=== PATIENT | female | born 1955 | race Caucasian/White ===

== ENCOUNTER → 2016-11-20 | Outpatient (CLI) | payer BC ==
[~2016-11-20] MED LIST: AC500T PO; CLOP75TA PO; KLOR CON; MELO-195 PO; METO200T6; NFNEB10T PO; OSLT75C PO; Pravastatin Sodium PO; TELM80TA3 PO; TRAM50TA2 PO; XANAX; [UNRECOGNIZED DRUG - CODE]; [UNRECOGNIZED DRUG - OTHER]
--- NOTE | 2016-11-20 13:42 | Diagnostic Imaging Report ---
Thoracic spine. INDICATION: Back pain. AP, lateral, and swimmer views were obtained. On the AP view there is dextroscoliosis of the midthoracic spine and levoscoliosis of the thoracolumbar junction and upper lumbar spine. These findings are perhaps slightly worse than noted on the chest exam of 10/25/2011. There is degenerative disc and bony disease involving the mid and lower thoracic spine as well. There is no fracture or acute bony abnormality appreciated. There is no sign of a paraspinal mass. IMPRESSION: 1. There is no evidence for an acute bony abnormality. 2. There is degenerative disease involving the mid and lower thoracic spine including dextroscoliosis of the mid thoracic spine and levoscoliosis of the thoracolumbar junction and upper lumbar spine. 3. If there is clinical concern regarding spinal stenosis or nerve root encroachment, then MRI would be recommended for additional study. Dictated by: Dictated on workstation # [id number]
--- NOTE | 2016-11-20 14:26 | Diagnostic Imaging Report ---
EXAMINATION: Lumbar spine. INDICATION: Back pain. AP, lateral, and spot lateral views were obtained. COMPARISON: There are no previous lumbar spine examinations available for comparison. FINDINGS: As noted on the thoracic spine exam performed in conjunction with this study, there is levoscoliosis of the thoracolumbar junction and upper lumbar spine. The intervertebral spaces are fairly well maintained. The lateral view also shows a 10-20% compression fracture of the inferior endplate of L1. I suspect this injury is long-standing in nature. There is no acute bony abnormality noted. There is no sign of a paraspinal mass. There are vascular wire mesh stent grafts in the region of the common iliac artery origins. There is mild symmetrical sclerosis of the sacroiliac joints. IMPRESSION: 1. The compression deformity of the inferior endplate of L1 is most likely long-standing in nature. There is no acute bony abnormality noted. 2. There is levoscoliosis of the thoracolumbar junction and upper lumbar spine. 3. If there is clinical concern regarding spinal stenosis or nerve root encroachment, then MRI would be recommended for additional study. Dictated by: Dictated on workstation # [id number]
== END ==
LOC: RAD 10:08
PROVIDERS: ATTEND Chiropractor
DX: M54.5 Low back pain (principal); M54.6 Pain in thoracic spine
CPT/HCPCS: 72072; 72100

== ENCOUNTER → 2017-05-12 | Outpatient (CLI) | payer BC ==
--- NOTE | 2017-05-12 15:33 | Diagnostic Imaging Report ---
Bilateral screening mammogram 2D views with tomosynthesis. The current study was also evaluated with a Computer Aided Detection (CAD) system. INDICATION: Screening. No current complaints stated on the questionnaire. COMPARISON: 11/21/15 FINDINGS: The breasts are composed of heterogeneously dense parenchyma which may decrease mammographic sensitivity. Benign-appearing calcifications are seen. Allowing for technique and positional differences, no suspicious change is seen. IMPRESSION: No significant change. ACR BI-RADS Category 2: Benign findings. Result letter will be mailed to the patient. Note: At least 10% of breast cancer is not imaged by mammography. Dictated by: Dictated on workstation # [id number]
== END ==
LOC: RAD 10:01
PROVIDERS: ATTEND Nurse Practitioner Family
DX: Z12.31 Encounter for screening mammogram for malignant neoplasm of breast (principal)
CPT/HCPCS: 77067

== ENCOUNTER → 2018-01-05 | Outpatient (CLI) | payer BC ==
--- NOTE | 2018-01-05 12:42 | Diagnostic Imaging Report ---
INDICATION: History of tobacco use with a approximately 30 pack year history. TECHNIQUE: Noncontrast, low-dose CT imaging performed according to lung cancer screening protocol. COMPARISON: CT abdomen and pelvis 03/03/2012 FINDINGS: HEART/MEDIASTINUM: Heart size is borderline. There is dense mitral and to a lesser degree aortic valvular calcification. At least moderate severity coronary artery calcification present. Thoracic aortic contour unremarkable. No suggestion for pathologically enlarged mediastinal lymph nodes on limited, noncontrast imaging. LUNGS: Moderately advanced emphysematous changes about the lung parenchyma. No infiltrate. Calcified granuloma is present. MEASURED PULMONARY NODULES: Image 203, series 4, solid nodule subpleural region posterior lateral left lower lobe maximum size 4 mm. Image 95, series 4, mixed cavitary and solid nodule 12 x 11 x 12 mm. Image 53, series 4, predominantly cavitary slightly thickened peripheral thurman anterior medial aspect of the left upper lobe 10 x 7 mm. Image 59, series 4, predominantly cavitary slightly thickened peripheral thurman medial aspect of the left upper lobe at 7 mm. OTHER: Rather prominent rightward curvature of the thoracic spine and advanced degenerative changes. This does result in some distortion of the mediastinal chest anatomy. Moderate compression deformity T12 vertebral body, to a lesser degree L1 anterior wedging, likely nonacute. Rather prominent diffuse bony demineralization. A 3.8 x 2.6 cm right and 2.4 x 1.7 cm left adrenal gland masses are present. Perhaps slightly increased size from prior study but favor probable adenomas. IMPRESSION: 1. Multiple mixed solid as well as cavitary semisolid nodules. Findings are superimposed on advanced emphysematous changes about the lung parenchyma. 2. At least moderate severity coronary artery calcification. 3. Bilateral adrenal gland masses perhaps slightly increased in size from prior imaging but favor probable adenomas. LUNG-RADS CATEGORY: 3B-S LUNG SCREENING MANAGEMENT/RECOMMENDATIONS: Six-month followup low dose CT examination. Notes: It is noted that this is a low dose CT examination. As a technical result, the examination is limited in overall assessment compared to a conventional CT examination of the chest. Dictated by: Dictated on workstation # [id number]
== END ==
LOC: RAD 09:00
PROVIDERS: ATTEND Nurse Practitioner Family
DX: R91.8 Other nonspecific abnormal finding of lung field (principal); I25.10 Atherosclerotic heart disease of native coronary artery without angina pectoris; E27.9 Disorder of adrenal gland, unspecified; Z87.891 Personal history of nicotine dependence

== ENCOUNTER 2021-03-28 15:29 | Emergency (ER) | payer BC, OTHER ==
[2021-03-28 16:02] LABS: BASOPHILS # (AUTO) 0.1 10^3/uL (0.0-0.1); BASOPHILS % (AUTO) 1 % (0-10); EOSINOPHILS # (AUTO) 0.3 10^3/uL (0.0-0.3); EOSINOPHILS % (AUTO) 4 % (0-10); HEMATOCRIT 48 % (35-52); LYMPHOCYTES # (AUTO) 3.7 10^3/uL (1.0-4.0); LYMPHOCYTES % (AUTO) 47 % (12-44); MEAN CORPUSCULAR HEMOGLOBIN 29 pg (25-34); MEAN CORPUSCULAR HGB CONC 31 g/dL (32-36); MEAN CORPUSCULAR VOLUME 93 fL (80-99); MEAN PLATELET VOLUME 8.8 fL (9.0-12.2); MONOCYTES # (AUTO) 0.4 10^3/uL (0.0-1.0); MONOCYTES % (AUTO) 6 % (0-12); NEUTROPHILS # (AUTO) 3.4 10^3/uL (1.8-7.8); NEUTROPHILS % (AUTO) 42 % (42-75); PLATELET COUNT 291 10^3/uL (130-400)
[2021-03-28 16:19] LABS: CHLORIDE 99 MMOL/L (98-107); POTASSIUM 3.8 MMOL/L (3.6-5.0); SODIUM 139 MMOL/L (135-145)
[2021-03-28 16:20] LABS: CALCIUM 9.4 MG/DL (8.5-10.1); EOSINOPHILS % (MANUAL) 4 %; LYMPHOCYTES % (MANUAL) 38 %; MONOCYTES % (MANUAL) 13 %; NEUTROPHILS % (MANUAL) 45 %; RBC MORPH NORMAL
--- NOTE | 2021-03-28 16:20 | Diagnostic Imaging Report ---
INDICATION: Altered mental status. Portable chest at 4:06 p.m. Comparison is made to a study from 10/25/2011. There is a 1.8 x 3.5 cm oval opacity in the left upper lobe that was not present on the prior exam. There are no infiltrates, effusions or pneumothoraces. IMPRESSION: Oval opacity in the left upper lung. Neoplasm cannot be excluded. Further evaluation with CT chest recommended. Dictated by: Dictated on workstation # [id number]
[2021-03-28 16:21] LABS: GLUCOSE 89 MG/DL (70-105); TOTAL PROTEIN 7.6 GM/DL (6.4-8.2)
[2021-03-28 16:22] LABS: CARBON DIOXIDE 27 MMOL/L (21-32); FIBRIN DEGRADATION PRODUCTS 1.8 UG/ML (0.00-0.49); PROTHROMBIN TIME PATIENT 13.8 SEC (12.2-14.7)
[2021-03-28 16:23] LABS: BILIRUBIN,TOTAL 0.4 MG/DL (0.1-1.0)
[2021-03-28 16:24] LABS: ALKALINE PHOSPHATASE 131 U/L (40-136)
[2021-03-28 16:25] LABS: GFR ESTIMATED 63
[2021-03-28 16:26] LABS: BUN/CREATININE RATIO 10
[2021-03-28 16:28] LABS: ALANINE AMINOTRANSFERASE 14 U/L (0-55)
[2021-03-28 16:48] LABS: FREE T4 (FREE THYROXINE) 1.17 NG/DL (0.70-1.48)
--- NOTE | 2021-03-28 16:54 | Diagnostic Imaging Report ---
CLINICAL INDICATION: Patient with neural deficit. Patient with trouble speaking and balance prior to arrival. EXAM: Axial CT scan of the brain performed without IV contrast. High-resolution axial CT brain images with sagittal and coronal reformations were also created. Auto Exposure Controls were utilized during the CT exam to meet ALARA standards for radiation dose reduction. COMPARISON: Head CT without contrast dated 10/25/2011. FINDINGS: There is no evidence of intracranial hemorrhage. There is interval development of a small area of cortical and subcortical low attenuation involving the high posterior left frontal lobe region. There is a focal calcification seen near the region. There is interval development of multiple punctate calcifications involving leptomeningeal regions of both cerebral hemispheres with the left side more than the right. There is interval development of linear low density involving the inferior aspect of the right cerebellum and left cerebellum. There is progression of low-density involving both cerebral hemispheres likely representing slight progression of chronic small vessel ischemic disease. There is no brain herniation or midline shift. There is hydrocephalus. Basilar cistern is unremarkable. Extracranial soft tissues, skull, and orbits are unremarkable. There is consolidation of the right maxillary sinus with sclerosis and thickening of the right maxillary sinus. There is medial convexity extending from the right maxillary sinus into the right nasal cavity. This finding has progressed in the interim. A mucocele or polyp may be considered. Mastoid air cells are clear. IMPRESSION: 1: There is no definite evidence of acute cerebral infarct, intracranial hemorrhage, brain herniation or midline shift. There is no hydrocephalus. If there is continued concern for acute cerebral infarct, MRI of the brain would better evaluate. 2: There is interval development of multiple punctate leptomeningeal calcifications involving both cerebral hemispheres with the left side more than right. This is likely related to a prior infectious or inflammatory process. 3: There is interval development of a small transcortical and subcortical area of low attenuation involving the high posterior left frontal lobe region. There is a focal calcification seen near the region. This may represent sequelae from prior infectious or inflammatory process or a small chronic infarct. 4: There is interval development of chronic small vessel ischemic disease. 5: Interval increased size of the consolidation of the right maxillary sinus with medial convex extension into the right nasal cavity region which may represent mucocele or polyp. Results of this report discussed with Fritz Grant APRN via the telephone on 03/28/2021 at 1635 hours. Dictated by: Dictated on workstation # [id number]
[2021-03-28 16:58] LABS: BILIRUBIN,URINE NEGATIVE (NEGATIVE); CLARITY,URINE CLEAR; COLOR,URINE YELLOW; GLUCOSE, URINE (UA) NEGATIVE (NEGATIVE); KETONES,URINE NEGATIVE (NEGATIVE); LEUKOCYTE ESTERASE ,URINE TRACE (NEGATIVE); NITRITE,URINE NEGATIVE (NEGATIVE); PROTEIN,URINE NEGATIVE (NEGATIVE)
[2021-03-28 17:04] LABS: BACTERIA,URINE NEGATIVE /HPF
[2021-03-28] MEDS ORDERED: NS 100 ML (IVPB) BAG IV ONE (17:30)
[2021-03-28] MEDS ORDERED: HOLD METFORMIN - RECEIVED CONTRAST 20 ML VIAL IV SCH (17:30)
[2021-03-28] MEDS ORDERED: IOHEXOL 350 MG/ML 100 ML (OMNIPAQUE 350) VIAL IV ONE (17:30)
[2021-03-28] MEDS ORDERED: AMOXICILLIN 500 MG (POLYMOX) CAP PO STA (18:07)
[2021-03-28] MEDS ORDERED: ACYCLOVIR 400 MG TABLET (ZOVIRAX) PO STA (18:07)
[2021-03-28] MEDS ORDERED: CLOPIDOGREL 75 MG (PLAVIX) TABLET PO ONE (18:15)
[2021-03-28] MEDS ORDERED: ASPIRIN 325 MG (5 GR) TABLET PO ONE (18:15)
[2021-03-28] MEDS ORDERED: predniSONE 20 MG TAB PO ONE (18:15)
[2021-03-28] MEDS ORDERED: predniSONE 20 MG TAB ONE (18:16)
--- NOTE | 2021-03-28 18:41 | Diagnostic Imaging Report ---
PROCEDURE: CT angiography of the head and CT angiography of the neck with and without contrast. TECHNIQUE: Contiguous noncontrast images were obtained from the skull base through the vertex. After intravenous contrast administration, helical CT angiography of the neck was performed. Source data was reformatted into 3D MIP projections. Delayed post contrast acquisition was also obtained. Auto Exposure Controls were utilized during the CT exam to meet ALARA standards for radiation dose reduction. INDICATION: Dysarthria. COMPARISON: CT head of earlier the same day. CT chest from 01/05/2018. FINDINGS: CTA NECK: No dissection of the aortic arch. Moderate atherosclerotic plaquing at the great vessels which remain patent although there is moderate luminal narrowing at the origin of the left common carotid artery from the aortic arch. Otherwise, bilateral common carotid arteries are widely patent. Calcified atherosclerotic plaquing results in approximately 50% luminal narrowing on the left and 25% luminal narrowing on the right. The cervical divisions of the internal carotid arteries remain patent without stenosis elsewhere. The bilateral vertebral arteries are codominant with a large amount of atherosclerotic plaquing present on the left. Due to small size and atherosclerotic plaquing, there are sites of probable high-grade stenosis of the left vertebral artery. Right vertebral artery remains patent. In the left upper lobe of the lung, there is a cavitary mass with thick irregular wall measuring 3.3 x 3.4 cm. This corresponds to a site of previously noted small cavitary lesion on lung cancer screening that is highly concerning for primary lung cancer. Enlarged mediastinal lymph node in the AP window measures 1.2 cm. CTA HEAD: Bilateral distal internal carotid arteries are patent and without terminal aneurysm. The M1 and M2 divisions of middle cerebral arteries are patent. Posterior cerebral arteries are patent. Anterior cerebral arteries are patent. No pathologic enhancement on delayed phase imaging. Dural venous sinuses remain patent. No change in the right maxillary sinus complete opacification. IMPRESSION: 1. No intracranial large vessel occlusion. 2. Atherosclerotic plaquing results in moderate stenosis at the origin of the left common carotid artery from the aortic arch 3. Moderate stenosis at the left ICA origin due to atherosclerotic plaquing. Mild narrowing at the origin of the right ICA. 4. Cavitary lung mass in the left upper lobe is most indicative of a primary lung cancer. Regional metastasis with enlarged mediastinal lymph node. Dictated by: Dictated on workstation # [id number]
--- NOTE | 2021-03-28 18:57 | ED Neurological Problem ---
General Chief Complaint: Neuro-Stroke Like Symptoms Stated Complaint: STROKE SYMPTOMS Nursing Triage Note: ARRIVED VIA AMB TO ROOM 03. STATES FRIDAY NGHT SHE WAS HAVING TROUBLE TALKING, SAT WAS FINE, SUDAY STUMBLED AND WAS LIGHT HEADED, AND TODAY WORDS ARE NOT SOUNDING RIGHT AGAIN AND HER SMILE WAS DIFFERENT ON THE LEFT. Source: patient Exam Limitations: no limitations History of Present Illness Date Seen by Provider: Mar 28, 2021 Time Seen by Provider: 15:35 Initial Comments Patient presents to emergency room with primary complaint of right facial numbness and weakness sparing the forehead that started on March 23 while she was at the [facility]. She also reports having some episodes of lightheadedness and an episode of stumbling. She denies any weakness, numbness, or paresthesias in the extremities except for some mild paresthesia in the left hand that is chronic. She reports speech difficulties with enunciating words. She has no difficulty with word finding or sentence formulation, but she does have difficulty with the mechanics of speaking the words due to facial weakness. She denies any known cardiovascular disease. She does smoke and has hypertension and hyperlipidemia. Allergies and Home Medications Allergies Coded Allergies: codeine (Verified Allergy, Unknown, 11/15/07) Home Medications Acetaminophen 500 Mg Tablet, 1,000 MG PO Q6H PRN, (Reported) Amoxicillin 500 Mg Capsule, 1,000 MG PO BID Prescribed by: TED HEARN on 03/28/211858 Aspirin 81 Mg Tablet.dr, 81 MG PO DAILY Prescribed by: TED HEARN on 03/28/211858 Clopidogrel Bisulfate 75 Mg Tablet, 1 EACH PO DAILY, (Reported) Clopidogrel Bisulfate 75 Mg Tablet, 75 MG PO DAILY Prescribed by: TED HEARN on 03/28/211858 Nebivolol Hcl 10 Mg Tablet, 10 MG PO DAILY, (Reported) Oseltamivir Phosphate 75 Mg Cap, 75 MG PO BID, (Reported) Prednisone 20 Mg Tab, 40 MG PO DAILY Prescribed by: TED HEARN on 03/28/211858 Telmisartan 80 Mg Tablet, 80 MG PO DAILY, (Reported) Valacyclovir HCl 1,000 Mg Tablet, 1,000 MG PO TID Prescribed by: TED HEARN on 8/11/21 1859 [Pravastatin Sodium] , 20 MG PO HS, (Reported) Patient Home Medication List Home Medication List Reviewed: Yes Review of Systems Review of Systems Constitutional: no symptoms reported Eyes: No Symptoms Reported Ears, Nose, Mouth, Throat: no symptoms reported Respiratory: see HPI Cardiovascular: see HPI Gastrointestinal: no symptoms reported Genitourinary: no symptoms reported : No Musculoskeletal: no symptoms reported Skin: no symptoms reported Psychiatric/Neurological: See HPI Endocrine: No Symptoms Reported Hematologic/Lymphatic: No Symptoms Reported Past Eisllcf-Xfupwk-Dyleyk Hx Patient Social History Tobacco Use?: Yes Tobacco type used: Cigarettes Smoking Status: Current Everyday Smoker Alcohol Frequency: Rarely Past Medical History Surgeries: Yes Abdominal (Colonoscopy with polypectomy), Vascular Surgery (Iliac stents) Respiratory: Yes (Tobaccoism) Cardiac: Yes High Cholesterol, Hypertension Neurological: No : No Reproductive Disorders: No Genitourinary: No Gastrointestinal: No Musculoskeletal: No Endocrine: No HEENT: No Cancer: No Psychosocial: No Physical Exam Vital Signs Vital Signs - First Documented 03/28/21 03/28/21 15:30 19:37 Temp 36.1 Pulse 67 Resp 16 B/P (MAP) 191/94 Pulse Ox 98 O2 Delivery Room Air Capillary Refill : Less Than 3 Seconds Height, Weight, BMI Height: '" Weight: lbs. oz. kg; BMI Method: General Appearance: WD/WN, no apparent distress HEENT: PERRL/EOMI, other (Right-sided facial weakness) Neck: normal inspection; No thyromegaly Respiratory: normal breath sounds, no respiratory distress, no accessory muscle use, wheezing (Mild,), plerual rub Cardiovascular: regular rate, rhythm, no edema, no murmur Gastrointestinal: normal bowel sounds, non tender, soft Extremities: normal inspection, no pedal edema Neurologic/Psychiatric: no motor/sensory deficits, alert, normal mood/affect, oriented x 3 Crainal Nerves: normal hearing, normal speech, PERRL Coordination/Gait: normal finger to nose, normal gait Motor/Sensory: no motor deficit, no sensory deficit, no pronator drift Skin: normal color, warm/dry Stroke NIH Stroke Scale Assessment Level of Consciousness: 0=Alert (0), Level of Consciousness-Questions: 0=Answers both month/age (0), LOC Commands: 0=Performs both tasks (0), Visual Myers: 0=No visual loss (0), Facial Movement (Facial Paresis): 1=Minor paralysis (1), Motor Function-Arms Right: 0=No drift (0), Motor Function-Arms Left: 0=No drift (0), Motor Function-Legs Right: 0=No drift (0), Motor Function-Legs Left: 0=No drift (0), Limb Ataxia: 0=Absent (0), Sensory: 0=Normal:no loss (0), Best Language: 0=No aphasia (0), Dysarthria: 1=Mild to moderate loss (1), Extinction & Inattention: 0=No abnormality (0), Total: 2 Progress/Results/Core Measures Results/Orders Lab Results Laboratory Tests Test 03/28/21 15:40 03/28/21 16:31 Range/Units White Blood Count 8.0 4.3-11.0 10^3/uL Red Blood Count 5.18 H 3.80-5.11 10^6/uL Hemoglobin 15.0 11.5-16.0 g/dL Hematocrit 48 35-52 % Mean Corpuscular Volume 93 80-99 fL Mean Corpuscular Hemoglobin 29 25-34 pg Mean Corpuscular Hemoglobin Concent 31 L 32-36 g/dL Red Cell Distribution Width 12.9 10.0-14.5 % Platelet Count 291 130-400 10^3/uL Mean Platelet Volume 8.8 L 9.0-12.2 fL Immature Granulocyte % (Auto) 0 % Neutrophils (%) (Auto) 42 42-75 % Lymphocytes (%) (Auto) 47 H 12-44 % Monocytes (%) (Auto) 6 0-12 % Eosinophils (%) (Auto) 4 0-10 % Basophils (%) (Auto) 1 0-10 % Neutrophils # (Auto) 3.4 1.8-7.8 10^3/uL Lymphocytes # (Auto) 3.7 1.0-4.0 10^3/uL Monocytes # (Auto) 0.4 0.0-1.0 10^3/uL Eosinophils # (Auto) 0.3 0.0-0.3 10^3/uL Basophils # (Auto) 0.1 0.0-0.1 10^3/uL Immature Granulocyte # (Auto) 0.0 0.0-0.1 10^3/uL Neutrophils % (Manual) 45 % Lymphocytes % (Manual) 38 % Monocytes % (Manual) 13 % Eosinophils % (Manual) 4 % Blood Morphology Comment NORMAL Prothrombin Time 13.8 12.2-14.7 SEC INR Comment 1.0 0.8-1.4 Activated Partial Thromboplast Time 39 H 24-35 SEC D-Dimer 1.80 H 0.00-0.49 UG/ML Sodium Level 139 135-145 MMOL/L Potassium Level 3.8 3.6-5.0 MMOL/L Chloride Level 99 98-107 MMOL/L Carbon Dioxide Level 27 21-32 MMOL/L Anion Gap 13 5-14 MMOL/L Blood Urea Nitrogen 9 7-18 MG/DL Creatinine 0.90 0.60-1.30 MG/DL Estimat Glomerular Filtration Rate 63 BUN/Creatinine Ratio 10 Glucose Level 89 70-105 MG/DL Calcium Level 9.4 8.5-10.1 MG/DL Corrected Calcium 9.4 8.5-10.1 MG/DL Total Bilirubin 0.4 0.1-1.0 MG/DL Aspartate Amino Transf (AST/SGOT) 14 5-34 U/L Alanine Aminotransferase (ALT/SGPT) 14 0-55 U/L Alkaline Phosphatase 131 40-136 U/L Troponin I < 0.028 <0.028 NG/ML Total Protein 7.6 6.4-8.2 GM/DL Albumin 4.0 3.2-4.5 GM/DL Thyroid Stimulating Hormone (TSH) 0.88 0.35-4.94 UIU/ML Free Thyroxine 1.17 0.70-1.48 NG/DL Urine Color YELLOW Urine Clarity CLEAR Urine pH 6.0 5-9 Urine Specific [place] <=1.005 1.016-1.022 Urine Protein NEGATIVE NEGATIVE Urine Glucose (UA) NEGATIVE NEGATIVE Urine Ketones NEGATIVE NEGATIVE Urine Nitrite NEGATIVE NEGATIVE Urine Bilirubin NEGATIVE NEGATIVE Urine Urobilinogen 0.2 < = 1.0 MG/DL Urine Leukocyte Esterase TRACE H NEGATIVE Urine RBC (Auto) NEGATIVE NEGATIVE Urine RBC NONE /HPF Urine WBC 2-5 /HPF Urine Squamous Epithelial Cells NONE /HPF Urine Renal Epithelial Cells NONE /HPF Urine Crystals NONE /LPF Urine Bacteria NEGATIVE /HPF Urine Casts NONE /LPF Urine Mucus NEGATIVE /LPF Urine Culture Indicated NO My Orders Orders - TED LOMBARDO MD Cbc With Automated Diff (03/28/21 15:54) Protime With Inr (03/28/21 15:54) Partial Thromboplastin Time (03/28/21:54) Comprehensive Metabolic Panel (03/28/21:54) Fibrin Degradation Products (03/28/21:54) Troponin I (03/28/21:54) Ua Culture If Indicated (03/28/21 15:54) Chest 1 View, Ap/Pa Only (03/28/21:54) Ekg Tracing (03/28/21:54) Accucheck Stat ONCE (03/28/21 15:54) Ed Iv/Invasive Line Start (03/28/21:54) Ed Iv/Invasive Line Start (03/28/21:54) Vital Signs Stroke Patient Q15M (03/28/21 15:54) Ct Head Wo-R/O Stroke (03/28/21:54) O2 (03/28/21:54) Intake & Output 06,14,22 (03/28/21 15:54) Monitor-Rhythm Ecg Trace Only (03/28/21 15:54) Dysphagia Screening Tool (03/28/21 15:54) Thyroid Stimulating Hormone (03/28/21:54) Free T4 (Free Thyroxine) (03/28/21 15:54) Manual Differential (03/28/21 15:40) Ct Angio Head/Neck (03/28/21 17:11) Iohexol Injection (Omnipaque 350 Mg/Ml 1 (03/28/21 17:30) Received Contrast (Hold Metformin- Contr (03/28/21 17:30) Ns (Ivpb) (Sodium Chloride 0.9% Ivpb Bag (03/28/21 17:30) Amoxicillin Capsule (Polymox Capsule) (03/28/21 18:07) Acyclovir Capsule/Tablet (Zovirax Caps (03/28/21 18:07) Clopidogrel Tablet (Plavix Tablet) (03/28/21 18:15) Aspirin Tablet (Aspirin Tablet) (03/28/21 18:15) Prednisone Tablet (Deltasone Tablet) (03/28/21 18:15) Prednisone Tablet (Deltasone Tablet) (03/28/21 18:16) Medications Given in ED Current Medications Medications Dose Ordered Sig/Anila Route Start Time Stop Time Status Last Admin Dose Admin Aspirin 325 mg ONCE ONCE PO 03/28/21 18:15 03/28/21 18:16 DC 03/28/21 18:33 325 MG Clopidogrel Bisulfate 75 mg ONCE ONCE PO 03/28/21 18:15 03/28/21 18:16 DC 03/28/21 18:33 75 MG Iohexol 100 ml ONCE ONCE IV 03/28/21 17:30 03/28/21 17:37 DC 03/28/21 18:07 75 ML Prednisone 40 mg ONCE ONCE PO 03/28/21 18:15 03/28/21 18:16 DC 03/28/21 18:33 40 MG Sodium Chloride 100 ml ONCE ONCE IV 03/28/21 17:30 03/28/21 17:37 DC 03/28/21 18:07 80 ML Vital Signs/I&O 03/28/21 03/28/21 15:30 19:37 Temp 36.1 36.1 Pulse 67 79 Resp 16 16 B/P (MAP) 191/94 Pulse Ox 98 96 O2 Delivery Room Air Room Air Progress Progress Note : Progress Note Patient was not a thrombolytic candidate as her symptoms are several days old. Stroke work-up was pursued. No cute abnormalities were found on CT imaging, but chronic findings were noted.. Advanced CT imaging was CT angiogram head and neck was obtained. It showed no additional acute abnormalities of the brain but there was moderate stenosis of the left neck vessels. On the CT a cavitary lung mass was also identified. I shared this information with the patient and her . We discussed the need for very close follow-up for both the pulmonary lesion and further stroke work-up. I reviewed the case with Dr. Romo as well. The etiologies of her symptoms are unclear. She has right facial weakness that spares the forehead. This could either be an incomplete Ortiz's palsy or a stroke syndrome. She has a sinusitis identified on CT on the right which would support probable Ortiz's palsy. She was therefore treated with acyclovir, amoxicillin and prednisone. However, stroke cannot be ruled out. Therefore she was also treated with Plavix, and aspirin Initial ECG Impression Date: Mar 28, 2021 Initial ECG Impression Time: 15:38 Initial ECG Rate: 63 Initial ECG Rhythm: Normal Sinus Comment Sinus rhythm with no diagnostic ST elevation or depression. Subtle ST changes. No abnormal intervals or axis deviation. Diagnostic Imaging Diagonstic Imaging: Xray Plain Films/CT/US/NM/MRI: chest Comments NAME: ROSA SHERIFF [facility] REC#: [id number] PT STATUS: REG ER : 1955 PHYSICIAN: TED LOMBARDO MD ADMIT DATE: 03/28/21/ER Signed Date of Exam:03/28/21 CHEST 1 VIEW, AP/PA ONLY INDICATION: Altered mental status. Portable chest at 4:06 p.m. Comparison is made to a study from 10/25/2011. There is a 1.8 x 3.5 cm oval opacity in the left upper lobe that was not present on the prior exam. There are no infiltrates, effusions or pneumothoraces. IMPRESSION: Oval opacity in the left upper lung. Neoplasm cannot be excluded. Further evaluation with CT chest recommended. Dictated by: Dictated on workstation # [id number] Dict: 03/28/21 1617 Trans: 03/28/21 1702 [facility] [id number] Interpreted by: JAROD EDWARDS MD Electronically signed by: JAROD EDWARDS MD 03/28/21 1702 Diagonstic Imaging: CT Plain Films/CT/US/NM/MRI: head Comments NAME: ROSA SHERIFF [facility] REC#: [id number] PT STATUS: REG ER : 1955 PHYSICIAN: TED LOMBARDO MD ADMIT DATE: 03/28/21/ER Signed Date of Exam:03/28/21 CT HEAD WO-R/O STROKE CLINICAL INDICATION: Patient with neural deficit. Patient with trouble speaking and balance prior to arrival. EXAM: Axial CT scan of the brain performed without IV contrast. High-resolution axial CT brain images with sagittal and coronal reformations were also created. Auto Exposure Controls were utilized during the CT exam to meet ALARA standards for radiation dose reduction. COMPARISON: Head CT without contrast dated 10/25/2011. FINDINGS: There is no evidence of intracranial hemorrhage. There is interval development of a small area of cortical and subcortical low attenuation involving the high posterior left frontal lobe region. There is a focal calcification seen near the region. There is interval development of multiple punctate calcifications involving leptomeningeal regions of both cerebral hemispheres with the left side more than the right. There is interval development of linear low density involving the inferior aspect of the right cerebellum and left cerebellum. There is progression of low-density involving both cerebral hemispheres likely representing slight progression of chronic small vessel ischemic disease. There is no brain herniation or midline shift. There is hydrocephalus. Basilar cistern is unremarkable. Extracranial soft tissues, skull, and orbits are unremarkable. There is consolidation of the right maxillary sinus with sclerosis and thickening of the right maxillary sinus. There is medial convexity extending from the right maxillary sinus into the right nasal cavity. This finding has progressed in the interim. A mucocele or polyp may be considered. Mastoid air cells are clear. IMPRESSION: 1: There is no definite evidence of acute cerebral infarct, intracranial hemorrhage, brain herniation or midline shift. There is no hydrocephalus. If there is continued concern for acute cerebral infarct, MRI of the brain would better evaluate. 2: There is interval development of multiple punctate leptomeningeal calcifications involving both cerebral hemispheres with the left side more than right. This is likely related to a prior infectious or inflammatory process. 3: There is interval development of a small transcortical and subcortical area of low attenuation involving the high posterior left frontal lobe region. There is a focal calcification seen near the region. This may represent sequelae from prior infectious or inflammatory process or a small chronic infarct. 4: There is interval development of chronic small vessel ischemic disease. 5: Interval increased size of the consolidation of the right maxillary sinus with medial convex extension into the right nasal cavity region which may represent mucocele or polyp. Results of this report discussed with Fritz Grant APRN via the telephone on 03/28/2021 at 1635 hours. Dictated by: Dictated on workstation # [id number] Dict: 03/28/21 1618 Trans: 03/28/21 171 [facility] [id number] Interpreted by: KIMANI MERLOS MD Electronically signed by: KIMANI MERLOS MD 03/28/21 171 Diagonstic Imaging: CT Comments NAME: ZAKI SHERIFF [facility] REC#: [id number] PT STATUS: REG ER : 1955 PHYSICIAN: TED LOMBARDO MD ADMIT DATE: 03/28/21/ER Signed Date of Exam:03/28/21 CT ANGIO HEAD/NECK PROCEDURE: CT angiography of the head and CT angiography of the neck with and without contrast. TECHNIQUE: Contiguous noncontrast images were obtained from the skull base through the vertex. After intravenous contrast administration, helical CT angiography of the neck was performed. Source data was reformatted into 3D MIP projections. Delayed post contrast acquisition was also obtained. Auto Exposure Controls were utilized during the CT exam to meet ALARA standards for radiation dose reduction. INDICATION: Dysarthria. COMPARISON: CT head of earlier the same day. CT chest from 01/05/2018. FINDINGS: CTA NECK: No dissection of the aortic arch. Moderate atherosclerotic plaquing at the great vessels which remain patent although there is moderate luminal narrowing at the origin of the left common carotid artery from the aortic arch. Otherwise, bilateral common carotid arteries are widely patent. Calcified atherosclerotic plaquing results in approximately 50% luminal narrowing on the left and 25% luminal narrowing on the right. The cervical divisions of the internal carotid arteries remain patent without stenosis elsewhere. The bilateral vertebral arteries are codominant with a large amount of atherosclerotic plaquing present on the left. Due to small size and atherosclerotic plaquing, there are sites of probable high-grade stenosis of the left vertebral artery. Right vertebral artery remains patent. In the left upper lobe of the lung, there is a cavitary mass with thick irregular wall measuring 3.3 x 3.4 cm. This corresponds to a site of previously noted small cavitary lesion on lung cancer screening that is highly concerning for primary lung cancer. Enlarged mediastinal lymph node in the AP window measures 1.2 cm. CTA HEAD: Bilateral distal internal carotid arteries are patent and without terminal aneurysm. The M1 and M2 divisions of middle cerebral arteries are patent. Posterior cerebral arteries are patent. Anterior cerebral arteries are patent. No pathologic enhancement on delayed phase imaging. Dural venous sinuses remain patent. No change in the right maxillary sinus complete opacification. IMPRESSION: 1. No intracranial large vessel occlusion. 2. Atherosclerotic plaquing results in moderate stenosis at the origin of the left common carotid artery from the aortic arch 3. Moderate stenosis at the left ICA origin due to atherosclerotic plaquing. Mild narrowing at the origin of the right ICA. 4. Cavitary lung mass in the left upper lobe is most indicative of a primary lung cancer. Regional metastasis with enlarged mediastinal lymph node. Dictated by: Dictated on workstation # [id number] Dict: 03/28/211823 Trans: 03/28/211852 [facility] [id number] Interpreted by: MUNIR LÓPEZ MD Electronically signed by: MUNIR LÓPEZ MD 03/28/211852 Departure Impression Primary Impression: Weakness on right side of face Additional Impressions: Carotid artery stenosis Qualified Codes: I65.22 - Occlusion and stenosis of left carotid artery Lung mass Sinusitis Qualified Codes: J32.0 - Chronic maxillary sinusitis Disposition: HOME, SELF-CARE Condition: Improved Departure-Patient Inst. Decision time for Depature: 18:52 Referrals: AJ ROMO MD (PCP/Family) Primary Care Physician Patient Instructions: Ortiz's Palsy, Stroke Add. Discharge Instructions: Use your medications as prescribed. Follow-up with Dr. Romo as soon as possible. You should have further evaluation for possible stroke if symptoms persist. This may include MRI of the brain, echocardiogram, etc. You also need to discuss appropriate further work-up for the lung mass seen on CT scan. Call with questions or concerns. Return to the ER if you have worsening symptoms. All discharge instructions reviewed with patient and/or family. Voiced understanding. Scripts Prednisone (Prednisone) 20 Mg Tab 40 MG PO DAILY, #6 TAB 0 Refills Prov: TED LOMBARDO MD 03/28/21 Valacyclovir HCl (Valacyclovir) 1,000 Mg Tablet 1000 MG PO TID, #20 TAB Prov: TED LOMBARDO MD 03/28/21 Aspirin (Aspirin EC) 81 Mg Tablet. 81 MG PO DAILY, #30 TAB Prov: TED LOMBARDO MD 03/28/21 Clopidogrel Bisulfate (Plavix) 75 Mg Tablet 75 MG PO DAILY, #20 TAB Prov: TED LOMBARDO MD 03/28/21 Amoxicillin (Amoxicillin) 500 Mg Capsule 1000 MG PO BID, #40 CAP 0 Refills Prov: TED LOMBARDO MD 03/28/21 Copy Copies To 1: AJ ROMO MD, JOSHUA T MD Mar 28, 2021 18:57
[2021-03-28] MEDS ORDERED: AMOX500C2 PO (18:59)
[2021-03-28] MEDS ORDERED: CLOP75TA69 PO (18:59)
[2021-03-28] MEDS ORDERED: PRD20T PO (18:59)
[2021-03-28] MEDS ORDERED: ASPI-1238 PO (18:59)
[2021-03-28] MEDS ORDERED: VALA10007 PO (18:59)
[2021-03-28 19:37] VITALS: BP 191/94
== END 2021-03-28 19:36 | disposition home or self-care (01) ==
LOC: EDUNIT# 15:29 → ER 15:31
DX: R29.810 Facial weakness (principal); I65.22 Occlusion and stenosis of left carotid artery; J32.9 Chronic sinusitis, unspecified; R91.8 Other nonspecific abnormal finding of lung field; I10 Essential (primary) hypertension; E78.5 Hyperlipidemia, unspecified; F17.210 Nicotine dependence, cigarettes, uncomplicated; Z79.82 Long term (current) use of aspirin; Z79.899 Other long term (current) drug therapy
CPT/HCPCS: 36415; 70450; 70496; 70498; 71045; 80053; 81000; 84439; 84443; 84484; 85007; 85027; 85379; 85610; 85730; 93005

== ENCOUNTER → 2021-04-30 | Outpatient (CLI) | payer OTHER ==
[~2021-04-30] MED LIST changes: +AMOX500C2 PO; +ASPI-1238 PO; +CATHETER FLUSH 10 ML SYR IV PRN; +CLOP75TA69 PO; +HOLD METFORMIN - RECEIVED CONTRAST 20 ML VIAL IV SCH; +IOHEXOL 350 MG/ML 100 ML (OMNIPAQUE 350) VIAL IV ONE; +NS 100 ML (IVPB) BAG IV ONE; +PRD20T PO; +VALA10007 PO
--- NOTE | 2021-04-30 16:45 | Diagnostic Imaging Report ---
PROCEDURE: US carotid duplex, bilateral. TECHNIQUE: Multiple real-time grayscale images were obtained over the carotid arteries in various projections, bilaterally. Additional spectral analysis and color Doppler duplex images were also obtained. INDICATION: Stroke. Smoker. Examination shows calcified and noncalcified plaque in the carotid arteries bilaterally. No significant vessel irregularity is seen. Maximal stenosis is less than 30-40%. There is antegrade flow in all vessels. IMPRESSION: No hemodynamically significant abnormality is seen. Parameters based on the consensus panel Diaz-Scale and Doppler ultrasound criteria published June 2003, Radiology, Volume 229. DOPPLER (peak systolic velocity M/S Right Left CCA 0.60 0.87 ICA Proximal 0.84 1.7 ICA Mid 0.94 0.51 ICA Distal 0.79 1.81 RATIO 1.58 1.95 ECA 2.50 1.37 VERT 0.41 0.48 Dictated by: Dictated on workstation # [id number]
--- NOTE | 2021-04-30 18:08 | Diagnostic Imaging Report ---
PROCEDURE: MR imaging of the brain without contrast. TECHNIQUE: Multiplanar, multisequence MR imaging of the brain was performed without contrast. INDICATION: Evaluate for stroke. COMPARISON: Comparison is made with a CT angiogram of the head from March 28, 2021. FINDINGS: On the diffusion portion of the examination, there is some high diffusion signal intensity demonstrated within the posterior limb of the internal capsule on the left. This also demonstrates T2 hyperintensity and FLAIR hyperintensity and demonstrates high signal on the ADC map compatible with normalized ADC values. This therefore suggests a small subacute lacunar infarct. No other diffusion signal abnormality is demonstrated. There are remote lacunar type infarcts demonstrated within both of the cerebellar hemispheres. There are no findings of acute hemorrhage. There are some mild scattered microvascular changes in the subcortical white matter. There are no findings of vasogenic edema. There are no MR findings of intracranial mass effect or shift. There is no hydrocephalus. There is no abnormal extra-axial collection. The basilar cisterns are patent. The pituitary gland and pineal region are unremarkable. There is complete opacification of the right maxillary sinus. There is no aggressive bone destruction, but the process does appear to extend into the right nasal cavity, which suggests the possibility of an underlying polyp. The sinuses are otherwise clear. Orbital contents are unremarkable. The major expected vascular flow voids appear maintained. IMPRESSION: 1. Findings within the posterior limb of the left internal capsule suggest a subacute small lacunar infarct. ADC values are currently normalized. There are no findings of acute ischemia. 2. 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 3. No findings of hemorrhage, mass effect, hydrocephalus, or vasogenic edema. 4. Large right mucus retention cyst versus polyp in the right maxillary sinus. Dictated by: Dictated on workstation # [id number]
--- NOTE | 2021-04-30 18:16 | Diagnostic Imaging Report ---
EXAMINATION: CT chest with and without intravenous contrast. TECHNIQUE: Multiple contiguous axial images were obtained through the chest before and after the uneventful administration of intravenous contrast. All CT scans use one or more of the following dose optimizing techniques: Automated exposure control, MA and/or KvP adjustment based on patient size and exam type or iterative reconstruction. HISTORY: Lung mass. COMPARISON: 01/05/2018. FINDINGS: There is no edema or pneumonia. No pleural effusion. No pneumothorax. There is a 3.6 x 3.2 cm cavitary mass in the left upper lobe with tagging to the pleural surface. There is no axillary or supraclavicular lymphadenopathy. There is a 1.4 cm para-aortic lymph node. There is a 1.4 cm AP window lymph node. There is a 1.4 cm left hilar lymph node. Heart size is normal. There are moderate coronary artery calcifications. No pericardial effusion. Aorta is normal in caliber. Limited views of the upper abdomen show stable bilateral adrenal nodules measuring up to 2.8 x 2.4 cm on the right. There is an indeterminate 2.0 x 1.0 cm left renal lesion. There is 3.1 cm abdominal aortic aneurysm. There are no suspicious osseous lesions. There is an unchanged lower thoracic compression fracture. IMPRESSION: 1. Cavitary left upper lobe mass measuring 3.6 x 3.2 cm with AP window, para-aortic, and left hilar lymphadenopathy most consistent with a lung malignancy. 2. Stable bilateral adrenal nodules favored to be benign. 3. Abdominal aortic aneurysm measuring 3.1 cm. Dictated by: Dictated on workstation # [id number]
== END ==
LOC: RAD 14:45
PROVIDERS: ATTEND Family Medicine
DX: I65.23 Occlusion and stenosis of bilateral carotid arteries (principal); I63.50 Cerebral infarction due to unspecified occlusion or stenosis of unspecified cerebral artery; R91.8 Other nonspecific abnormal finding of lung field; E27.8 Other specified disorders of adrenal gland; I71.4 Abdominal aortic aneurysm, without rupture; F17.210 Nicotine dependence, cigarettes, uncomplicated
CPT/HCPCS: 70551; 71270; 93880

== ENCOUNTER → 2021-05-08 | Outpatient (CLI) | payer OTHER ==
[~2021-05-08] MED LIST changes: -CATHETER FLUSH 10 ML SYR IV PRN; -HOLD METFORMIN - RECEIVED CONTRAST 20 ML VIAL IV SCH; -IOHEXOL 350 MG/ML 100 ML (OMNIPAQUE 350) VIAL IV ONE; -NS 100 ML (IVPB) BAG IV ONE
--- NOTE | 2021-05-10 11:25 | Diagnostic Imaging Report ---
PET/CT INDICATION: Lung mass TECHNIQUE: PET/CT imaging was obtained from the base of the skull through the pelvis after the administration of 15.07 mCi of F-18 fluorodeoxyglucose into the left antecubital fossa. Limited CT imaging was utilized for localization and attenuation correction purposes. The low energy CT utilized for attenuation correction is not considered to be of high enough spatial resolution to allow in and of itself a separate anatomical analysis. Height: 4 feet 11 inches. Weight: 123 pounds. Blood glucose: 90. There are no prior PET/CT examinations available for comparison. The recent CT chest exam of 04/30/2021 noted a 3.6 x 3.2 cm cavitary mass in the left upper lobe near the pleural surface. There are also 1.4 cm lymph nodes in the periaortic region, the AP window and the left hilum. On this exam, the mass along the periphery of the left upper lung is hypermetabolic with a maximum SUV of 17.4. There are also numerous hypermetabolic lymph nodes involving the aorticopulmonary window, the periaortic region and the left hilum. These nodes have SUV values ranging as high as 12. In addition, there is a small isolated area of increased metabolic activity in the left apex. This has a maximum SUV of 8.4. This measures approximately 4 mm in size. There is also an area of increased hypermetabolic activity involving the medial aspect of the right scapula. This has a maximum SUV of 4.5. There is no other hypermetabolic activity identified to suggest the presence of malignancy. Physiologic activity is seen in the brain, the heart, the kidneys, the bowel and the bladder. IMPRESSION: 1. The mass along the periphery of the left upper lung seen previously is hypermetabolic. There is also hypermetabolic adenopathy involving the mediastinum and left hilum as well as a small tiny isolated focus of neoplastic disease in the left apex. In addition, there appears to be skeletal metastatic disease involving the right scapula. 2. There is no other hypermetabolic activity to suggest the presence of malignancy. There is no sign of an acute abnormality either. Dictated by: Dictated on workstation # [id number]
== END ==
LOC: RAD 09:00
PROVIDERS: ATTEND Internal Medicine Hematology & Oncology
DX: R91.8 Other nonspecific abnormal finding of lung field (principal); R93.89 Abnormal findings on diagnostic imaging of other specified body structures
CPT/HCPCS: 78815; A9552

== ENCOUNTER → 2021-05-14 | Outpatient (CLI) | payer OTHER ==
[~2021-05-14] VITALS: Ht 162 cm; Wt 77.0 kg
[2021-05-14] VITALS (11 sets, daily range): BP systolic 115–158; BP diastolic 61–82
[~2021-05-14] MED LIST changes: +HYDROcodone/APAP 5 MG/325 MG (LORTAB) TAB PO PRN; +LIDOCAINE 1% INJ 20 ML 20 ML VIAL INJ ONE; +MIDAZOLAM 2 MG/2 ML (VERSED) VIAL IVP ONE; +NS IV 1000 ML 1,000 ML IV STA; +fentaNYL INJ 100 MCG/2 ML AMP IVP ONE
[2021-05-14 08:18] LABS: HEMATOCRIT 47 % (35-52); HEMOGLOBIN 14.6 g/dL (11.5-16.0); MEAN CORPUSCULAR HEMOGLOBIN 29 pg (25-34); MEAN CORPUSCULAR HGB CONC 31 g/dL (32-36); MEAN CORPUSCULAR VOLUME 93 fL (80-99); MEAN PLATELET VOLUME 8.8 fL (9.0-12.2); PLATELET COUNT 288 10^3/uL (130-400); WHITE BLOOD COUNT 7.7 10^3/uL (4.3-11.0)
--- NOTE | 2021-05-14 10:08 | Diagnostic Imaging Report ---
TECHNIQUE: All CT scans use one or more of the following dose optimizing techniques: automated exposure control, MA and/or KvP adjustment based on patient size and exam type or iterative reconstruction. INDICATION: Left lung mass. Patient presents for CT-guided left lung biopsy. The procedure was performed utilizing conscious sedation with radiology nursing and constant patient monitoring. Patient was given a total of 100 mg of fentanyl intravenously and 1 mg of Versed intravenously. Total procedural time was approximately 14 minutes. Patient was brought to the CT suite placed on table in the supine position. Axial imaging through the chest was performed to evaluate appropriate entry site. The anterolateral upper left chest was prepped and draped usual sterile fashion. Small amount of 1% lidocaine was utilized for local anesthesia. 18-gauge coaxial Temno needle was advanced and placed with its tip along the margin of the lesion in the left upper lobe. 2 core biopsies were obtained. The needle was then repositioned and additional core biopsies were obtained. Biosentry tract sealant device was utilized. Needle was removed. Hemostasis was obtained using manual compression. Follow-up imaging does show some parenchymal hemorrhage but only trace pneumothorax. Patient tolerated procedure well and left the Department in stable condition. IMPRESSION: CT-guided left upper lobe lung mass biopsy utilizing conscious sedation. Pathology results are currently pending. Dictated by: Dictated on workstation # [id number]
--- NOTE | 2021-05-14 12:34 | Diagnostic Imaging Report ---
Indication: Status post left lung biopsy. TIME OF EXAM: 11:48 AM Correlation is made with prior chest radiograph from 06/25/2021. There is no evidence of pneumothorax, status post left upper lobe lung mass biopsy. There is some infiltrate surrounding the lesion left upper lobe consistent with some postprocedural hemorrhage. No effusion is seen. Heart size stable. Right convexity thoracic scoliotic curvature is noted. IMPRESSION: No evidence of pneumothorax, status post left lung mass biopsy. Dictated by: Dictated on workstation # [id number]
--- NOTE | 2021-05-14 14:24 | Pre-Op Note & Conscious Sedat ---
Pre-Operative Progress Note H&P Reviewed The H&P was reviewed, patient examined and no changes noted. Date H&P Reviewed: May 14, 2021 Time H&P Reviewed: 08:00 Pre-Op Diagnosis: Lung mass Conscious Sedation Pre-Proced Time 08:00 ASA Score 2 For ASA 3 and 4: Consider anesthesia and medical clearance. Also, for patients with a history of failed moderate sedation consider anesthesia. Airway Lungs Heart ASA score ASA 1: a normal healthy patient ASA 2: a patient with a mild systemic disease (mid diabetes, controlled hypertension, obesity ASA 3: a patient with a severe systemic disease that limits activity (angina, COPD, prior Myocardial infarction) ASA 4: a patient with an incapacitating disease that is a constant threat to life (CHF, renal failure) ASA 5: a moribund patient not expected to survive 24 hrs. (ruptured aneurysm) ASA 6: a declared brain- patient whose organs are being harvested. For emergent operations, add the letter E after the classification Mallampati Classification Grade 2 Sedation Plan Analgesia, Amnesia, Plan communicated to team members, Discussed options with patient/fam, Discussed risks with patient/fam The patient is an appropriate candidate to undergo the planned procedure, sedation, and anesthesia. The patient immediately re-assessed prior to indication. KIRAN SON MD May 14, 2021 14:24
== END ==
LOC: SDC 07:33
PROVIDERS: ATTEND Internal Medicine Hematology & Oncology
DX: R91.8 Other nonspecific abnormal finding of lung field (principal); R93.89 Abnormal findings on diagnostic imaging of other specified body structures; Z98.890 Other specified postprocedural states
CPT/HCPCS: 71045; 77012; 85027; 85610; 85730; 99156; C2613; 36415

== ENCOUNTER 2021-06-07 11:18 | Outpatient (CLI) | payer OTHER ==
[~2021-06-07] VITALS: Ht 149.9 cm; Wt 57.7 kg
[~2021-06-07 11:18] MED LIST changes: -HYDROcodone/APAP 5 MG/325 MG (LORTAB) TAB PO PRN; -LIDOCAINE 1% INJ 20 ML 20 ML VIAL INJ ONE; -MIDAZOLAM 2 MG/2 ML (VERSED) VIAL IVP ONE; -NS IV 1000 ML 1,000 ML IV STA; -fentaNYL INJ 100 MCG/2 ML AMP IVP ONE
[2021-06-07] MEDS ORDERED: FURO20TA4 PO (12:32)
[2021-06-07] MEDS ORDERED: LEVO25TA5 PO (12:32)
[2021-06-07] MEDS ORDERED: TELM80TA8 PO (12:32)
[2021-06-07] MEDS ORDERED: ALPR0.5T7 PO (12:32)
[2021-06-07] MEDS ORDERED: TRM50T PO (12:32)
[2021-06-07] MEDS ORDERED: PRAV20TA3 PO (12:32)
[2021-06-07] MEDS ORDERED: METO100T12 PO (12:32)
[2021-06-07] MEDS ORDERED: THYR30TA2 PO (12:32)
== END 2021-06-07 12:42 | disposition home or self-care (01) ==
LOC: PREOP 11:18
PROVIDERS: ATTEND Surgery
DX: Z01.818 Encounter for other preprocedural examination (principal)

== ENCOUNTER 2021-06-08 13:01 | Day surgery (SDC) | payer OTHER ==
[2021-06-08] VITALS (7 sets, daily range): BP systolic 84–145; BP diastolic 41–74
[~2021-06-08] VITALS: Ht 149.9 cm; Wt 57.7 kg
[~2021-06-08 13:01] MED LIST changes: +ALPR0.5T7 PO; +FURO20TA4 PO; +LEVO25TA5 PO; +METO100T12 PO; +PRAV20TA3 PO; +TELM80TA8 PO; +THYR30TA2 PO; +TRM50T PO
[2021-06-08] MEDS ORDERED: LIDOCAINE/EPI 1%-1:100,000 (XYLOCAINE) 20ML ONE (13:40)
[2021-06-08] MEDS ORDERED: 0.9% SODIUM CHLORIDE PF INJ 20 ML VIAL ONE (13:40)
[2021-06-08] MEDS ORDERED: HEParin (CENTRAL IV FLUSH) 500 UNIT/5 ML SYR ONE (13:40)
[2021-06-08] MEDS ORDERED: ceFAZolin INJECTION 1,000 MG in WATER (STERILE) FOR INJECTION 10 ML IV ONE (14:00)
[2021-06-08] MEDS ORDERED: LACTATED RINGERS 1,000 ML IV PRN (14:00)
--- NOTE | 2021-06-08 14:33 | Progress Note-Pre Operative ---
Pre-Operative Progress Note H&P Reviewed The H&P was reviewed, patient examined and no changes noted. Date Seen by Provider: Jun 08, 2021 Time Seen by Provider: 14:32 Date H&P Reviewed: Jun 08, 2021 Time H&P Reviewed: 14:32 Pre-Operative Diagnosis: lung cancer DANNA MICHELLE DO Jun 08, 2021 14:33
[2021-06-08] MEDS ORDERED: fentaNYL INJ 100 MCG/2 ML AMP ONE (15:44)
[2021-06-08] MEDS ORDERED: PROPOFOL INJECTION 50 ML IV ONE (15:44)
[2021-06-08] MEDS ORDERED: MIDAZOLAM 2 MG/2 ML (VERSED) VIAL ONE (15:44)
[2021-06-08] MEDS ORDERED: PHENYLEPHRINE 100 MCG/ML 10 ML (ANESTHESIA) SYR ONE (15:59)
--- NOTE | 2021-06-08 16:24 | Progress Note-Post Operative ---
Post-Operative Progess Note Surgeon (s)/Abnormal Psychology Teacher (s) Surgeon DANNA MICHELLE DO Abnormal Psychology Teacher: na Pre-Operative Diagnosis lung cancer Post-Operative Diagnosis same Procedure & Operative Findings Date of Procedure 06/08/21 Procedure Performed/Findings PROCEDURE: Right internal jugular port placement using ultrasound guidance. COMPLICATIONS: None. INDICATIONS: The patient is a 65 year old female with lung cancer. Patient understands the risks and benefits of port placement and wished to proceed with the procedure. Consent was signed on the chart. PROCEDURE: The patient was taken to the operating suite, was prepped and draped in the sterile fashion. A surgical pause was performed. Ultrasound was used to locate the internal jugular vein. Once located anesthetic was infiltrated above it. Using micro-access kit, the right internal vein was accessed. Dark nonpulsatile blood was withdrawn. The wire was inserted. Fluoroscopy assured proper placement. The needle was removed. The micro-access dilator was advanced over the wire and the wire was removed. The regular wire was inserted and fluoroscopy assured proper placement. The wire was then secured. Local anesthetic was used to anesthetize from the neck for tunneling down to the right chest and for pocket creation. A 15 blade scalpel was used to make an incision over the right chest. Cautery was used to dissect down to the pectoral fascia. A pocket was created with blunt dissection. The dilator sheath was then advanced over the wire under fluoroscopy and the dilator and wire were removed. The Groshong catheter was inserted through the sheath and the sheath was then removed. The Groshong wire was removed. The catheter was then tunneled to the right chest pocket. Fluoroscopy was used to cut to length and this was then attached to the port which was then placed within the pocket. The port was then accessed without difficulty. It was then flushed with saline and then heparin. The subcutaneous tissues were then reapproximated using 3-0 Vicryl. The areas were then washed and dried. Skin Affix was placed over incision. The insertion point of the neck Skin Affix was placed over the incision. The patient tolerated the procedure well without complication and was taken to recovery room in stable condition. Chest x-ray is pending. Anesthesia Type mac c local Estimated Blood Loss Estimated blood loss (mL): minimal Specimens/Packing Specimens Removed DANNA Singh DO Jun 08, 2021 16:24
--- NOTE | 2021-06-08 16:26 | Discharge Inst-Simple/Standard ---
Discharge Inst-Standard Patient Instructions/Follow Up Plan of Care/Instructions/FU: 2 weeks Divya Activity as Tolerated: No Discharge Diet: Regular Diet Other Inst to Patient Follow up Appt: Make appointment for 2 week. Instructions: No lifting greater than 10 pounds. No strenuous activity. May shower in 24 hours, no tub bath or soaking. Use incentive spirometer at home as directed. No Smoking Skin/Wound Care: You have special glue over your incision that will fall off on it's own. Ice pack on 15 min and off 30 min and repeat for first 48 hours. This will decrease swelling and discomfort. Symptoms to Report: Appetite Changes, Extremity Discoloration, Numbness/Tingling, Swelling Increased, Bleeding Excessive, Eyesight Changes, Pain Increased, Urine Color Change, Constipation(Persistent), Fever over 101 degree F, Pain/Pressure in chest, Urinating Difficulty, Cough Up/Vomit Blood, Heart Beat Irreg/Pounding, Pain/Pressure in jaw, Vaginal Bleeding Increase, Cramps in feet or legs, Lightheadedness, Pain/Pressure in shoulder, Diarrhea(Persistent), Memory Changes Suddenly, Questions/Concerns, Weight gain consecutive days, Dizziness/Fainting, Nausea/Vomiting, Shortness of Breath, Weight gain over 2 pounds If questions or concerns contact your physician Or seek help at emergency department. DANNA MICHELLE DO Jun 08, 2021 16:26
[2021-06-08] MEDS ORDERED: ONDANSETRON 4 MG/2 ML (SDV) Z0FRAN IVP PRN (16:30)
[2021-06-08] MEDS ORDERED: HYDROmorphone 2 MG/ML VIAL (DILAUDID) IV ONE (16:30)
--- NOTE | 2021-06-08 16:47 | Diagnostic Imaging Report ---
Clinical indication: Recovery status post port placement. Patient with left lung mass. Exam: Portable chest x-ray upright view. Comparison: Chest x-ray dated 05/14/2021. Findings: There is interval decreased size of a small area of consolidation involving the left upper lobe. Stable atelectasis or scarring in the peripheral left lung base. The remainder of the lungs are clear. Pulmonary vasculature and cardiac silhouette are within normal limits. There is interval placement of [id number]-Nnqh along the right chest with tip in the distal superior vena cava region. There is scoliosis of the spine. Impression: 1: Interval decreased size of the left upper lobe consolidation which correlates to patient's known mass. 2: Stable atelectasis or scarring in the peripheral left lung base. The remainder of the lungs are clear. 3: Interval placement of Eornse-q-Pdst overlying the right chest in good position. Dictated by: Dictated on workstation # [id number]
--- NOTE | 2021-06-08 17:13 | Diagnostic Imaging Report ---
INDICATION: Port-A-Cath placement. EXAMINATION: Single frontal view was obtained in surgery, 24.7 seconds of fluoroscopy time was used. Single view demonstrates Port-A-Cath over the right chest with catheter in the right internal jugular vein with catheter tip overlying the low SVC. The study is otherwise limited. IMPRESSION: Limited intraoperative fluoroscopy view demonstrates Port-A-Cath in place, as above. Dictated by: Dictated on workstation # [id number]
--- NOTE | 2021-06-08 17:23 | Anesthesia-General Post-Op ---
MAC Patient Condition Mental Status/LOC: Same as Preop Cardiovascular: Satisfactory Nausea/Vomiting: Absent Respiratory: Satisfactory Pain: Controlled Complications: Absent Post Op Complications Complications None Follow Up Care/Instructions Patient Instructions None needed. Anesthesiology Discharge Order Discharge Order Patient is doing well, no complaints, stable vital signs, no apparent adverse anesthesia problems. No complications reported per nursing. MINH MCNAIR CRNA Jun 08, 2021 17:23
== END 2021-06-08 17:25 | disposition home or self-care (01) ==
LOC: SDC 13:01
PROVIDERS: ATTEND Surgery
DX: C34.12 Malignant neoplasm of upper lobe, left bronchus or lung (principal); C79.51 Secondary malignant neoplasm of bone; F17.210 Nicotine dependence, cigarettes, uncomplicated; I10 Essential (primary) hypertension; E78.00 Pure hypercholesterolemia, unspecified; E03.9 Hypothyroidism, unspecified; M19.049 Primary osteoarthritis, unspecified hand; Z79.899 Other long term (current) drug therapy; Z79.890 Hormone replacement therapy; Z86.73 Personal history of transient ischemic attack (TIA), and cerebral infarction without residual deficits; Z88.5 Allergy status to narcotic agent
CPT/HCPCS: 36561; 71045; 76000; 87081; C1788

== ENCOUNTER 2021-07-03 15:22 | Outpatient (RCR) | payer OTHER ==
[2021-06-05 16:20] LABS: BASOPHILS # (AUTO) 0.1 10^3/uL (0.0-0.1); BASOPHILS % (AUTO) 1 % (0-10); EOSINOPHILS # (AUTO) 0.7 10^3/uL (0.0-0.3); EOSINOPHILS % (AUTO) 9 % (0-10); HEMATOCRIT 47 % (35-52); HEMOGLOBIN 14.9 g/dL (11.5-16.0); LYMPHOCYTES # (AUTO) 2.6 10^3/uL (1.0-4.0); LYMPHOCYTES % (AUTO) 31 % (12-44); MEAN CORPUSCULAR HEMOGLOBIN 29 pg (25-34); MEAN CORPUSCULAR HGB CONC 32 g/dL (32-36); MEAN CORPUSCULAR VOLUME 90 fL (80-99); MEAN PLATELET VOLUME 8.9 fL (9.0-12.2); MONOCYTES # (AUTO) 0.4 10^3/uL (0.0-1.0); MONOCYTES % (AUTO) 5 % (0-12); NEUTROPHILS # (AUTO) 4.6 10^3/uL (1.8-7.8); NEUTROPHILS % (AUTO) 55 % (42-75); PLATELET COUNT 291 10^3/uL (130-400); WHITE BLOOD COUNT 8.4 10^3/uL (4.3-11.0)
[2021-06-05 16:45] LABS: ALBUMIN 3.9 GM/DL (3.2-4.5); BILIRUBIN,TOTAL 0.3 MG/DL (0.1-1.0); CALCIUM 9.6 MG/DL (8.5-10.1); CREATININE SERUM 0.93 MG/DL (0.60-1.30); POTASSIUM 4.1 MMOL/L (3.6-5.0); TOTAL PROTEIN 7.2 GM/DL (6.4-8.2)
[2021-06-19 12:43] LABS: BASOPHILS % (AUTO) 0 % (0-10); EOSINOPHILS % (AUTO) 0 % (0-10); HEMATOCRIT 42 % (35-52); HEMOGLOBIN 13.6 g/dL (11.5-16.0); LYMPHOCYTES # (AUTO) 1.3 10^3/uL (1.0-4.0); LYMPHOCYTES % (AUTO) 9 % (12-44); MEAN CORPUSCULAR HEMOGLOBIN 29 pg (25-34); MEAN CORPUSCULAR HGB CONC 33 g/dL (32-36); MEAN CORPUSCULAR VOLUME 89 fL (80-99); MEAN PLATELET VOLUME 8.9 fL (9.0-12.2); MONOCYTES # (AUTO) 0.2 10^3/uL (0.0-1.0); MONOCYTES % (AUTO) 1 % (0-12); NEUTROPHILS # (AUTO) 12.9 10^3/uL (1.8-7.8); NEUTROPHILS % (AUTO) 89 % (42-75); PLATELET COUNT 308 10^3/uL (130-400); WHITE BLOOD COUNT 14.6 10^3/uL (4.3-11.0)
[2021-06-19 13:03] LABS: ALBUMIN 3.7 GM/DL (3.2-4.5); BILIRUBIN,TOTAL 0.3 MG/DL (0.1-1.0); CALCIUM 8.7 MG/DL (8.5-10.1); CREATININE SERUM 0.77 MG/DL (0.60-1.30); POTASSIUM 4.2 MMOL/L (3.6-5.0); TOTAL PROTEIN 6.6 GM/DL (6.4-8.2)
[2021-06-26 11:23] LABS: BASOPHILS % (AUTO) 1 % (0-10); EOSINOPHILS # (AUTO) 0.3 10^3/uL (0.0-0.3); EOSINOPHILS % (AUTO) 8 % (0-10); HEMATOCRIT 45 % (35-52); HEMOGLOBIN 14.3 g/dL (11.5-16.0); LYMPHOCYTES # (AUTO) 2.7 10^3/uL (1.0-4.0); LYMPHOCYTES % (AUTO) 63 % (12-44); MEAN CORPUSCULAR HEMOGLOBIN 29 pg (25-34); MEAN CORPUSCULAR HGB CONC 32 g/dL (32-36); MEAN CORPUSCULAR VOLUME 90 fL (80-99); MEAN PLATELET VOLUME 8.6 fL (9.0-12.2); MONOCYTES # (AUTO) 0.1 10^3/uL (0.0-1.0); MONOCYTES % (AUTO) 3 % (0-12); NEUTROPHILS # (AUTO) 1.1 10^3/uL (1.8-7.8); NEUTROPHILS % (AUTO) 26 % (42-75); PLATELET COUNT 157 10^3/uL (130-400); WHITE BLOOD COUNT 4.2 10^3/uL (4.3-11.0)
[2021-06-26 11:53] LABS: CALCIUM 8.7 MG/DL (8.5-10.1); CREATININE SERUM 0.82 MG/DL (0.60-1.30); POTASSIUM 3.9 MMOL/L (3.6-5.0)
[~2021-07-03] VITALS: Ht 157.5 cm; Wt 58.1 kg
[~2021-07-03 15:22] MED LIST changes: +CYANOCOBALAMIN INJ 1000 MCG/ML (CANCER CENTER) ONE; +FLU QUADRIvalent (3YOA+) 60 mcg/0.5 ml 2021-22(CANCER CTR) IM ONE; +FOSAPREPITANT (CANCER CENTER) 150 MG in NS (IVPB) CANCER CENTER ONLY 150 ML IV SCH; +NS IV 1000 ML (CANCER CTR) IV SCH; +PEMBROLIZUMAB 200 MG in NS (IVPB) CANCER CENTER 50 ML IV SCH; +PEMETREXED DISODIUM 500 MG, PEMETREXED DISODIUM 300 MG in NS (IVPB) CANCER CENTER 100 ML IV SCH
[2021-07-03 15:31] LABS: BASOPHILS % (AUTO) 0 % (0-10); EOSINOPHILS # (AUTO) 0.3 10^3/uL (0.0-0.3); EOSINOPHILS % (AUTO) 6 % (0-10); HEMATOCRIT 35 % (35-52); HEMOGLOBIN 11.6 g/dL (11.5-16.0); LYMPHOCYTES # (AUTO) 2.5 X 10^3 (1.0-4.0); LYMPHOCYTES % (AUTO) 58 % (12-44); MEAN CORPUSCULAR HEMOGLOBIN 29 pg (25-34); MEAN CORPUSCULAR HGB CONC 33 g/dL (32-36); MEAN CORPUSCULAR VOLUME 89 fL (80-99); MONOCYTES # (AUTO) 0.5 X 10^3 (0.0-1.0); MONOCYTES % (AUTO) 11 % (0-12); NEUTROPHILS % (AUTO) 24 % (42-75); PLATELET COUNT 201 10^3/uL (130-400); WHITE BLOOD COUNT 4.2 10^3/uL (4.3-11.0)
[2021-07-03 15:48] LABS: CREATININE SERUM 0.83 MG/DL (0.60-1.30); POTASSIUM 3.8 MMOL/L (3.6-5.0)
== END 2021-07-09 | disposition home or self-care (01) ==
LOC: ONC 15:22
PROVIDERS: ATTEND Internal Medicine Hematology & Oncology
DX: C34.12 Malignant neoplasm of upper lobe, left bronchus or lung (principal); Z87.891 Personal history of nicotine dependence
CPT/HCPCS: 36591; 80048; 80053; 84443; 85025; 90471; 96367; 96372; 96375; 96413; 96417; 99213; 99214

== ENCOUNTER 2021-08-05 11:08 | Emergency (ER) | payer OTHER ==
[~2021-08-05] VITALS: Ht 150 cm; Wt 53.5 kg
[~2021-08-05 11:08] MED LIST changes: -CYANOCOBALAMIN INJ 1000 MCG/ML (CANCER CENTER) ONE; -FLU QUADRIvalent (3YOA+) 60 mcg/0.5 ml 2021-22(CANCER CTR) IM ONE; -FOSAPREPITANT (CANCER CENTER) 150 MG in NS (IVPB) CANCER CENTER ONLY 150 ML IV SCH; -NS IV 1000 ML (CANCER CTR) IV SCH; -PEMBROLIZUMAB 200 MG in NS (IVPB) CANCER CENTER 50 ML IV SCH; -PEMETREXED DISODIUM 500 MG, PEMETREXED DISODIUM 300 MG in NS (IVPB) CANCER CENTER 100 ML IV SCH
--- NOTE | 2021-08-05 12:11 | ED General ---
General Chief Complaint: Dizziness/Syncope Stated Complaint: DIZZY Nursing Triage Note: Pt ambulatory to ED with . Pt states that she was in [employer] and got dizzy, she states that she thinks she dressed too warm and got too hot, states her wanted to get her checked out. Source of Information: Patient, Family Exam Limitations: No Limitations (LEVI JOHNSON STUDENT) History of Present Illness Date Seen by Provider: Aug 05, 2021 Time Seen by Provider: 11:50 Initial Comments This is a 65 YO female currently being treated for lung cancer who presents to the ED s/p dizzy episode at [employer] this morning. She says she felt weak and developed blurry vision.Pt states she was wearing multiple layers of sweaters and felt overheated. Her and son-in-law carried her outside into the cool air and helped her take her extra sweater off, after while her symptoms resolved. Denies any preceding symptoms or palpitations, but did break out in a sweat with her symptoms. Did not lose consciousness or hit her head. Pt states she feels back to her baseline now, but her wanted pt to come to the ER to be evaluated. She is currently being treated for lung cancer and last had chemotherapy on Friday. She had subsequent fatigue on Friday and Friday, but felt improved today and ate breakfast like normal this morning. No recent illness. Associated Systoms: No Chest Pain; Diaphoresis; No Fever/Chills (LEVI JOHNSON STUDENT) Allergies and Home Medications Allergies Coded Allergies: codeine (Verified Allergy, Unknown, 11/15/07) Patient Home Medication List Home Medication List Reviewed: Yes (TORIE MCKINLEY MD) Alprazolam (Alprazolam) 0.5 Mg Tablet, 0.5 MG PO BID PRN for ANXIETY, (Reported) Entered as Reported by: SAMUEL POWERS on 06/07/21 1232 Furosemide (Furosemide) 20 Mg Tablet, 20 MG PO DAILY, (Reported) Entered as Reported by: SAMUEL POWERS on 06/07/21 1232 Levothyroxine Sodium (Levothyroxine Sodium) 25 Mcg Tablet, 25 MCG PO DAILY, (Reported) Entered as Reported by: SAMUEL POWERS on 06/07/21 1232 Metoprolol Tartrate (Metoprolol Tartrate) 100 Mg Tablet, 100 MG PO BID, (Reported) Entered as Reported by: SAMUEL POWERS on 06/07/21 1232 Pravastatin Sodium (Pravastatin Sodium) 20 Mg Tablet, 20 MG PO HS, (Reported) Entered as Reported by: SAMUEL POWERS on 06/07/21 1232 Telmisartan (Telmisartan) 80 Mg Tablet, 80 MG PO DAILY, (Reported) Entered as Reported by: SAMUEL POWERS on 06/07/21 1232 Thyroid,Pork ([place] Thyroid) 30 Mg Tablet, 30 MG PO DAILY, (Reported) Entered as Reported by: SAMUEL POWERS on 06/07/21 1232 Tramadol HCl (Tramadol HCl) 50 Mg Tablet, 50-100 MG PO TID PRN for PAIN-MILD (1- 4), (Reported) Entered as Reported by: SAMUEL POWERS on 06/07/21 1232 Review of Systems Review of Systems Constitutional: No chills; weakness EENTM: blurred vision; No hearing loss Respiratory: No cough, No dyspnea on exertion Cardiovascular: No chest pain, No palpitations Gastrointestinal: No nausea, No vomiting Genitourinary: no symptoms reported Musculoskeletal: no symptoms reported Skin: no symptoms reported Psychiatric/Neurological: Denies Headache, Denies Numbness; Weakness Hematologic/Lymphatic: See HPI Immunological/Allergic: no symptoms reported (LEVI JOHNSON MED STUDENT) All Other Systems Reviewed Negative Unless Noted: Yes (Negative excepted noted.) (LEVI JOHNSON MED STUDENT) Past Mkdqwqy-Ftuaxf-Lpxgfv Hx Patient Social History Tobacco Use?: Yes Tobacco type used: Cigarettes Smoking Status: Current Everyday Smoker Substance use?: No Alcohol Use?: No (LEVI JOHNSON MED STUDENT) Immunizations Up To Date Influenza Vaccine Up-to-Date: Yes; Up-to-Date First/Initial COVID19 Vaccinat: yes Second COVID19 Vaccination Jm: October COVID19 Vaccination Date: yes COVID19 Vaccine [place] Routeman: Aisha (LEVI JOHNSON MED STUDENT) Seasonal Allergies Seasonal Allergies: No (LEVI JOHNSON MED STUDENT) Past Medical History Surgery/Hospitalization HX: Lung CA, hypothyroid, HTN, stroke Surgeries: Yes (D&C x2, ganglion cyst removed, vascular stent) Section, Vascular Surgery Respiratory: Yes (lung ca) Cardiac: Yes High Cholesterol, Hypertension Neurological: No Reproductive Disorders: No Genitourinary: No Gastrointestinal: No Musculoskeletal: No Endocrine: Yes Hypothyroidsim HEENT: No Cancer: Yes Lung Psychosocial: No Integumentary: No Blood Disorders: No (LEVI JOHNSON MED STUDENT) Physical Exam Vital Signs Vital Signs - First Documented 08/05/21 11:20 Temp 35.9 Pulse 54 Resp 16 B/P (MAP) 144/73 (96) Pulse Ox 96 O2 Delivery Room Air (TORIE MCKINLEY MD) Vital Signs Capillary Refill : Less Than 3 Seconds (LEVI JOHNSON STUDENT) Height, Weight, BMI Height: '" Weight: lbs. oz. kg; 23.00 BMI Method: General Appearance: No Apparent Distress, WD/WN Eyes: Bilateral Eye Normal Inspection, Bilateral Eye PERRL, Bilateral Eye EOMI HEENT: PERRL/EOMI; No Scleral Icterus (L), No Scleral Icterus (R) Neck: Normal Inspection, Supple Respiratory: Lungs Clear, Normal Breath Sounds, No Accessory Muscle Use, No Respiratory Distress Cardiovascular: No Edema, No Murmur, Bradycardia (borderline at 55 bpm) Gastrointestinal: Non Tender, Soft; No Guarding Extremity: Normal Inspection, Normal Range of Motion, No Calf Tenderness Neurologic/Psychiatric: Alert, Oriented x3, No Motor/Sensory Deficits, Normal Mood/Affect Skin: Normal Color, Warm/Dry (LEVI JOHNSON MED STUDENT) Progress/Results/Core Measures Suspected Sepsis SIRS Temperature: Pulse: 54 Respiratory Rate: 16 Blood Pressure 144 /73 Mean: 96 (LEVI JOHNSON MED STUDENT) Results/Orders My Orders Orders - TORIE MCKINLEY MD Ekg Tracing (08/05/21 12:13) (TORIE MCKINLEY MD) Vital Signs/I&O 08/05/21 08/05/21 11:20 12:47 Temp 35.9 35.9 Pulse 54 54 Resp 16 16 B/P (MAP) 144/73 (96) 144/73 Pulse Ox 96 96 O2 Delivery Room Air Room Air (TORIE MCKINLEY MD) Vital Signs/I&O Capillary Refill : Less Than 3 Seconds (LEVI JOHNSON MED STUDENT) Blood Pressure Mean: 96 Progress Note : Time: 12:36 Progress Note 65-year-old female presents to the emergency room by private vehicle today with her with a chief complaint of feeling lightheaded and near syncopal while at [employer]. Patient states that she was wearing a couple of sweaters while in [employer] to watch her granddaughter's program. She began to feel lightheaded and weak, her son-in-law and had to assist her from the [employer]. She s tates when she got outside and removed one of her sweater she started feeling much better. Her states that she could not really walk on her own. But once she was outside she was able to speak and knew exactly where she was. No complaints of unilateral deficits of weakness, she was not confused. She did not actually have a syncopal event. She denied palpitations or chest pain. She states she had a little backache this morning when she woke up but she attributes that to laying on her left side for the last couple of days in bed post chemo last Friday. No recent fevers, chills, productive cough. No urinary complaints no diarrhea. At the time of my evaluation she actually does not really want much intervention. I had to convince her to get an EKG. EKG shows a pretty significant sinus bradycardia rate of 49. Per review of the medical record the patient is on 100 of metoprolol twice daily. Recommendations to drink fluids, continue her home medications, return to the emergency room for any return of symptoms. She verbalized understanding. All questions are sought and answered. (TORIE MCKINLEY MD) ECG Initial ECG Impression Date: Aug 05, 2021 Initial ECG Impression Time: 12:17 Initial ECG Rate: 49 Initial ECG Rhythm: S.Sami Initial ECG Intervals: Normal Initial ECG Comparisson: Unchanged (TORIE MCKINLEY MD) Departure Impression Primary Impression: Near syncope Additional Impression: Bradycardia Disposition: 01 HOME, SELF-CARE Condition: Stable Departure-Patient Inst. Decision time for Depature: 12:38 (TORIE MCKINLEY MD) Referrals: AJ ROMO MD (PCP/Family) Primary Care Physician Patient Instructions: Vasovagal Response Add. Discharge Instructions: Drink plenty of fluids to stay well-hydrated. Continue to take your medications as prescribed. You might call Dr. Romo's office this week for a follow-up appointment reg arding your slow heart rate (50's). She may need to adjust your blood pressure medicines. Come back to the emergency room if you have any chest pain, palpitations, passing out spells, return of weakness or any other emergent concerning symptoms. Verification and Attestation of Medical Student E/M Service A medical student performed and documented this service in my presence. I reviewed and verified all information documented by the medical student and made modifications to such information, when appropriate. I personally performed the physical exam and medical decision making. Torie Mckinley, Aug 07, 2021,18:14 (TORIE MCKINLEY MD) Copy Copies To 1: AJ ROMO MD, CHRISTINE MED STUDENT Aug 05, 2021 12:11 TORIE MCKINLEY MD Aug 05, 2021 12:39
[2021-08-05 12:47] VITALS: BP 144/73
== END 2021-08-05 12:46 | disposition home or self-care (01) ==
LOC: EDUNIT# 11:08 → ER 11:11
DX: C34.90 Malignant neoplasm of unspecified part of unspecified bronchus or lung (principal); R55 Syncope and collapse; R00.1 Bradycardia, unspecified; I10 Essential (primary) hypertension; E78.00 Pure hypercholesterolemia, unspecified; E03.9 Hypothyroidism, unspecified; F17.210 Nicotine dependence, cigarettes, uncomplicated; Z86.73 Personal history of transient ischemic attack (TIA), and cerebral infarction without residual deficits; Z79.899 Other long term (current) drug therapy; Z79.890 Hormone replacement therapy
CPT/HCPCS: 93005

== ENCOUNTER 2021-08-14 10:55 | Outpatient (RCR) | payer OTHER ==
[2021-07-10 11:33] LABS: BASOPHILS % (AUTO) 1 % (0-10); EOSINOPHILS % (AUTO) 0 % (0-10); HEMATOCRIT 41 % (35-52); HEMOGLOBIN 13.5 g/dL (11.5-16.0); LYMPHOCYTES # (AUTO) 2.1 10^3/uL (1.0-4.0); LYMPHOCYTES % (AUTO) 24 % (12-44); MEAN CORPUSCULAR HEMOGLOBIN 29 pg (25-34); MEAN CORPUSCULAR HGB CONC 33 g/dL (32-36); MEAN CORPUSCULAR VOLUME 88 fL (80-99); MEAN PLATELET VOLUME 8.4 fL (9.0-12.2); MONOCYTES # (AUTO) 0.5 10^3/uL (0.0-1.0); MONOCYTES % (AUTO) 6 % (0-12); NEUTROPHILS # (AUTO) 6.1 10^3/uL (1.8-7.8); NEUTROPHILS % (AUTO) 69 % (42-75); PLATELET COUNT 658 10^3/uL (130-400); WHITE BLOOD COUNT 8.8 10^3/uL (4.3-11.0)
[2021-07-10 12:16] LABS: BILIRUBIN,TOTAL 0.2 MG/DL (0.1-1.0); CALCIUM 9.7 MG/DL (8.5-10.1); CREATININE SERUM 0.82 MG/DL (0.60-1.30); POTASSIUM 4.4 MMOL/L (3.6-5.0); TOTAL PROTEIN 7.8 GM/DL (6.4-8.2)
[2021-07-10 12:29] LABS: MAGNESIUM 2.2 MG/DL (1.6-2.4)
[2021-07-17 11:15] LABS: BASOPHILS % (AUTO) 1 % (0-10); EOSINOPHILS # (AUTO) 0.1 10^3/uL (0.0-0.3); EOSINOPHILS % (AUTO) 2 % (0-10); HEMATOCRIT 40 % (35-52); HEMOGLOBIN 13.1 g/dL (11.5-16.0); LYMPHOCYTES % (AUTO) 63 % (12-44); MEAN CORPUSCULAR HEMOGLOBIN 29 pg (25-34); MEAN CORPUSCULAR HGB CONC 33 g/dL (32-36); MEAN CORPUSCULAR VOLUME 89 fL (80-99); MEAN PLATELET VOLUME 8.4 fL (9.0-12.2); MONOCYTES # (AUTO) 0.2 10^3/uL (0.0-1.0); MONOCYTES % (AUTO) 5 % (0-12); NEUTROPHILS # (AUTO) 1.4 10^3/uL (1.8-7.8); NEUTROPHILS % (AUTO) 29 % (42-75); PLATELET COUNT 185 10^3/uL (130-400); WHITE BLOOD COUNT 4.8 10^3/uL (4.3-11.0)
[2021-07-17 11:31] LABS: CALCIUM 8.6 MG/DL (8.5-10.1); CREATININE SERUM 0.81 MG/DL (0.60-1.30); POTASSIUM 3.7 MMOL/L (3.6-5.0)
[2021-07-24 14:44] LABS: BASOPHILS % (AUTO) 0 % (0-10); MONOCYTES # (AUTO) 0.4 10^3/uL (0.0-1.0)
[2021-07-24 14:46] LABS: EOSINOPHILS # (AUTO) 0.2 10^3/uL (0.0-0.3); EOSINOPHILS % (AUTO) 6 % (0-10); HEMATOCRIT 36 % (35-52); HEMOGLOBIN 11.9 g/dL (11.5-16.0); LYMPHOCYTES # (AUTO) 1.9 10^3/uL (1.0-4.0); LYMPHOCYTES % (AUTO) 49 % (12-44); MEAN CORPUSCULAR HEMOGLOBIN 29 pg (25-34); MEAN CORPUSCULAR HGB CONC 33 g/dL (32-36); MEAN CORPUSCULAR VOLUME 88 fL (80-99); MEAN PLATELET VOLUME 9.3 fL (9.0-12.2); MONOCYTES % (AUTO) 11 % (0-12); NEUTROPHILS # (AUTO) 1.4 10^3/uL (1.8-7.8); NEUTROPHILS % (AUTO) 34 % (42-75); PLATELET COUNT 127 10^3/uL (130-400)
[2021-07-24 15:02] LABS: CALCIUM 8.9 MG/DL (8.5-10.1); CREATININE SERUM 0.88 MG/DL (0.60-1.30); POTASSIUM 3.4 MMOL/L (3.6-5.0)
[2021-08-01 10:24] LABS: BASOPHILS % (AUTO) 0 % (0-10); EOSINOPHILS % (AUTO) 0 % (0-10); HEMATOCRIT 37 % (35-52); HEMOGLOBIN 12.1 g/dL (11.5-16.0); LYMPHOCYTES # (AUTO) 1.6 10^3/uL (1.0-4.0); LYMPHOCYTES % (AUTO) 25 % (12-44); MEAN CORPUSCULAR HEMOGLOBIN 29 pg (25-34); MEAN CORPUSCULAR HGB CONC 33 g/dL (32-36); MEAN CORPUSCULAR VOLUME 88 fL (80-99); MEAN PLATELET VOLUME 8.4 fL (9.0-12.2); MONOCYTES # (AUTO) 0.4 10^3/uL (0.0-1.0); MONOCYTES % (AUTO) 6 % (0-12); NEUTROPHILS # (AUTO) 4.5 10^3/uL (1.8-7.8); NEUTROPHILS % (AUTO) 68 % (42-75); PLATELET COUNT 443 10^3/uL (130-400); WHITE BLOOD COUNT 6.5 10^3/uL (4.3-11.0)
[2021-08-01 11:11] LABS: ALBUMIN 3.9 GM/DL (3.2-4.5); BILIRUBIN,TOTAL 0.3 MG/DL (0.1-1.0); CALCIUM 9.4 MG/DL (8.5-10.1); CREATININE SERUM 0.84 MG/DL (0.60-1.30); MAGNESIUM 2.1 MG/DL (1.6-2.4); POTASSIUM 4.1 MMOL/L (3.6-5.0); TOTAL PROTEIN 7.2 GM/DL (6.4-8.2)
[2021-08-07 11:33] LABS: BASOPHILS % (AUTO) 0 % (0-10); EOSINOPHILS # (AUTO) 0.1 10^3/uL (0.0-0.3); EOSINOPHILS % (AUTO) 1 % (0-10); HEMATOCRIT 39 % (35-52); HEMOGLOBIN 12.5 g/dL (11.5-16.0); LYMPHOCYTES # (AUTO) 1.8 10^3/uL (1.0-4.0); LYMPHOCYTES % (AUTO) 31 % (12-44); MEAN CORPUSCULAR HEMOGLOBIN 29 pg (25-34); MEAN CORPUSCULAR HGB CONC 32 g/dL (32-36); MEAN CORPUSCULAR VOLUME 90 fL (80-99); MEAN PLATELET VOLUME 8.3 fL (9.0-12.2); MONOCYTES # (AUTO) 0.2 10^3/uL (0.0-1.0); MONOCYTES % (AUTO) 3 % (0-12); NEUTROPHILS # (AUTO) 3.7 10^3/uL (1.8-7.8); NEUTROPHILS % (AUTO) 65 % (42-75); PLATELET COUNT 165 10^3/uL (130-400); WHITE BLOOD COUNT 5.7 10^3/uL (4.3-11.0)
[2021-08-07 11:57] LABS: CALCIUM 8.7 MG/DL (8.5-10.1); CREATININE SERUM 0.94 MG/DL (0.60-1.30); POTASSIUM 3.9 MMOL/L (3.6-5.0)
[~2021-08-14 10:55] MED LIST changes: +CYANOCOBALAMIN INJ 1000 MCG/ML (CANCER CENTER) ONE; +FOSAPREPITANT (CANCER CENTER) 150 MG in NS (IVPB) CANCER CENTER ONLY 150 ML IV SCH; +NS IV 1000 ML (CANCER CTR) IV SCH; +PEMBROLIZUMAB 200 MG in NS (IVPB) CANCER CENTER 50 ML IV SCH; +PEMETREXED DISODIUM 500 MG, PEMETREXED DISODIUM 300 MG in NS (IVPB) CANCER CENTER 100 ML IV SCH
[2021-08-14 11:20] LABS: BASOPHILS % (AUTO) 0 % (0-10); EOSINOPHILS # (AUTO) 0.1 10^3/uL (0.0-0.3); EOSINOPHILS % (AUTO) 2 % (0-10); HEMATOCRIT 32 % (35-52); HEMOGLOBIN 10.3 g/dL (11.5-16.0); LYMPHOCYTES # (AUTO) 2.3 10^3/uL (1.0-4.0); LYMPHOCYTES % (AUTO) 70 % (12-44); MEAN CORPUSCULAR HEMOGLOBIN 29 pg (25-34); MEAN CORPUSCULAR HGB CONC 32 g/dL (32-36); MEAN CORPUSCULAR VOLUME 90 fL (80-99); MEAN PLATELET VOLUME 9.6 fL (9.0-12.2); MONOCYTES # (AUTO) 0.3 10^3/uL (0.0-1.0); MONOCYTES % (AUTO) 8 % (0-12); NEUTROPHILS # (AUTO) 0.7 10^3/uL (1.8-7.8); NEUTROPHILS % (AUTO) 21 % (42-75); PLATELET COUNT 61 10^3/uL (130-400); WHITE BLOOD COUNT 3.3 10^3/uL (4.3-11.0)
[2021-08-14 11:41] LABS: CALCIUM 9.2 MG/DL (8.5-10.1); CREATININE SERUM 0.94 MG/DL (0.60-1.30); POTASSIUM 4.3 MMOL/L (3.6-5.0)
== END 2021-08-17 | disposition home or self-care (01) ==
LOC: ONC 10:55
PROVIDERS: ATTEND Internal Medicine Hematology & Oncology
DX: Z51.11 Encounter for antineoplastic chemotherapy (principal); Z45.2 Encounter for adjustment and management of vascular access device; C34.12 Malignant neoplasm of upper lobe, left bronchus or lung; C79.51 Secondary malignant neoplasm of bone; Z79.899 Other long term (current) drug therapy
CPT/HCPCS: 80053; 83735; 84443; 85025; 96367; 96375; 96411; 96413; 96417; G0463; 36591; 80048

== ENCOUNTER 2021-08-28 09:54 | Outpatient (RCR) | payer OTHER ==
[2021-08-21 11:25] LABS: BASOPHILS % (AUTO) 1 % (0-10); EOSINOPHILS # (AUTO) 0.1 10^3/uL (0.0-0.3); EOSINOPHILS % (AUTO) 2 % (0-10); HEMATOCRIT 34 % (35-52); LYMPHOCYTES # (AUTO) 2.7 10^3/uL (1.0-4.0); LYMPHOCYTES % (AUTO) 55 % (12-44); MEAN CORPUSCULAR HEMOGLOBIN 30 pg (25-34); MEAN CORPUSCULAR HGB CONC 32 g/dL (32-36); MEAN CORPUSCULAR VOLUME 92 fL (80-99); MEAN PLATELET VOLUME 8.3 fL (9.0-12.2); MONOCYTES # (AUTO) 0.7 10^3/uL (0.0-1.0); MONOCYTES % (AUTO) 15 % (0-12); NEUTROPHILS # (AUTO) 1.3 10^3/uL (1.8-7.8); NEUTROPHILS % (AUTO) 26 % (42-75); PLATELET COUNT 422 10^3/uL (130-400); WHITE BLOOD COUNT 4.9 10^3/uL (4.3-11.0)
[2021-08-21 11:57] LABS: CALCIUM 9.5 MG/DL (8.5-10.1); CREATININE SERUM 0.85 MG/DL (0.60-1.30)
[~2021-08-28 09:54] MED LIST changes: -CYANOCOBALAMIN INJ 1000 MCG/ML (CANCER CENTER) ONE
[2021-08-28 10:18] LABS: BASOPHILS % (AUTO) 0 % (0-10); EOSINOPHILS % (AUTO) 0 % (0-10); HEMATOCRIT 34 % (35-52); LYMPHOCYTES # (AUTO) 1.3 10^3/uL (1.0-4.0); LYMPHOCYTES % (AUTO) 13 % (12-44); MEAN CORPUSCULAR HEMOGLOBIN 30 pg (25-34); MEAN CORPUSCULAR HGB CONC 32 g/dL (32-36); MEAN CORPUSCULAR VOLUME 93 fL (80-99); MEAN PLATELET VOLUME 8.4 fL (9.0-12.2); MONOCYTES # (AUTO) 0.3 10^3/uL (0.0-1.0); MONOCYTES % (AUTO) 3 % (0-12); NEUTROPHILS # (AUTO) 8.2 10^3/uL (1.8-7.8); NEUTROPHILS % (AUTO) 82 % (42-75); PLATELET COUNT 378 10^3/uL (130-400); WHITE BLOOD COUNT 9.9 10^3/uL (4.3-11.0)
[2021-08-28 10:36] LABS: ALBUMIN 4.1 GM/DL (3.2-4.5); BILIRUBIN,TOTAL 0.3 MG/DL (0.1-1.0); CALCIUM 9.5 MG/DL (8.5-10.1); CREATININE SERUM 0.87 MG/DL (0.60-1.30); MAGNESIUM 1.9 MG/DL (1.6-2.4); POTASSIUM 3.9 MMOL/L (3.6-5.0); TOTAL PROTEIN 7.6 GM/DL (6.4-8.2)
== END 2021-09-17 | disposition home or self-care (01) ==
LOC: ONC 09:54
PROVIDERS: ATTEND Internal Medicine Hematology & Oncology
DX: Z51.11 Encounter for antineoplastic chemotherapy (principal); Z45.2 Encounter for adjustment and management of vascular access device; C34.12 Malignant neoplasm of upper lobe, left bronchus or lung; C79.51 Secondary malignant neoplasm of bone; B00.9 Herpesviral infection, unspecified; B37.0 Candidal stomatitis
CPT/HCPCS: 36591; 80048; 80053; 83735; 84443; 85025; 96367; 96375; 96411; 96413; 96417

== ENCOUNTER → 2021-09-11 | Outpatient (CLI) | payer OTHER ==
[~2021-09-11] MED LIST changes: -FOSAPREPITANT (CANCER CENTER) 150 MG in NS (IVPB) CANCER CENTER ONLY 150 ML IV SCH; -NS IV 1000 ML (CANCER CTR) IV SCH; -PEMBROLIZUMAB 200 MG in NS (IVPB) CANCER CENTER 50 ML IV SCH; -PEMETREXED DISODIUM 500 MG, PEMETREXED DISODIUM 300 MG in NS (IVPB) CANCER CENTER 100 ML IV SCH
--- NOTE | 2021-09-11 16:08 | Diagnostic Imaging Report ---
INDICATION: Lung cancer with bone metastases. TECHNIQUE: Patient was administered 23.9 mCi technetium 99m MDP intravenously and whole body imaging was performed after three-hour delay. COMPARISON: No prior bone scans are available for comparison. FINDINGS: There is normal uptake of activity by the axial and appendicular skeleton. There is uptake by the kidneys with excretion into the urinary bladder. Uptake in the left antecubital fossa is likely injection site. There are several small foci of activity overlying the soft tissues of the left upper extremity which could represent contamination. No suspicious uptake is identified to suggest osseous metastatic disease. IMPRESSION: No scintigraphic evidence of osseous metastatic disease. Dictated by: Dictated on workstation # [id number]
== END ==
LOC: CARD 12:00
PROVIDERS: ATTEND Nurse Practitioner Adult Health
DX: Z51.11 Encounter for antineoplastic chemotherapy (principal); C34.90 Malignant neoplasm of unspecified part of unspecified bronchus or lung; C79.51 Secondary malignant neoplasm of bone
CPT/HCPCS: 78306; A9503

== ENCOUNTER → 2021-12-10 | Outpatient (CLI) | payer OTHER ==
--- NOTE | 2021-12-10 15:37 | Diagnostic Imaging Report ---
INDICATION: Left lung neoplasm. TECHNIQUE: The patient was administered 24.9 mCi of technetium 99m MDP intravenously and whole-body imaging was performed after a 3 hour delay. COMPARISON: Correlation is made to the prior bone scan from 09/11/2021. FINDINGS: There is normal uptake of activity by the axial and appendicular skeleton. There is uptake by the kidneys with excretion into the urinary bladder. A small focus of uptake in the mid thoracic spine is noted, stable and likely degenerative. No suspicious foci are detected. IMPRESSION: Continued unremarkable whole body bone scan. There is no scintigraphic evidence of osseous metastatic disease. Dictated by: Dictated on workstation # [id number]
== END ==
LOC: CARD 12:00
PROVIDERS: ATTEND Internal Medicine Hematology & Oncology
DX: C34.12 Malignant neoplasm of upper lobe, left bronchus or lung (principal)
CPT/HCPCS: 78306; A9503

== ENCOUNTER → 2022-02-05 | Outpatient (CLI) | payer OTHER ==
--- NOTE | 2022-02-05 16:05 | Diagnostic Imaging Report ---
INDICATION: 66-year-old asymptomatic postmenopausal female COMPARISON: None available FINDINGS: AP Spine L1-L4: [BMD (g/cm2): 0.687] [T-Score: -4.3] [Z-Score: -2.2] [BMD Previous: NA] [BMD % Change: NA] LT Hip Neck: [BMD (g/cm2): 0.570] [T-Score: -3.4] [Z-Score: -1.6] LT Hip Total: [BMD (g/cm2):0.543] [T-Score:-3.7] [Z-Score: -2.1] [BMD Previous: NA] [BMD % Change: NA] RT Hip Neck: [BMD (g/cm2):0.670] [T-Score:-2.7] [Z-Score:-0.9] RT Hip Total: [BMD (g/cm2):0.590] [T-score:-3.3] [Z-Score:-1.8] [BMD Previous:NA] [BMD % Change:NA] *Indicates significant change from prior examination based on 95% confidence level. World Health Organization criteria for BMD interpretation classify patients as Normal (T-score at or above -1.0), Osteopenic (T-score between -1.0 and -2.5) or Osteoporotic (T-score at or below -2.5). LIMITATIONS AND MODIFICATION: None. FRACTURE RISK (FRAX SCORE): Not applicable as patient meets criteria for osteoporosis. IMPRESSION: 1. Osteoporosis. 2. Baseline examination. 3. See below National Osteoporosis Foundation guidelines on when to potentially initiate pharmacologic therapy. Based on the National Osteoporosis Foundation Guidelines, pharmacologic treatment should be initiated in any of the following, unless clinical conditions suggest otherwise: * Any patient with prior fragility fracture of the hip or vertebrae. A spine fracture indicates 5X risk for subsequent spine fracture and 2X risk for subsequent hip fracture. * Osteoporosis (T-score <-2.5). * Postmenopausal women and men age 50 and older with low bone mass/osteopenia (T-score between -1.0 and -2.5) by DXA and 10-year major osteoporotic fracture greater than 20% or a 10-year probability of hip fracture greater than 3%. These fracture risks are supplied above in the FRAX score, if applicable. * Clinician judgement and/or patient preferences may indicate treatment for people with 10-year fracture probabilities above or below these levels. Dictated by: Dictated on workstation # [id number]
== END ==
LOC: RAD 09:23
PROVIDERS: ATTEND Internal Medicine Hematology & Oncology
DX: M48.56XA Collapsed vertebra, not elsewhere classified, lumbar region, initial encounter for fracture (principal); C34.12 Malignant neoplasm of upper lobe, left bronchus or lung; R29.890 Loss of height; Z78.0 Asymptomatic menopausal state
CPT/HCPCS: 77080

== ENCOUNTER → 2022-02-28 | Outpatient (CLI) | payer OTHER ==
--- NOTE | 2022-02-28 16:10 | Diagnostic Imaging Report ---
INDICATION: Lung carcinoma. Patient was administered 26.1 mCi technetium 99m MDP intravenously and whole-body imaging was performed after 3 hour delay. Correlation is made with prior whole body bone scan from 12/10/2021. Bone scan continues to be unremarkable. Normal physiologic uptake is seen. No findings to suggest osseous metastatic disease are identified. IMPRESSION: No scintigraphic evidence of osseous metastatic disease. Dictated by: Dictated on workstation # [id number]
== END ==
LOC: CARD 12:00
PROVIDERS: ATTEND Nurse Practitioner Adult Health
DX: Z51.12 Encounter for antineoplastic immunotherapy (principal); C34.12 Malignant neoplasm of upper lobe, left bronchus or lung; C79.51 Secondary malignant neoplasm of bone
CPT/HCPCS: 78306; A9503

== ENCOUNTER → 2022-05-24 | Outpatient (CLI) | payer OTHER ==
--- NOTE | 2022-05-24 16:21 | Diagnostic Imaging Report ---
INDICATION: Lung cancer. TECHNIQUE: 26 mCi of technetium 99m MDP was given. 3 hour delayed whole body imaging. COMPARISON: 02/28/2022. FINDINGS: There are two new foci of increased uptake within the thoracic spine in the region of T9 and T8 posteriorly. There is also uptake in the right maxillary region. IMPRESSION: 1. Continued uptake noted in the region of the right maxilla unchanged. 2. New foci of increased uptake noted in the midthoracic region. Recommend additional follow-up imaging with plain film or MRI of the thoracic spine. Dictated by: Dictated on workstation # [id number]
== END ==
LOC: CARD 11:26
PROVIDERS: ATTEND Internal Medicine Hematology & Oncology
DX: C34.12 Malignant neoplasm of upper lobe, left bronchus or lung (principal); C79.51 Secondary malignant neoplasm of bone; M81.0 Age-related osteoporosis without current pathological fracture
CPT/HCPCS: 78306; A9503

== ENCOUNTER → 2022-08-20 | Outpatient (CLI) | payer OTHER ==
[~2022-08-20] MED LIST changes: +CLOP-31 PO; -CLOP75TA69 PO
--- NOTE | 2022-08-20 18:35 | Diagnostic Imaging Report ---
INDICATION: Left lung carcinoma. TECHNIQUE: The patient was administered 27.0 mCi technetium 99m MDP intravenously and whole-body imaging was performed after a three-hour delay. CORRELATION is made with prior whole body bone scan from 05/24/2022. There is normal uptake of activity by the axial and appendicular skeleton. There is uptake by the kidneys with excretion to urinary bladder. Scoliotic curvature to the thoracic spine is again noted. Very mild uptake in the midthoracic spine is noted, similar to prior exam. Uptake in the region of the right maxilla is also noted, similar to prior exam. No additional foci of abnormal tracer accumulation is identified. IMPRESSION: Stable whole body bone scan when compared with exam from 05/24/2022. Dictated by: Dictated on workstation # [id number]
== END ==
LOC: CARD 10:26
PROVIDERS: ATTEND Nurse Practitioner
DX: C34.12 Malignant neoplasm of upper lobe, left bronchus or lung (principal); C79.51 Secondary malignant neoplasm of bone
CPT/HCPCS: 78306; A9503

== ENCOUNTER 2022-12-02 18:56 | Inpatient (IN) | payer OTHER, MEDICARE ==
[~2022-12-02] VITALS: Ht 149.9 cm; Wt 54.6 kg
[2022-12-02] MEDS ORDERED: CEFEPIME INJECTION 1,000 MG in NS (IVPB) 50 ML IV ONE (19:15)
[2022-12-02] MEDS ORDERED: methylPREDNISolone 125 MG (Solu-MEDROL) VIAL IV STA (19:15)
[2022-12-02] MEDS ORDERED: RT-ALBUTEROL/IPRATROPIUM 3 ML (DUONEB) VIAL INH ONE (19:15)
[2022-12-02] MEDS ORDERED: RT-ALBUTEROL SULF 2.5 MG/3 ML PRE-MIX VIAL INH STA (19:15)
--- NOTE | 2022-12-02 19:33 | ED Dyspnea ---
General Stated Complaint: RESPITORY Source of Information: Patient History of Present Illness Date Seen by Provider: Dec 02, 2022 Time Seen by Provider: 19:09 Initial Comments PT ARRIVES VIA POV FROM HOME WITH PT WITH KNOWN LUNG CANCER WITH METS TO SHOULDER BLADE, DX 05/2021 SHE HAS COMPLETED 12 WEEKS OF CHEMO, AND IS NOW ON KEYTRUDA SHE CONTINUES TO SMOKE--SHE SMOKED UP TO 2 PPD, NOW ABOUT 1/2 PPD SHE HAS NEVER HAD HOME O2, SHE HAS NEVER HAD INHALERS OR NEBULIZER. CLAIMS SHE HAS NEVER BEEN TOLD SHE HAS COPD SHE BEGAN HAVING INCREASED SHORTNESS OF BREATH SINCE WAKING THIS MORNING NO INCREASE IN COUGH NO FEVER/SWEATS/CHILLS NO CHEST PAIN NO SWELLING IN LEGS/ FEET OR PAIN IN CALVES NO NAUSEA/VOMITING SHE HAS HAD COVID VACCINE X 3 AND FLU VACCINE FOR THIS SEASON. PCP: [facility] COORDINATOR AT DR. LIND'S OFFICE--HAS NOT BEEN THERE "FOR QUITE AWHILE" ONCOLOGIST: DR. GREENBERG Allergies and Home Medications Allergies Coded Allergies: codeine (Verified Allergy, Unknown, 11/15/07) Patient Home Medication List Home Medication List Reviewed: Yes Alprazolam (Alprazolam) 0.5 Mg Tablet, 0.5 MG PO BID PRN for ANXIETY, (Reported) Entered as Reported by: SAMUEL POWERS on 06/07/21 1232 Furosemide (Furosemide) 20 Mg Tablet, 20 MG PO DAILY, (Reported) Entered as Reported by: SAMUEL POWERS on 06/07/21 1232 Levothyroxine Sodium (Levothyroxine Sodium) 25 Mcg Tablet, 25 MCG PO DAILY, (Reported) Entered as Reported by: SAMUEL POWERS on 06/07/21 1232 Metoprolol Tartrate (Metoprolol Tartrate) 100 Mg Tablet, 100 MG PO BID, (Reported) Entered as Reported by: SAMUEL POWERS on 06/07/21 1232 Pravastatin Sodium (Pravastatin Sodium) 20 Mg Tablet, 20 MG PO HS, (Reported) Entered as Reported by: SAMUEL POWERS on 06/07/21 1232 Telmisartan (Telmisartan) 80 Mg Tablet, 80 MG PO DAILY, (Reported) Entered as Reported by: SAMUEL POWERS on 06/07/21 1232 Thyroid,Pork (Gardena Thyroid) 30 Mg Tablet, 30 MG PO DAILY, (Reported) Entered as Reported by: SAMUEL POWERS on 06/07/21 1232 Tramadol HCl (Tramadol HCl) 50 Mg Tablet, 50-100 MG PO TID PRN for PAIN-MILD (1- 4), (Reported) Entered as Reported by: SAMUEL POWERS on 06/07/21 1232 Review of Systems Review of Systems Constitutional: no symptoms reported EENTM: no symptoms reported Respiratory: see HPI, short of breath Cardiovascular: no symptoms reported Gastrointestinal: no symptoms reported Genitourinary: no symptoms reported Musculoskeletal: no symptoms reported Skin: no symptoms reported Psychiatric/Neurological: No Symptoms Reported Past Keaqcuh-Glmoal-Mdehlf Hx Patient Social History Tobacco Use?: Yes Tobacco type used: Cigarettes Smoking Status: Current Everyday Smoker Immunizations Up To Date First/Initial COVID19 Vaccinat: yes Second COVID19 Vaccination Jm: October COVID19 Vaccination Date: yes Seasonal Allergies Seasonal Allergies: No Past Medical History Surgery/Hospitalization HX: Lung CA, hypothyroid, HTN, stroke Surgeries: Yes (D&C x2, ganglion cyst removed, vascular stent; PORT RIGHT CHEST) Section, Orthopedic, Vascular Surgery Respiratory: Yes (LUNG CANCER WITH METS TO SCAPULA) Cardiac: Yes High Cholesterol, Hypertension, Peripheral Vascular Neurological: No Reproductive Disorders: No Genitourinary: No Gastrointestinal: No Musculoskeletal: No Endocrine: Yes Hypothyroidsim HEENT: No Cancer: Yes Lung Did You Recieve Any Treatments: Yes What Type of Treatment Did You: Chemotherapy LUNG CANCER WITH METS TO SCAPULA DX 05/2021 COMPLETED 12 WEEKS OF CHEMO, NOW ON KEYTRUDA Psychosocial: No Integumentary: No Blood Disorders: No Family Medical History SOCIAL HISTORY: -SMOKED 2 PPD, NOW 1/2 PPD -ETOH -DRUGS Physical Exam Vital Signs Vital Signs - First Documented 12/02/22 19:00 Temp 36.4 Pulse 78 Resp 30 B/P (MAP) 197/96 (129) Pulse Ox 93 O2 Delivery Nasal Cannula O2 Flow Rate 3.00 Capillary Refill : Height, Weight, BMI Height: '" Weight: lbs. oz. kg; 23.00 BMI Method: General Appearance: Anxious, Mild Distress, Thin, Other (KYPHOSIS AND SCOLIOSIS) Neck: Normal Inspection Respiratory: Other (DYSPNEIC AND TACHYPNEIC, TALKS IN SHORT SENTENCES, VERY MINIMAL AIR MOVEMENT IN ALL LUNG CERDA) Cardiovascular: Regular Rate, Rhythm, No JVD, No Murmur Gastrointestinal: Non Tender, Soft Extremity: Normal Capillary Refill, No Calf Tenderness, Pedal Edema (TRACE TO 1+ BILATERALLY) Neurologic/Psychiatric: Alert, Oriented x3, No Motor/Sensory Deficits, harness puller II- XII Norm as Tested Skin: Normal Color, Warm/Dry Focused Exam Sepsis Stage: Ruled Out Reason for ruling out sepsis: DOES NOT MEET CRITERIA Possible Source: Pulmonary Lactate Level 12/02/22 19:25: Lactic Acid Level 1.00 Time of Focused Exam: 21:00 Respiratory: Other (STILL WITH LABORED BREATHING, BUT IS IMPROVED WITH INCREASED AERATION IN ALL LUNG CERDA, AND WITH RESIDUAL RALES/RHONCHI/WHEEZING) Cardiovascular: Regular Rate, Rhythm, No Edema Skin: normal color, warm/dry Lactic Acid Level Laboratory Tests Test 12/02/22 19:25 Lactic Acid Level 1.00 MMOL/L (0.50-2.00) Within 3hrs of presentation: Admin fluids, Admin ABX, Blood cultures prior to ABX's, Focus exam, Lactate level Progress/Results/Core Measures Results/Orders Lab Results Laboratory Tests Test 12/02/22 19:25 12/02/22 19:30 12/02/22 21:06 Range/Units White Blood Count 11.1 H 4.3-11.0 10^3/uL Red Blood Count 4.54 3.80-5.11 10^6/uL Hemoglobin 13.4 11.5-16.0 g/dL Hematocrit 41 35-52 % Mean Corpuscular Volume 89 80-99 fL Mean Corpuscular Hemoglobin 30 25-34 pg Mean Corpuscular Hemoglobin Concent 33 32-36 g/dL Red Cell Distribution Width 14.1 10.0-14.5 % Platelet Count 284 130-400 10^3/uL Mean Platelet Volume 8.6 L 9.0-12.2 fL Immature Granulocyte % (Auto) 0 % Neutrophils (%) (Auto) 74 42-75 % Lymphocytes (%) (Auto) 16 12-44 % Monocytes (%) (Auto) 5 0-12 % Eosinophils (%) (Auto) 4 0-10 % Basophils (%) (Auto) 1 0-10 % Neutrophils # (Auto) 8.2 H 1.8-7.8 10^3/uL Lymphocytes # (Auto) 1.8 1.0-4.0 10^3/uL Monocytes # (Auto) 0.6 0.0-1.0 10^3/uL Eosinophils # (Auto) 0.5 H 0.0-0.3 10^3/uL Basophils # (Auto) 0.1 0.0-0.1 10^3/uL Immature Granulocyte # (Auto) 0.0 0.0-0.1 10^3/uL Prothrombin Time 14.4 12.2-14.7 SEC INR Comment 1.1 0.8-1.4 Activated Partial Thromboplast Time 43 H 24-35 SEC Sodium Level 134 L 135-145 MMOL/L Potassium Level 4.3 3.6-5.0 MMOL/L Chloride Level 101 98-107 MMOL/L Carbon Dioxide Level 23 21-32 MMOL/L Anion Gap 10 5-14 MMOL/L Blood Urea Nitrogen 10 7-18 MG/DL Creatinine 0.98 0.60-1.30 MG/DL Estimat Glomerular Filtration Rate 64 BUN/Creatinine Ratio 10 Glucose Level 105 70-105 MG/DL Lactic Acid Level 1.00 0.50-2.00 MMOL/L Calcium Level 9.5 8.5-10.1 MG/DL Corrected Calcium 9.7 8.5-10.1 MG/DL Magnesium Level 2.1 1.6-2.4 MG/DL Total Bilirubin 0.6 0.1-1.0 MG/DL Aspartate Amino Transf (AST/SGOT) 14 5-34 U/L Alanine Aminotransferase (ALT/SGPT) 15 0-55 U/L Alkaline Phosphatase 176 H 40-136 U/L Troponin I < 0.028 <0.028 NG/ML B-Type Natriuretic Peptide 78.6 <100.0 PG/ML Total Protein 7.3 6.4-8.2 GM/DL Albumin 3.8 3.2-4.5 GM/DL Influenza Type A (RT-PCR) Not Detected Not Detecte Influenza Type B (RT-PCR) Not Detected Not Detecte SARS-CoV-2 RNA (RT-PCR) Not Detected Not Detecte Blood Gas Puncture Site LB Blood Gas Patient Temperature 36.4 Arterial Blood pH 7.34 *L 7.37-7.43 Arterial Blood Partial Pressure CO2 45 35-45 MMHG Arterial Blood Partial Pressure O2 103 H 79-93 MMHG Arterial Blood HCO3 24 23-27 MMOL/L Arterial Blood Total CO2 25.4 21.0-31.0 MMOL/L Arterial Blood Oxygen Saturation 99 94-100 % Arterial Blood Base Excess -1.1 -2.5-2.5 MMOL/L John Test YES-POS Blood Gas Ventilator Setting NO Blood Gas Inspired Oxygen 3L My Orders Orders - LUNA LEWIS DO Ed Iv/Invasive Line Start (12/02/22 19:15) Ekg Tracing (12/02/22 19:15) O2 (12/02/22:15) Monitor-Rhythm Ecg Trace Only (12/02/22:15) Chest 1 View, Ap/Pa Only (12/02/22:15) Bnp [place] (12/02/22:15) Cbc With Automated Diff (12/02/22:15) Comprehensive Metabolic Panel (12/02/22:15) Magnesium (12/02/22:15) Protime With Inr (12/02/22:15) Partial Thromboplastin Time (12/02/22:15) Troponin I [place] (12/02/22:15) Covid 19 Inhouse Test (12/02/22:15) Blood Culture (12/02/22 19:15) Sputum Culture (12/02/22 19:15) Urinalysis (12/02/22:15) Urine Culture (12/02/22:15) Ed Iv/Invasive Line Start (12/02/22:15) O2 (12/02/22:15) Remove Rings In Anticipation O (12/02/22:15) Lactic Acid Analyzer (12/02/22:15) Cefepime Injection (Maxipime Injection) (12/02/22 19:15) Influenza A And B By Pcr (12/02/22:15) Isolation Central Supply Req (12/02/22 19:15) Albuterol Pre-Mix Nebs (Rt) (Proventil (12/02/22 19:15) Albuterol/Ipra Inhalation Soln (Duoneb I (12/02/22 19:15) Dexamethasone Injection (Decadron Injec (12/02/22 19:15) Rt Request For Service (12/02/22 19:15) Methylprednisolone Sod Succ (Solu-Medrol (12/02/22 19:15) Svn Small Volume Nebulizer (12/02/22 19:15) Svn Small Volume Nebulizer (12/02/22 19:15) Arterial Blood Draw - Obtain (12/02/22 ) Lorazepam Injection (Ativan Injection) (12/02/22 20:15) Ct Angio Chest W (R/O Pe) (12/02/22 20:07) Ed Iv/Invasive Line Start (12/02/22 20:10) Ns Iv 1000 Ml (Sodium Chloride 0.9%) (12/02/22 20:15) Iohexol Injection (Omnipaque 350 Mg/Ml 1 (12/02/22 20:15) Ns (Ivpb) (Sodium Chloride 0.9% Ivpb Bag (12/02/22 20:15) Arterial Blood Gas (12/02/22 21:06) Medications Given in ED Current Medications Medications Dose Ordered Sig/Anila Route Start Time Stop Time Status Last Admin Dose Admin Albuterol/ Ipratropium 3 ml ONCE ONCE INH 12/02/22 19:15 12/02/22 19:18 DC 12/02/22 19:32 3 ML Cefepime HCl 1000 mg/Sodium Chloride 50 ml @ 100 mls/hr ONCE ONCE IV 12/02/22 19:15 12/02/22 19:44 DC 12/02/22 20:01 100 MLS/HR Dexamethasone Sodium Phosphate 20 mg ONCE ONCE IH 12/02/22 19:15 12/02/22 19:19 DC 12/02/22 19:31 20 MG Iohexol 100 ml ONCE ONCE IV 12/02/22 20:15 12/02/22 20:16 DC 12/02/22 20:31 65 ML Lorazepam 1 mg ONCE ONCE IVP 12/02/22 20:15 12/02/22 20:16 DC 12/02/22 20:47 1 MG Sodium Chloride 100 ml ONCE ONCE IV 12/02/22 20:15 12/02/22 20:16 DC 12/02/22 20:31 64 ML Vital Signs/I&O 12/02/22 12/02/22 12/02/22 12/02/22 19:00 19:02 19:48 21:00 Temp 36.4 Pulse 78 Resp 30 B/P (MAP) 197/96 (129) Pulse Ox 93 93 95 O2 Delivery Nasal Cannula Nasal Cannula Nasal Cannula Nasal Cannula O2 Flow Rate 3.00 3.00 3.00 3.00 12/02/22 21:52 Pulse 101 Resp 22 B/P (MAP) 139/77 Pulse Ox 93 O2 Delivery Nasal Cannula O2 Flow Rate 3.00 12/03/22 00:00 Intake Total 1050 ml Balance 1050 ml Progress Progress Note : Progress Note PPE WORN COVID AND FLU TESTING DONE SEPSIS LABS ORDERED O2 SAT 83% ON ROOM AIR ON ARRIVAL, PLACED ON O2 AT 3L/NC AND O2 SATS UP TO 95% PT DYSPNEIC AND TACHYPNEIC WITH RESPIRATORY RATE IN THE MID 40'S ON ARRIVAL, AND WITH O2 HR IN 70'S AFEBRILE. BP 197/96 ON ARRIVAL GIVEN: -IV FLUIDS -CEFEPIME -SOLU-MEDROL -ATIVAN -NEB TREATMENTS PT HAD INCREASED ANXIETY AND CONTINUOUS COMPLAINING ABOUT NEB TREATMENT--DID NOT LIKE MASK, DID NOT LIKE HER NOSE RUNNING, DID NOT LIKE THE TASTE OR SMELL OF THE MEDICATION, ETC. AND STATING SHE JUST WANTS TO GO HOME, REPEATEDLY. MUCH COAXING AND REASSURANCE GIVEN TO PT BY RT STAFF, RN, AND MYSELF. ATIVAN ORDERED FOR ANXIETY. ANXIETY IMPROVED WITH ATIVAN O2 SATS REMAINED IN THE 90'S. BP DOWN PT CALMED. HR REMAINED IN THE 70'S. NO FEVER NO COUGH DURING ER STAY NO DETERIORATION IN PT'S CONDITION DURING ER STAY DISCUSSED TEST RESULTS, NEED FOR ADMIT AND PT AGREES. ALSO REVIEWED INCIDENTAL, NON-URGENT FINDINGS NOTED ON CT SCAN, INCLUDING AORTIC ANEURYSM. DISCUSSED CODE STATUS AND PT WISHES TO BE A FULL CODE AND IS AGREEABLE TO VENTILATOR IF NECESSARY. REVIEWED PRIOR RECORDS, ER VISITS, ADMITS/H&P'S/CONSULTS/DISCHARGE SUMMARIES AND TESTS/PROCEDURES. Initial ECG Impression Date: Dec 02, 2022 Initial ECG Impression Time: 19:36 Initial ECG Rate: 77 Initial ECG Rhythm: Normal Sinus Initial ECG Intervals MS 133 QRS 111 QT/QTC 377/427 Initial ECG Comparisson: Unchanged (UNCHANGED FROM 08/05/2021) Comment ST DEPRESSION AND T WAVE INVERSION LATERAL LEADS. INTERPRETED BY ME Diagnostic Imaging Comments CXR-- PER RADIOLOGIST REPORT AT 1938 FINDINGS: Lung volumes are large. There is mild scarring in the left midlung, significantly improved compared to May 2021. The left lung appears somewhat lucent. No new consolidation is seen. There is no pleural effusion or pneumothorax. Cardiac silhouette is normal in size. Right-sided Port-A-Cath tip projects over the SVC. There is marked right convex curvature of the thoracic spine. IMPRESSION: 1. Scarring in the left midlung. No acute pulmonary abnormality is seen. CT ANGIOGRAM CHEST--PER RADIOLOGIST REPORT AT 2047 CTA CHEST: Thin axial sections through the chest are obtained following intravenous contrast bolus. Multiplanar MIP images were reconstructed and reviewed There is some scarring in the left upper lobe. There are emphysematous changes present in the lungs. There are no pulmonary emboli. There is no right ventricular strain. There is no hilar or mediastinal lymphadenopathy. There is an abdominal aortic aneurysm measuring 3.4 cm in diameter. There are low density masses in both adrenal glands. On the right, this measures 3 cm in diameter and on the left 2 cm in diameter. IMPRESSION: 1. COPD. 2. Bilateral adrenal masses. These are low density and are probably adenomas or myelolipomas. 3. There is an abdominal aortic aneurysm. No evidence for pulmonary embolism. Reviewed: Reviewed by Ak Departure Communication (Admissions) [id number]--SPOKE WITH DR. LIND, ACCEPTS PT FOR ADMIT 2112--CALLED E-ICU, PHYSICIAN ON ANOTHER CALL, WILL CALL BACK [id number]--SPOKE WITH DR. DAWSON, E-ICU PHYSICIAN, REPORT GIVEN Impression Primary Impression: Acute respiratory failure Additional Impressions: Lung cancer Heavy smoker (more than 20 cigarettes per day) HTN (hypertension) Disposition: ADMITTED INPATIENT Condition: Improved Admissions Decision to Admit Reason: Admit from ER (General) Decision to Admit/Date: Dec 02, 2022 Time/Decision to Admit Time: 21:10 Departure-Patient Inst. Referrals: AJ LIND MD (PCP/Family) Primary Care Physician LUNA LEWIS DO Dec 02, 2022 19:32
--- NOTE | 2022-12-02 19:36 | Diagnostic Imaging Report ---
HISTORY: Dyspnea, hypoxia, lung cancer TECHNIQUE: Frontal view of the chest COMPARISON: 06/08/2021 FINDINGS: Lung volumes are large. There is mild scarring in the left midlung, significantly improved compared to May 2021. The left lung appears somewhat lucent. No new consolidation is seen. There is no pleural effusion or pneumothorax. Cardiac silhouette is normal in size. Right-sided Port-A-Cath tip projects over the SVC. There is marked right convex curvature of the thoracic spine. IMPRESSION: 1. Scarring in the left midlung. No acute pulmonary abnormality is seen. Dictated by: Dictated on workstation # [id number]
[2022-12-02 19:39] LABS: BASOPHILS # (AUTO) 0.1 10^3/uL (0.0-0.1); BASOPHILS % (AUTO) 1 % (0-10); EOSINOPHILS # (AUTO) 0.5 10^3/uL (0.0-0.3); EOSINOPHILS % (AUTO) 4 % (0-10); HEMATOCRIT 41 % (35-52); HEMOGLOBIN 13.4 g/dL (11.5-16.0); LYMPHOCYTES # (AUTO) 1.8 10^3/uL (1.0-4.0); LYMPHOCYTES % (AUTO) 16 % (12-44); MEAN CORPUSCULAR HEMOGLOBIN 30 pg (25-34); MEAN CORPUSCULAR HGB CONC 33 g/dL (32-36); MEAN CORPUSCULAR VOLUME 89 fL (80-99); MEAN PLATELET VOLUME 8.6 fL (9.0-12.2); MONOCYTES # (AUTO) 0.6 10^3/uL (0.0-1.0); MONOCYTES % (AUTO) 5 % (0-12); NEUTROPHILS # (AUTO) 8.2 10^3/uL (1.8-7.8); NEUTROPHILS % (AUTO) 74 % (42-75); PLATELET COUNT 284 10^3/uL (130-400); WHITE BLOOD COUNT 11.1 10^3/uL (4.3-11.0)
[2022-12-02 19:48] LABS: ALBUMIN 3.8 GM/DL (3.2-4.5); CHLORIDE 101 MMOL/L (98-107); POTASSIUM 4.3 MMOL/L (3.6-5.0); SODIUM 134 MMOL/L (135-145)
[2022-12-02 19:50] LABS: CALCIUM 9.5 MG/DL (8.5-10.1)
[2022-12-02 19:51] LABS: GLUCOSE 105 MG/DL (70-105); TOTAL PROTEIN 7.3 GM/DL (6.4-8.2)
[2022-12-02 19:52] LABS: CARBON DIOXIDE 23 MMOL/L (21-32)
[2022-12-02 19:53] LABS: BILIRUBIN,TOTAL 0.6 MG/DL (0.1-1.0)
[2022-12-02 19:54] LABS: ALKALINE PHOSPHATASE 176 U/L (40-136); CREATININE SERUM 0.98 MG/DL (0.60-1.30); GFR ESTIMATED 64
[2022-12-02 19:55] LABS: BUN/CREATININE RATIO 10
[2022-12-02 19:57] LABS: ALANINE AMINOTRANSFERASE 15 U/L (0-55)
[2022-12-02 19:58] LABS: MAGNESIUM 2.1 MG/DL (1.6-2.4)
[2022-12-02 20:01] LABS: INR 1.1 (0.8-1.4); PROTHROMBIN TIME PATIENT 14.4 SEC (12.2-14.7)
[2022-12-02] MEDS ORDERED: IOHEXOL 350 MG/ML 100 ML (OMNIPAQUE 350) VIAL IV ONE (20:15)
[2022-12-02] MEDS ORDERED: NS IV 1000 ML 1,000 ML IV SCH (20:15)
[2022-12-02] MEDS ORDERED: NS 100 ML (IVPB) BAG IV ONE (20:15)
[2022-12-02] MEDS ORDERED: LORazepam INJ 2 MG/ML (ATIVAN) VIAL IVP ONE (20:15)
--- NOTE | 2022-12-02 20:46 | Diagnostic Imaging Report ---
INDICATION: Hypoxemia. CTA CHEST: Thin axial sections through the chest are obtained following intravenous contrast bolus. Multiplanar MIP images were reconstructed and reviewed There is some scarring in the left upper lobe. There are emphysematous changes present in the lungs. There are no pulmonary emboli. There is no right ventricular strain. There is no hilar or mediastinal lymphadenopathy. There is an abdominal aortic aneurysm measuring 3.4 cm in diameter. There are low density masses in both adrenal glands. On the right, this measures 3 cm in diameter and on the left 2 cm in diameter. IMPRESSION: 1. COPD. 2. Bilateral adrenal masses. These are low density and are probably adenomas or myelolipomas. 3. There is an abdominal aortic aneurysm. No evidence for pulmonary embolism. Dictated by: Dictated on workstation # [id number]
[2022-12-02 21:18] LABS: ABG BASE EXCESS -1.1 MMOL/L (-2.5-2.5); ABG OXYGEN SATURATION 99 % (94-100); ABG PCO2 45 MMHG (35-45); ABG PO2 103 MMHG (79-93); ABG TCO2 25.4 MMOL/L (21.0-31.0)
[2022-12-02 21:19] LABS: ALLENS TEST YES-POS; INSPIRED O2 3L; PATIENT TEMP 36.4; VENTILATOR NO
[2022-12-02 21:20] LABS: ABG PH 7.34 (7.37-7.43)
[2022-12-02] MEDS ORDERED: NS IV 500 ML 500 ML IV PRN (22:15)
[2022-12-02] MEDS ORDERED: CATHETER FLUSH 10 ML SYR IVP PRN (22:15)
[2022-12-02] MEDS ORDERED: LORazepam INJ 2 MG/ML (ATIVAN) VIAL IV PRN (22:15)
[2022-12-02 22:16] LABS: BILIRUBIN,URINE NEGATIVE (NEGATIVE); CLARITY,URINE CLEAR; COLOR,URINE YELLOW; GLUCOSE, URINE (UA) NEGATIVE (NEGATIVE); KETONES,URINE NEGATIVE (NEGATIVE); LEUKOCYTE ESTERASE ,URINE TRACE (NEGATIVE); NITRITE,URINE NEGATIVE (NEGATIVE); PROTEIN,URINE NEGATIVE (NEGATIVE)
[2022-12-02 22:28] LABS: BACTERIA,URINE TRACE /HPF
[2022-12-02] MEDS ORDERED: EPINEPHrine 1 MG INJECTION 4 MG in NS (IVPB) 248 ML IV SCH (22:30)
[2022-12-02] MEDS ORDERED: NOREPINEPHRINE 8 MG/250 ML 250 ML IV SCH (22:30)
[2022-12-02] MEDS: LACTATED RINGERS 1,000 ML IV SCH ×2 (22:39→22:40)
--- NOTE | 2022-12-02 23:47 | Tele-ICU Progress Note ---
Progress Note 67F with h/o lung ca s/p 12 weeks chemo now on maintenance Keytruda, onoing smoker admitted with acute respiratory decomponsation. Does not have any known or documented history of COPD or other lung pathology, does not see doctors other than oncologist. On arrival to ED, SpO2 82%RA, improved to 95% with 3L NC. She was reported to be tachypneic in the mid-40s and had minimal air movement. She was treated with solumedrol, hour long duoneb, cefepime. She had significant anxiety and distress just from the mask for the neb - almost left AMA. Was not at all ammenable to BiPap trial. CTA was done that did show changes consistent with COPD and some scarring, no consolidation or right heart strain. A/P: - COPD exacerbation: no prior diagnosis but with significant smoking history, ongoing smoking, and radiologic emphasematous changes. Continue nebs scheduled and PRN. Solumedrol ongoing. No evidence of underlying pneumonia or infection as cause. ABG without retention. Flu and COVID negative. Patient assessed via real time audiovisual communication system. CCT 12 min Focused Exam Lactate Level 12/02/22 19:25: Lactic Acid Level 1.00 12/02/22 22:56: Lactic Acid Level 1.87 Height, Weight, BMI Height: '" Weight: lbs. oz. kg; 22.38 BMI Method: Lactic Acid Level Laboratory Tests Test 12/02/22 22:56 Lactic Acid Level 1.87 MMOL/L (0.50-2.00) OSKAR DAWSON MD Dec 02, 2022 23:47
[2022-12-03] MEDS: VASOPRESSIN INJECTION 20 UNIT in NS (IVPB) 100 ML IV SCH ×2 (01:00→07:22)
[2022-12-03] MEDS ORDERED: NS IV 500 ML 500 ML IV PRN (01:30)
[2022-12-03] MEDS: methylPREDNISolone 125 MG (Solu-MEDROL) VIAL IVP SCH ×3 (01:52→14:18)
[2022-12-03] MEDS: RT-ALBUTEROL/IPRATROPIUM 3 ML (DUONEB) VIAL INH SCH ×6 (02:19→22:59)
[2022-12-03] MEDS: CEFEPIME 1,000 MG/NS 50 ML IVPB IV SCH ×6 (04:23→20:13)
[2022-12-03] MEDS: LACTATED RINGERS 1,000 ML IV SCH ×3 (04:23→11:24)
[2022-12-03 04:55] LABS: BASOPHILS % (AUTO) 0 % (0-10); EOSINOPHILS % (AUTO) 0 % (0-10); HEMATOCRIT 36 % (35-52); HEMOGLOBIN 11.7 g/dL (11.5-16.0); LYMPHOCYTES # (AUTO) 0.5 10^3/uL (1.0-4.0); LYMPHOCYTES % (AUTO) 6 % (12-44); MEAN CORPUSCULAR HEMOGLOBIN 29 pg (25-34); MEAN CORPUSCULAR HGB CONC 33 g/dL (32-36); MEAN CORPUSCULAR VOLUME 89 fL (80-99); MEAN PLATELET VOLUME 8.9 fL (9.0-12.2); MONOCYTES # (AUTO) 0.1 10^3/uL (0.0-1.0); MONOCYTES % (AUTO) 1 % (0-12); NEUTROPHILS # (AUTO) 8.6 10^3/uL (1.8-7.8); NEUTROPHILS % (AUTO) 93 % (42-75); PLATELET COUNT 265 10^3/uL (130-400); WHITE BLOOD COUNT 9.3 10^3/uL (4.3-11.0)
[2022-12-03 05:53] LABS: LYMPHOCYTES % (MANUAL) 5 %; MONOCYTES % (MANUAL) 1 %; NEUTROPHILS % (MANUAL) 94 %; RBC MORPH NORMAL
[2022-12-03] MEDS ORDERED: MAGNESIUM 1 GM/100 ML IVPB 100 ML IV SCH ×2 (06:00)
[2022-12-03] MEDS ORDERED: POTASSIUM CL 10MEQ/50ML IVPB 50 ML IV SCH ×2 (06:00)
[2022-12-03] MEDS ORDERED: KCL 20 MEQ TAB (K-DUR) PO SCH ×2 (06:00)
[2022-12-03] MEDS: CATHETER FLUSH 10 ML SYR IVP SCH ×3 (06:12→22:12)
[2022-12-03 07:05] LABS: ALBUMIN 3.4 GM/DL (3.2-4.5); BILIRUBIN,TOTAL 0.4 MG/DL (0.1-1.0); CALCIUM 8.5 MG/DL (8.5-10.1); CREATININE SERUM 0.96 MG/DL (0.60-1.30); MAGNESIUM 1.9 MG/DL (1.6-2.4); PHOSPHORUS 2.4 MG/DL (2.3-4.7); POTASSIUM 3.9 MMOL/L (3.6-5.0); TOTAL PROTEIN 6.5 GM/DL (6.4-8.2)
--- NOTE | 2022-12-03 09:21 | Diagnostic Imaging Report ---
INDICATION: Dyspnea COMPARISON: 12/02/2022 TECHNIQUE: Single radiograph chest dated 12/03/2022 FINDINGS: The cardiac silhouette is stable. No significant pulmonary vascular congestion. The lungs are hyperinflated. Scarring within the left midlung is again seen. Increasing left basilar interstitial opacities are noted. The right lung appears stable without new focal pulmonary opacity. No significant pleural effusion. No pneumothorax. Right-sided Port-A-Cath is stable. [place] right curvature of the spine with scattered osseous degenerative changes IMPRESSION: Developing left basilar atelectasis and/or pneumonitis. Persistent background pulmonary hyperinflation. Dictated by: Dictated on workstation # [id number]
--- NOTE | 2022-12-03 12:30 | Tele-ICU Progress Note ---
Subjective Date Seen by a Provider: Dec 03, 2022 Time Seen by a Provider: 12:30 Subjective/Events-last exam Tele-ICU Physician , Consultation as per PCP) Service provided via interactive audio and video telecommunications E-CARE system to a patient admitted to ICU bed in [facility]. Available chart/ vitals / labs / Images reviewed Video assessment done using teleICU camera, rest of exam as per RN Pt is a 67F with h/o lung ca s/p 12 weeks chemo now on maintenance Keytruda,who presented to ED with c/o SOB and increased work of breathing admitted with acute hypoxic respiratory failure likely 2/2 ?Asthma/COPD exacerbation. In ED initially hypoxic however improved when placed on 3L NC. She was treated with solumedrol, duoneb, and antibiotics. Subjective: No events overnight. A/P Neuro: Stable, A&OX3 Resp: Acute resp failure: Improved. Currently remains on Nasal cannula. CXR with no evidence of consolidation. Noted to have hyperinflation. Refused Bipap. No known diagnosis of COPD however given history of smoking would recommend PFTs as outpatient. Cont to wean o2 as tolerated. CV: Stable. GI: No issues General diet Renal: Stable Endo: No issues PPx: SCD Discussed with RN to reach out if any questions or concerns Case and care daily discussed on multidisciplinary rounds (RN, PharmD, Outside Cutter, Respiratory Therapy, mixed crop and livestock farm worker) A total of 25 minutes of critical care time was devoted to this patient today, required to treat and/or prevent further deterioration of critical care condition (as above). I am remotely monitoring this patient from another state. I am unable to do the bedside exam, and history/physical and pertinent information is taken from other notes in the computer and bedside staff. Sepsis Event Evaluation Height, Weight, BMI Height: '" Weight: lbs. oz. kg; 22.74 BMI Method: Focused Exam Lactate Level 12/02/22 19:25: Lactic Acid Level 1.00 12/02/22 22:56: Lactic Acid Level 1.87 Time of Focused Exam: 21:00 Exam Exam Patient acknowledged, consented, and participated in this virtual visit which was conducted using real time audio/video Vital Signs Date Time Temp Pulse Resp B/P (MAP) Pulse Ox O2 Delivery O2 Flow Rate FiO2 12/03/22 11:55 36.4 12/03/22 11:16 95 Nasal Cannula 5.00 12/03/22 10:57 Nasal Cannula 4.00 12/03/22 10:46 94 Nasal Cannula 4.00 12/03/22 10:00 90 19 115/65 (82) 99 Nasal Cannula 5.00 12/03/22 09:00 88 28 128/75 (92) 99 Nasal Cannula 5.00 12/03/22 08:05 Nasal Cannula 5.00 12/03/22 08:00 96 Nasal Cannula 5.00 12/03/22 08:00 82 20 120/76 (91) 95 Nasal Cannula 5.00 12/03/22 07:38 98 Nasal Cannula 5.00 12/03/22 07:33 36.3 12/03/22 07:31 87 12/03/22 07:00 80 16 135/67 (89) 99 Nasal Cannula 5.00 12/03/22 06:00 80 12 109/61 (77) 98 Nasal Cannula 5.00 12/03/22 05:00 82 18 122/67 (85) 98 Nasal Cannula 5.00 12/03/22 04:15 36.4 Nasal Cannula 5.00 12/03/22 04:15 94 Nasal Cannula 5.00 12/03/22 04:00 85 32 128/68 (88) 96 Nasal Cannula 5.00 12/03/22 03:00 84 32 113/61 (78) 97 Nasal Cannula 5.00 12/03/22 02:21 98 Nasal Cannula 5.00 12/03/22 02:00 88 17 106/61 (76) 98 Nasal Cannula 5.00 12/03/22 01:02 86 12/03/22 01:00 86 43 85/51 (62) 98 Nasal Cannula 5.00 12/03/22 00:00 95 Nasal Cannula 5.00 12/03/22 00:00 99 25 101/57 (72) 96 Nasal Cannula 5.00 12/02/22 23:14 Nasal Cannula 5.00 12/02/22 23:06 93 12/02/22 23:00 31 114/74 (87) 93 Nasal Cannula 5.00 12/02/22 22:22 106 12/02/22 22:10 93 Nasal Cannula 5.00 12/02/22 22:07 36.6 5 Nasal Cannula 12/02/22 22:00 25 177/85 (115) 93 Nasal Cannula 5.00 12/02/22 21:52 101 22 139/77 93 Nasal Cannula 3.00 12/02/22 21:00 Nasal Cannula 3.00 12/02/22 19:48 95 Nasal Cannula 3.00 12/02/22 19:02 93 Nasal Cannula 3.00 12/02/22 19:00 36.4 78 30 197/96 (129) 93 Nasal Cannula 3.00 I & O 12/03/22 07:00 Intake Total 2470 ml Balance 2470 ml Height & Weight Height: '" Weight: lbs. oz. 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 AUDI ABREU MD Dec 03, 2022 12:30
[2022-12-03] MEDS ORDERED: PEMB100V IV (14:10)
[2022-12-03] MEDS ORDERED: TRAM50TA3 PO (14:10)
[2022-12-03] MEDS ORDERED: FOLI1TAB33 PO (14:10)
[2022-12-03] MEDS ORDERED: CHOL500050 PO (14:10)
[2022-12-03] MEDS ORDERED: CALC-308 PO (14:10)
[2022-12-03] MEDS ORDERED: PANT40TA52 PO (14:10)
[2022-12-03] MEDS ORDERED: MELA5TAB14 PO (14:10)
[2022-12-03] MEDS ORDERED: ZOLE4VIA5 IV (14:10)
[2022-12-03] MEDS: ALPRAZolam 0.5 MG (XANAX) TAB PO PRN ×2 (14:18→20:14)
[2022-12-03 15:30] VITALS: BP 125/63
--- NOTE | 2022-12-03 15:39 | History & Physical ---
History of Present Illness History of Present Illness Reason for visit/HPI Pt is a 67 y/o female who is known to me from clinic. She has history of chronic tobacco use, with pt currently being treated for lung cancer - status post 12 weeks of chemo and now being treated with Keytruda with Dr. Knott at [place]. She reports that she was in [place] yesterday, had a cough, was being treated by her [employer] [place], then she got progressively short of breath with Avril meza ntjulian getting short enough of breath and her bringing her in to the ER. She reported to the ER that she had never been told she had pulmonary disease other than her cancer. She has been being treated by the cancer center almost exclusively for the past 6-9 months. Date of Admission Dec 02, 2022 at 21:55 Date Seen by a Provider: Dec 03, 2022 Time Seen by a Provider: 08:30 Attending Physician Aj Romo MD Admitting Physician Admitting Physician: Aj Romo MD Attending Physician: Aj Romo MD Consult EICU Allergies and Home Medications Allergies Coded Allergies: codeine (Verified Allergy, Unknown, 11/15/07) Patient Home Medication List Home Medication List Reviewed: Yes Alprazolam (Alprazolam) 0.5 Mg Tablet, 0.5 MG PO 0700,1300, (Reported) Entered as Reported by: SAMUEL POWERS on 06/07/21 1232 Last Action: Continued Calcium Carbonate (Calcium) 500 Mg Calcium (1250 Mg) Tab.chew, 500 MG PO BID, (Reported) Entered as Reported by: KADEN PIERCE on 12/03/221409 Last Action: Held Cholecalciferol (Vitamin D3) (Vitamin D3) 125 Mcg (5000 Unit) Capsule, 125 MCG PO DAILY, (Reported) Entered as Reported by: KADEN PIERCE on 12/03/221409 Last Action: Held Folic Acid (Folic Acid) 1 Mg Tablet, 1 MG PO 1300, (Reported) Entered as Reported by: KADEN PIERCE on 12/03/221409 Last Action: Continued Furosemide (Furosemide) 20 Mg Tablet, 20 MG PO DAILY, (Reported) Entered as Reported by: SAMUEL POWERS on 06/07/21 1232 Last Action: Continued Melatonin (Melatonin) 5 Mg Tablet, 5 MG PO HS PRN for SLEEP, (Reported) Entered as Reported by: KADEN PIERCE on 12/03/221409 Last Action: Reviewed Metoprolol Tartrate (Metoprolol Tartrate) 100 Mg Tablet, 100 MG PO 1300, (Reported) Entered as Reported by: SAMUEL POWERS on 06/07/211231 Last Action: Held Pantoprazole Sodium (Pantoprazole Sodium) 40 Mg Tablet.dr, 40 MG PO 1300, (Reported) Entered as Reported by: KADEN PIERCE on 12/03/221409 Last Action: Continued Pembrolizumab (Keytruda) 100 Mg/4 Ml (25 Mg/Ml) Vial, 200 MG IV EVERY 3 WEEKS, (Reported) Entered as Reported by: KADEN PIERCE on 12/03/221409 Last Action: Held Pravastatin Sodium (Pravastatin Sodium) 20 Mg Tablet, 20 MG PO HS, (Reported) Entered as Reported by: SAMUEL POWERS on 06/07/211231 Last Action: Held Telmisartan (Telmisartan) 80 Mg Tablet, 80 MG PO DAILY, (Reported) Entered as Reported by: SAMUEL POWERS on 06/07/211231 Last Action: Held Tramadol HCl (Tramadol HCl) 50 Mg Tablet, 100 MG PO DAILY, (Reported) Entered as Reported by: KADEN PIERCE on 12/03/221409 Last Action: Continued Zoledronic Acid (Zoledronic Acid) 4 Mg Vial, 3 MG IV EVERY 6 WEEKS, (Reported) Entered as Reported by: KADEN PIERCE on 12/03/221409 Last Action: Held Discontinued Medications Levothyroxine Sodium (Levothyroxine Sodium) 25 Mcg Tablet, 25 MCG PO DAILY, (Reported) Discontinued Reason: No Longer Taking Entered as Reported by: SAMUEL POWERS on 06/07/211231 Last Action: Discontinued Thyroid,Pork ([place] Thyroid) 30 Mg Tablet, 30 MG PO DAILY, (Reported) Discontinued Reason: No Longer Taking Entered as Reported by: SAMUEL POWERS on 06/07/211231 Last Action: Discontinued Tramadol HCl (Tramadol HCl) 50 Mg Tablet, 50-100 MG PO TID PRN for PAIN-MILD (1- 4), (Reported) Discontinued Reason: No Longer Taking Entered as Reported by: SAMUEL POWERS on 06/07/21 1232 Last Action: Discontinued Past Tlelalq-Toaoqu-Jrzzqz Hx Patient Social History Marrital Status: Living Status: lives at home with spouse Employed/Student: self-employed Tobacco Use?: Yes Tobacco type used: Cigarettes Smoking Status: Current Everyday Smoker Use of E-Cig and/or Vaping dev: No Substance use?: No Alcohol Use?: No Pt feels they are or have been: No Immunizations Up To Date First/Initial COVID19 Vaccinat: 2020 Second COVID19 Vaccination Jm: 2020 Tetanus Booster (TDap): Unknown Date of Pneumonia Vaccine: Aug 18, 2001 Seasonal Allergies Seasonal Allergies: No Current Status status: No status: No Advance Directives: No Communicates: Verbally Primary Language: Canadian Preferred Spoken Language: Canadian Is interpretation needed?: No Sensory deficits: Vision impairment Implanted or Applied Medical D: Port-a-cath Past Medical History Surgeries: Section, Orthopedic, Vascular Surgery High Cholesterol, Hypertension, Peripheral Vascular Hypothyroidsim Lung Did You Recieve Any Treatments: Yes What Type of Treatment Did You: Chemotherapy LUNG CANCER WITH METS TO SCAPULA DX 05/2021 COMPLETED 12 WEEKS OF CHEMO, NOW ON KEYTRUDA Blood Disorders: No Family Medical History Reviewed Nursing Family Hx Hypertension SOCIAL HISTORY: -SMOKED 2 PPD, NOW 1/2 PPD -ETOH -DRUGS Review of Systems Constitutional: No chills, No fever; malaise, weakness EENTM: No hearing loss, No dental problems, No throat pain Respiratory: cough, dyspnea on exertion; No orthopnea; short of breath, wheezing Cardiovascular: No chest pain, No edema, No palpitations Gastrointestinal: No abdominal pain, No constipation, No diarrhea, No loss of appetite, No nausea, No vomiting Genitourinary: No dysuria Musculoskeletal: No back pain; muscle weakness Skin: no symptoms reported; No lesions, No lumps Psychiatric/Neurological: Denies Anxiety, Denies Depressed, Denies Headache, Denies Numbness, Denies Paresthesia, Denies Weakness All Other Systems Reviewed Negative Unless Noted: Yes Physical Exam Vital Signs Vital Signs - First Documented 12/02/22 19:00 Temp 36.4 Pulse 78 Resp 30 B/P (MAP) 197/96 (129) Pulse Ox 93 O2 Delivery Nasal Cannula O2 Flow Rate 3.00 Capillary Refill : Less Than 3 Seconds Height, Weight, BMI Height: '" Weight: lbs. oz. kg; 22.74 BMI Method: General Appearance: WD/WN, Mild Distress HEENT: PERRL/EOMI, Pharynx Normal Neck: Full Range of Motion, Non Tender, Supple Respiratory: Chest Non Tender, Decreased Breath Sounds (in bases), Respiratory Distress (mildly short of breath with conversation) Cardiovascular: Regular Rate, Rhythm, No Murmur, Normal Peripheral Pulses Gastrointestinal: Normal Bowel Sounds, Non Tender, Soft Rectal: Deferred Back: Normal Inspection, No Vertebral Tenderness Extremity: Normal Capillary Refill, Non Tender, No Calf Tenderness, Other (clubbing of digits) Neurologic/Psychiatric: Alert, Oriented x3, No Motor/Sensory Deficits, Normal Mood/Affect Skin: Normal Color, Warm/Dry Comments CTA - IMPRESSION: 1. COPD. 2. Bilateral adrenal masses. These are low density and are probably adenomas or myelolipomas. 3. There is an abdominal aortic aneurysm. No evidence for pulmonary embolism. Assessment/Plan Assessment and Plan COPD with Emphysema and acute exacerbation Severe Hypoxia Lung Cancer Chronic Hypertension Hyperlipidemia Leukocytosis Hyponatremia - mild COPD with Emphysema and acute exacerbation with Severe Hypoxia with complication of Lung Cancer and Chronic Tobaccoism - current every day smoker - discussed with pt and spouse - will keep her in the hospital on IV steroids, will stop iv antibiotics after 48 hours if no change in white count. - monitor cxr tomorrow. - pt will need ambulatory oxygen tomorrow to see if she needs oxygen prior to discharge. - pt does not want to be on oxygen per her report today. Chronic Hypertension - change toprol to lower dose - plan on starting tomorrow if pressure increases overnight. Hyperlipidemia - hold statin for now. Leukocytosis - improved - however, anticipate elevation tomorrow with iv steroid use. Hyponatremia - mild - improved today - montior labs dvt prophylaxis with lovenox, scd's gi prophylaxis with ppi Admission Diagnosis COPD with Emphysema and acute exacerbation Severe Hypoxia Lung Cancer Chronic Hypertension Hyperlipidemia Leukocytosis Hyponatremia - mild Admission Status: Inpatient Order (span 2 midnights) Reason for Inpatient Admission: inpatient admission for COPD with emphysema exacerbation - will require at least 48- 72 hours in hospital for stabilization and management. AJ ROMO MD Dec 03, 2022 15:39
[2022-12-03] MEDS ORDERED: ENOXAPARIN 40 MG/0.4 ML (LOVENOX) SYR SC SCH (16:30)
[2022-12-03 20:39] VITALS: BP 106/58
[2022-12-03 21:10] VITALS: BP 110/56
[2022-12-04] VITALS: BP 98/62
[2022-12-04 01:00] VITALS: BP 102/66
[2022-12-04] MEDS: RT-ALBUTEROL/IPRATROPIUM 3 ML (DUONEB) VIAL INH SCH (03:00)
[2022-12-04 04:00] VITALS: BP 102/63
[2022-12-04] MEDS: CEFEPIME 1,000 MG/NS 50 ML IVPB IV SCH ×4 (04:14→11:33)
[2022-12-04] MEDS: CATHETER FLUSH 10 ML SYR IVP SCH (05:34)
[2022-12-04 05:45] LABS: BASOPHILS % (AUTO) 0 % (0-10); EOSINOPHILS % (AUTO) 0 % (0-10); HEMATOCRIT 32 % (35-52); HEMOGLOBIN 10.7 g/dL (11.5-16.0); LYMPHOCYTES % (AUTO) 9 % (12-44); MEAN CORPUSCULAR HEMOGLOBIN 30 pg (25-34); MEAN CORPUSCULAR HGB CONC 33 g/dL (32-36); MEAN CORPUSCULAR VOLUME 88 fL (80-99); MEAN PLATELET VOLUME 8.9 fL (9.0-12.2); MONOCYTES # (AUTO) 0.5 10^3/uL (0.0-1.0); MONOCYTES % (AUTO) 5 % (0-12); NEUTROPHILS % (AUTO) 86 % (42-75); PLATELET COUNT 254 10^3/uL (130-400); WHITE BLOOD COUNT 11.7 10^3/uL (4.3-11.0)
[2022-12-04 06:11] LABS: ALBUMIN 3.2 GM/DL (3.2-4.5); BILIRUBIN,TOTAL 0.3 MG/DL (0.1-1.0); CALCIUM 8.6 MG/DL (8.5-10.1); CREATININE SERUM 0.8 MG/DL (0.60-1.30); PHOSPHORUS 1.8 MG/DL (2.3-4.7); POTASSIUM 3.4 MMOL/L (3.6-5.0); TOTAL PROTEIN 6.1 GM/DL (6.4-8.2)
[2022-12-04] MEDS ORDERED: ALPRAZolam 0.5 MG (XANAX) TAB PO SCH (07:00)
[2022-12-04 08:19] VITALS: BP 110/67
--- NOTE | 2022-12-04 08:58 | Discharge Summary ---
Diagnosis/Chief Complaint Date of Admission Dec 02, 2022 at 21:55 Date of Discharge Reason Hospital Visit Pt is a 67 y/o female who is known to me from clinic. She has history of chronic tobacco use, with pt currently being treated for lung cancer - status post 12 weeks of chemo and now being treated with Keytruda with Dr. Knott at [place]. 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 She reported to the ER that she had never been told she had pulmonary disease other than her cancer. She has been being treated by the cancer center almost exclusively for the past 6-9 months. Discharge Summary Discharge Physical Examination Allergies: Coded Allergies: codeine (Verified Allergy, Unknown, 11/15/07) Vitals & I&Os Vital Signs Date Time Temp Pulse Resp B/P (MAP) Pulse Ox O2 Delivery O2 Flow Rate FiO2 12/04/22 08:19 37.1 91 18 110/67 (81) 93 Room Air 12/03/22 15:00 4.00 Hospital Course Pending Labs Laboratory Tests 12/04/22 05:20: White Blood Count 11.7, Red Blood Count 3.63, Hemoglobin 10.7, Hematocrit 32, Mean Corpuscular Volume 88, Mean Corpuscular Hemoglobin 30, Mean Corpuscular Hemoglobin Concent 33, Red Cell Distribution Width 14.5, Platelet Count 254, Mean Platelet Volume 8.9, Immature Granulocyte % (Auto) 1, Neutrophils (%) (A uto) 86, Lymphocytes (%) (Auto) 9, Monocytes (%) (Auto) 5, Eosinophils (%) (Auto) 0, Basophils (%) (Auto) 0, Neutrophils # (Auto) 10.0, Lymphocytes # (Auto) 1.0, Monocytes # (Auto) 0.5, Eosinophils # (Auto) 0.0, Basophils # (Auto) 0.0, Immature Granulocyte # (Auto) 0.1, Sodium Level 141, Potassium Level 3.4, Chloride Level 112, Carbon Dioxide Level 17, Anion Gap 12, Blood Urea Nitrogen 9, Creatinine 0.80, Estimat Glomerular Filtration Rate 81, BUN/Creatinine Ratio 11, Glucose Level 143, Calcium Level 8.6, Corrected Calcium 9.2, Phosphorus Level 1.8, Magnesium Level 2.0, Total Bilirubin 0.3, Aspartate Amino Transf (AST/SGOT) 15, Alanine Aminotransferase (ALT/SGPT) 12, Alkaline Phosphatase 120, Total Protein 6.1, Albumin 3.2 Discharge Instructions to patient/family Please see electronic discharge instructions given to patient. Discharge Medications Reviewed and agree with Discharge Medication list on patient's Discharge Instruction sheet AJ LIND MD Dec 04, 2022 08:58
[2022-12-04] MEDS ORDERED: RT-ALBUTEROL/IPRATROPIUM 3 ML (DUONEB) VIAL INH SCH (09:00)
[2022-12-04] MEDS ORDERED: FUROSEMIDE 20 MG (LASIX) TAB PO SCH (09:00)
[2022-12-04] MEDS ORDERED: CEFD300C3 PO (09:03)
[2022-12-04] MEDS ORDERED: DEXA2TAB PO (09:03)
--- NOTE | 2022-12-04 09:05 | Discharge Inst-Simple/Standard ---
Discharge Inst-Standard Reconcile Patient Problems Problems Reviewed?: Yes Discharge Medications New, Converted or Re-Newed RX: Transmitted to Pharmacy Patient Instructions/Follow Up Plan of Care/Instructions/FU: [facility] KEEP APPTS FOR IMAGING AT [place] AND [facility] FOLLOW UP APPT AT [facility] FOR KEYTRUDA INFUSION Activity as Tolerated: Yes Goal: STOP SMOKING Discharge Diet: Regular Diet Health Concerns: PNEUMONITIS EMPHYSEMA HX LUNG CANCER SMOKING Return to The Hospital For: ANY RECURRENT SYMPTOMS OF WORSENING SHORTNESS OF BREATH, OR OTHER LIFETHREATENING ILLNESS OR INJURY Medication List: Active Scripts Active Cefdinir 300 Mg Capsule 300 Mg PO BID Dexamethasone 2 Mg Tablet 2 Mg PO DAILY Reported Melatonin 5 Mg Tablet 5 Mg PO HS PRN Calcium (Calcium Carbonate) 500 Mg Calcium (1250 Mg) Tab.chew 500 Mg PO BID Vitamin D3 (Cholecalciferol (Vitamin D3)) 125 Mcg (5000 Unit) Capsule 125 Mcg PO DAILY Zoledronic Acid 4 Mg Vial 3 Mg IV EVERY 6 WEEKS Keytruda (Pembrolizumab) 100 Mg/4 Ml (25 Mg/Ml) Vial 200 Mg IV EVERY 3 WEEKS Pantoprazole Sodium 40 Mg Tablet.dr 40 Mg PO 1300 Tramadol HCl 50 Mg Tablet 100 Mg PO DAILY TAKES 2 (50MG) TABS Folic Acid 1 Mg Tablet 1 Mg PO 1300 Pravastatin Sodium 20 Mg Tablet 20 Mg PO HS Furosemide 20 Mg Tablet 20 Mg PO DAILY Metoprolol Tartrate 100 Mg Tablet 100 Mg PO 1300 Alprazolam 0.5 Mg Tablet 0.5 Mg PO 0700,1300 Telmisartan 80 Mg Tablet 80 Mg PO DAILY Lab results: Laboratory Tests Test 12/04/22 05:20 Range/Units White Blood Count 11.7 H 4.3-11.0 10^3/uL Red Blood Count 3.63 L 3.80-5.11 10^6/uL Hemoglobin 10.7 L 11.5-16.0 g/dL Hematocrit 32 L 35-52 % Mean Corpuscular Volume 88 80-99 fL Mean Corpuscular Hemoglobin 30 25-34 pg Mean Corpuscular Hemoglobin Concent 33 32-36 g/dL Red Cell Distribution Width 14.5 10.0-14.5 % Platelet Count 254 130-400 10^3/uL Mean Platelet Volume 8.9 L 9.0-12.2 fL Immature Granulocyte % (Auto) 1 % Neutrophils (%) (Auto) 86 H 42-75 % Lymphocytes (%) (Auto) 9 L 12-44 % Monocytes (%) (Auto) 5 0-12 % Eosinophils (%) (Auto) 0 0-10 % Basophils (%) (Auto) 0 0-10 % Neutrophils # (Auto) 10.0 H 1.8-7.8 10^3/uL Lymphocytes # (Auto) 1.0 1.0-4.0 10^3/uL Monocytes # (Auto) 0.5 0.0-1.0 10^3/uL Eosinophils # (Auto) 0.0 0.0-0.3 10^3/uL Basophils # (Auto) 0.0 0.0-0.1 10^3/uL Immature Granulocyte # (Auto) 0.1 0.0-0.1 10^3/uL Sodium Level 141 135-145 MMOL/L Potassium Level 3.4 L 3.6-5.0 MMOL/L Chloride Level 112 H 98-107 MMOL/L Carbon Dioxide Level 17 L 21-32 MMOL/L Anion Gap 12 5-14 MMOL/L Blood Urea Nitrogen 9 7-18 MG/DL Creatinine 0.80 0.60-1.30 MG/DL Estimat Glomerular Filtration Rate 81 BUN/Creatinine Ratio 11 Glucose Level 143 H 70-105 MG/DL Calcium Level 8.6 8.5-10.1 MG/DL Corrected Calcium 9.2 8.5-10.1 MG/DL Phosphorus Level 1.8 L 2.3-4.7 MG/DL Magnesium Level 2.0 1.6-2.4 MG/DL Total Bilirubin 0.3 0.1-1.0 MG/DL Aspartate Amino Transf (AST/SGOT) 15 5-34 U/L Alanine Aminotransferase (ALT/SGPT) 12 0-55 U/L Alkaline Phosphatase 120 40-136 U/L Total Protein 6.1 L 6.4-8.2 GM/DL Albumin 3.2 3.2-4.5 GM/DL My orders: Orders - AJ LIND MD Alprazolam Tablet (Xanax Tablet) (12/03/22 14:00) Transfer - Bed/Room/Location (12/03/22 15:10) Alprazolam Tablet (Xanax Tablet) (12/04/22 07:00) Folic Acid Tablet (Folic Acid Tablet) (12/04/22 13:00) Furosemide Tablet (Lasix Tablet) (12/04/22 09:00) Pantoprazole Tablet (Protonix Tablet) (12/04/22 13:00) Rx-Tramadol Hcl (Rx-Ultram) (12/04/22 09:00) Cpoe Transfer Order Process (12/03/22 15:39) Tramadol Tablet (Ultram Tablet) (12/04/22 09:00) Enoxaparin Injection (Lovenox Injection) (12/03/22 16:30) Sequential Compression Device (12/03/22 16:22) Cbc With Automated Diff (12/04/22 05:00) Comprehensive Metabolic Panel (12/04/22 05:00) Magnesium (12/04/22 05:00) Phosphorus (12/04/22 05:00) Albuterol/Ipra Inhalation Soln (Duoneb I (12/04/22 09:00) Mat Initiate Protocol (12/04/22 07:45) Ambulate W/O 02-Home O2 Qual (12/04/22 08:58) Attending Discharge Inpt/Inobs (12/04/22 09:01) AJ LIND MD Dec 04, 2022 09:05
--- NOTE | 2022-12-04 09:21 | Diagnostic Imaging Report ---
EXAMINATION: Chest 1 view HISTORY: Dyspnea. COMPARISON: 12/03/2022. FINDINGS: Stable right port. The lung volumes are normal. There is improved aeration in the left lung base. No focal consolidation is seen. No large pleural effusion or pneumothorax is seen. The cardiomediastinal silhouette is normal in size and contour. There is calcified aortic atherosclerotic plaque. No acute osseous abnormality is seen. S-shaped curvature of the thoracolumbar spine is seen. IMPRESSION: 1. Improved aeration in the left lung base, which may represent resolving atelectasis or infection. Dictated by: Dictated on workstation # [id number]
[2022-12-04 11:30] VITALS: BP 122/73
[2022-12-04 12:50] VITALS: BP 122/73
[2022-12-04] MEDS ORDERED: FOLIC ACID 1 MG TAB PO SCH (13:00)
[2022-12-04] MEDS ORDERED: PANTOPRAZOLE 40 MG (PROTONIX) TAB PO SCH (13:00)
== END 2022-12-04 12:50 | disposition home or self-care (01) | DRG 189 ==
LOC: EDUNIT# 18:56 → ER 18:58 → ICU 21:55 → 4TH 12-03 15:10
PROVIDERS: ADMIT Family Medicine; ATTEND Family Medicine
DX: J96.01 Acute respiratory failure with hypoxia (principal); C34.90 Malignant neoplasm of unspecified part of unspecified bronchus or lung; C79.51 Secondary malignant neoplasm of bone; E87.1 Hypo-osmolality and hyponatremia; F17.210 Nicotine dependence, cigarettes, uncomplicated; E03.9 Hypothyroidism, unspecified; I10 Essential (primary) hypertension; E78.00 Pure hypercholesterolemia, unspecified; F41.9 Anxiety disorder, unspecified; Z20.822 Contact with and (suspected) exposure to COVID-19; Z79.890 Hormone replacement therapy; Z79.899 Other long term (current) drug therapy; J43.9 Emphysema, unspecified; D72.829 Elevated white blood cell count, unspecified; Z86.73 Personal history of transient ischemic attack (TIA), and cerebral infarction without residual deficits; Z92.21 Personal history of antineoplastic chemotherapy
CPT/HCPCS: 36415; 36600; 71045; 71275; 80053; 81000; 82805; 83605; 83735; 83880; 84100; 84484; 85007; 85025; 85027; 85610; 85730; 87040; 87081; 87088; 87636; 93005; 93041; 94640; 94664; 94760; 99291

== ENCOUNTER → 2022-12-12 | Outpatient (CLI) | payer OTHER ==
[~2022-12-12] MED LIST changes: +CALC-308 PO; +CEFD300C3 PO; +CHOL500050 PO; +DEXA2TAB PO; +FOLI1TAB33 PO; +MELA5TAB14 PO; +PANT40TA52 PO; +PEMB100V IV; +TRAM50TA3 PO; +ZOLE4VIA5 IV
--- NOTE | 2022-12-12 16:10 | Diagnostic Imaging Report ---
INDICATION: Lung cancer. Patient was administered 26.2 mCi technetium 99m MDP intravenously and whole-body imaging was performed after a three-hour delay. Comparison is made with prior whole body bone scan from 08/20/2022. Normal physiologic uptake of activity within the axial and appendicular skeletons noted. There is activity within the kidneys with excretion to the urinary bladder. The scoliotic curvature to the thoracolumbar spine is again noted. Previously noted uptake in the region of the right maxilla is unchanged. Vague uptake mid thoracic spine is stable as well. No new foci of tracer uptake is identified to suggest osseous metastatic disease. IMPRESSION: Stable whole body bone scan when compared with exam from 08/20/2022. Dictated by: Dictated on workstation # [id number]
== END ==
LOC: CARD 11:30
PROVIDERS: ATTEND Internal Medicine Hematology & Oncology
DX: C34.12 Malignant neoplasm of upper lobe, left bronchus or lung (principal); C79.51 Secondary malignant neoplasm of bone
CPT/HCPCS: 78306; A9503

== ENCOUNTER 2023-01-25 13:28 | Inpatient (IN) | payer BC ==
[~2023-01-25] VITALS: Ht 157.5 cm; Wt 51.1 kg
[2023-01-25] MEDS ORDERED: NS IV 1000 ML 1,000 ML IV STA (13:43)
--- NOTE | 2023-01-25 13:43 | ED Respiratory ---
General Chief Complaint: Respiratory Problems Stated Complaint: SOA Nursing Triage Note: PT TO ROOM 03 VIA W/C WITH C/O SOB. PT 59%RA UPON ARRIVAL. PT REPORTS HX OF LUNG CANCER. Source: patient, family () Exam Limitations: clinical condition History of Present Illness Date Seen by Provider: Jan 25, 2023 Time Seen by Provider: 13:30 Initial Comments Patient is a 67-year-old female with a history of lung cancer who presents to the emergency room with a chief complaint of increasing shortness of breath since last evening. Patient has had a nonproductive cough since last night. She denies fevers or chills. She denies pain. She does not normally wear oxygen at home. On presentation she is 59% on room air with significant increased work of breathing, cyanosis of her fingertips. She tells me that she is due for a dose of Keytruda on Friday. She tells me that her lung cancer has improved dramatically. She denies abdominal pain, nausea or vomiting. She denies sick contacts. She is COVID and flu vaccinated. Timing/Duration: other (last night) Severity: severe Associated Symptoms: cough, lightheadedness, shortness of breath Allergies and Home Medications Allergies Coded Allergies: codeine (Verified Allergy, Unknown, 11/15/07) Patient Home Medication List Home Medication List Reviewed: Yes Alprazolam (Alprazolam) 0.5 Mg Tablet, 0.5 MG PO 0700,1300, (Reported) Entered as Reported by: SAMUEL POWERS on 06/07/21 1232 Calcium Carbonate (Calcium) 500 Mg Calcium (1250 Mg) Tab.chew, 500 MG PO BID, (Reported) Entered as Reported by: KADEN PIERCE on 12/03/22 1410 Cefdinir (Cefdinir) 300 Mg Capsule, 300 MG PO BID Prescribed by: AJ ROMO on 12/04/22 09 Cholecalciferol (Vitamin D3) (Vitamin D3) 125 Mcg (5000 Unit) Capsule, 125 MCG PO DAILY, (Reported) Entered as Reported by: KADEN PIERCE on 12/03/22 1410 Dexamethasone (Dexamethasone) 2 Mg Tablet, 2 MG PO DAILY Prescribed by: AJ ROMO on 12/04/22 09 Folic Acid (Folic Acid) 1 Mg Tablet, 1 MG PO 1300, (Reported) Entered as Reported by: KADEN PIERCE on 12/03/221409 Furosemide (Furosemide) 20 Mg Tablet, 20 MG PO DAILY, (Reported) Entered as Reported by: SAMUEL POWERS on 06/07/21 1232 Melatonin (Melatonin) 5 Mg Tablet, 5 MG PO HS PRN for SLEEP, (Reported) Entered as Reported by: KADEN PIERCE on 12/03/22 141 Metoprolol Tartrate (Metoprolol Tartrate) 100 Mg Tablet, 100 MG PO 1300, (Reported) Entered as Reported by: SAMUEL POWERS on 06/07/21 1232 Pantoprazole Sodium (Pantoprazole Sodium) 40 Mg Tablet.dr, 40 MG PO 1300, (Reported) Entered as Reported by: KADEN PIERCE on 12/03/221409 Pembrolizumab (Keytruda) 100 Mg/4 Ml (25 Mg/Ml) Vial, 200 MG IV EVERY 3 WEEKS, (Reported) Entered as Reported by: KADEN PIERCE on 12/03/22 141 Pravastatin Sodium (Pravastatin Sodium) 20 Mg Tablet, 20 MG PO HS, (Reported) Entered as Reported by: SAMUEL POWERS on 06/07/21 123 Tramadol HCl (Tramadol HCl) 50 Mg Tablet, 100 MG PO DAILY, (Reported) Entered as Reported by: KADEN PIERCE on 12/03/221409 Zoledronic Acid (Zoledronic Acid) 4 Mg Vial, 3 MG IV EVERY 6 WEEKS, (Reported) Entered as Reported by: KADEN PIERCE on 12/03/221409 Review of Systems Review of Systems Constitutional: see HPI EENTM: no symptoms reported Respiratory: cough, short of breath Cardiovascular: no symptoms reported Gastrointestinal: no symptoms reported Genitourinary: no symptoms reported Musculoskeletal: no symptoms reported Skin: no symptoms reported All Other Systems Reviewed Negative Unless Noted: Yes Past Uuhmivl-Stimzs-Yyipaf Hx Patient Social History Tobacco Use?: Yes Tobacco type used: Cigarettes Smoking Status: Current Everyday Smoker Smokeless Tobacco Frequency: Never a User Use of E-Cig and/or Vaping dev: No Use of E-Cig and/or Vaping Ed: Never a User Substance use?: No Alcohol Use?: No Pt feels they are or have been: No Immunizations Up To Date First/Initial COVID19 Vaccinat: 2020 Second COVID19 Vaccination Jm: 2020 Third COVID19 Vaccination Date: 2021 Seasonal Allergies Seasonal Allergies: No Past Medical History Surgery/Hospitalization HX: Lung CA, hypothyroid, HTN, stroke Surgeries: Yes (D&C x2, ganglion cyst removed, vascular stent; PORT RIGHT CHEST) Section, Orthopedic, Vascular Surgery Respiratory: Yes (LUNG CANCER WITH METS TO SCAPULA) Cardiac: Yes High Cholesterol, Hypertension, Peripheral Vascular Neurological: No Reproductive Disorders: No Genitourinary: No Gastrointestinal: No Musculoskeletal: No Endocrine: Yes Hypothyroidsim HEENT: No Cancer: Yes Lung Did You Recieve Any Treatments: Yes What Type of Treatment Did You: Chemotherapy Psychosocial: No Integumentary: No Blood Disorders: No Family Medical History Hypertension SOCIAL HISTORY: -SMOKED 2 PPD, NOW 1/2 PPD -ETOH -DRUGS Physical Exam Vital Signs - First Documented 01/25/23 14:10 Pulse Ox 94 O2 Flow Rate 30.00 Capillary Refill : Less Than 3 Seconds Height: '" Weight: lbs. oz. kg; 21.00 BMI Method: General Appearance: moderate distress Eyes: Bilateral Eye Normal Inspection, Bilateral Eye PERRL, Bilateral Eye EOMI HEENT: other (dry oral mucosa) Neck: normal inspection Respiratory: respiratory distress, decreased breath sounds (throughout; scant exp wheeze left upper lobe), wheezing Cardiovascular: regular rate, rhythm, tachycardia (122) Gastrointestinal: non tender, soft Extremities: normal inspection, no pedal edema Neurologic/Psychiatric: alert, normal mood/affect Skin: warm/dry, pallor (mild cyanosis) Focused Exam Lactate Level 01/25/23 13:35: Lactic Acid Level 1.02 Lactic Acid Level Laboratory Tests Test 01/25/23 13:35 Lactic Acid Level 1.02 MMOL/L (0.50-2.00) Progress/Results/Core Measures Suspected Sepsis Recent Fever Within 48 Hours: No SIRS Temperature: Pulse: 112 Respiratory Rate: 20 Laboratory Tests 01/25/23 13:35: White Blood Count 4.3 Blood Pressure 186 /90 Mean: 122 01/25/23 13:35: Lactic Acid Level 1.02 Laboratory Tests 01/25/23 13:35: Creatinine 0.88, INR Comment 1.1, Platelet Count 278, Total Bilirubin 0.4 Results/Orders Lab Results Laboratory Tests Test 01/25/23 13:35 6/10/23 13:43 01/25/23 14:03 01/25/23 14:44 Range/Units White Blood Count 4.3 4.3-11.0 10^3/uL Red Blood Count 4.25 3.80-5.11 10^6/uL Hemoglobin 12.3 11.5-16.0 g/dL Hematocrit 38 35-52 % Mean Corpuscular Volume 89 80-99 fL Mean Corpuscular Hemoglobin 29 25-34 pg Mean Corpuscular Hemoglobin Concent 33 32-36 g/dL Red Cell Distribution Width 13.6 10.0-14.5 % Platelet Count 278 130-400 10^3/uL Mean Platelet Volume 8.4 L 9.0-12.2 fL Immature Granulocyte % (Auto) 0 % Neutrophils (%) (Auto) 67 42-75 % Lymphocytes (%) (Auto) 20 12-44 % Monocytes (%) (Auto) 8 0-12 % Eosinophils (%) (Auto) 4 0-10 % Basophils (%) (Auto) 1 0-10 % Neutrophils # (Auto) 2.9 1.8-7.8 10^3/uL Lymphocytes # (Auto) 0.9 L 1.0-4.0 10^3/uL Monocytes # (Auto) 0.3 0.0-1.0 10^3/uL Eosinophils # (Auto) 0.2 0.0-0.3 10^3/uL Basophils # (Auto) 0.0 0.0-0.1 10^3/uL Immature Granulocyte # (Auto) 0.0 0.0-0.1 10^3/uL Prothrombin Time 14.6 12.2-14.7 SEC INR Comment 1.1 0.8-1.4 Activated Partial Thromboplast Time 41 H 24-35 SEC D-Dimer 1.64 H 0.00-0.49 UG/ML Sodium Level 134 L 135-145 MMOL/L Potassium Level 3.1 L 3.6-5.0 MMOL/L Chloride Level 97 L 98-107 MMOL/L Carbon Dioxide Level 25 21-32 MMOL/L Anion Gap 12 5-14 MMOL/L Blood Urea Nitrogen 7 7-18 MG/DL Creatinine 0.88 0.60-1.30 MG/DL Estimat Glomerular Filtration Rate 72 BUN/Creatinine Ratio 8 Glucose Level 133 H 70-105 MG/DL Lactic Acid Level 1.02 0.50-2.00 MMOL/L Calcium Level 8.6 8.5-10.1 MG/DL Corrected Calcium 8.8 8.5-10.1 MG/DL Total Bilirubin 0.4 0.1-1.0 MG/DL Aspartate Amino Transf (AST/SGOT) 18 5-34 U/L Alanine Aminotransferase (ALT/SGPT) 13 0-55 U/L Alkaline Phosphatase 117 40-136 U/L Troponin I 0.041 H <0.028 NG/ML B-Type Natriuretic Peptide 165.4 H <100.0 PG/ML Total Protein 7.1 6.4-8.2 GM/DL Albumin 3.8 3.2-4.5 GM/DL Blood Gas Puncture Site UNK RIGHT RADIAL Blood Gas Patient Temperature 38 37 Arterial Blood pH 7.33 *L 7.38 7.37-7.43 Arterial Blood Partial Pressure CO2 50 H 44 35-45 MMHG Arterial Blood Partial Pressure O2 141 H 80 79-93 MMHG Arterial Blood HCO3 26 26 23-27 MMOL/L Arterial Blood Total CO2 27.0 26.9 21.0-31.0 MMOL/L Arterial Blood Oxygen Saturation 99 97 94-100 % Arterial Blood Base Excess 0.5 1.1 -2.5-2.5 MMOL/L John Test UNK POSITIVE Blood Gas Ventilator Setting NO NO Blood Gas Inspired Oxygen UNK 30% My Orders Orders - TORIE MCKINLEY MD Cbc With Automated Diff (01/25/23 13:43) Comprehensive Metabolic Panel (01/25/23 13:43) Blood Culture (01/25/23 13:43) Sputum Culture (01/25/23 13:43) Urinalysis (01/25/23 13:43) Urine Culture (01/25/23 13:43) Protime With Inr (01/25/23 13:43) Partial Thromboplastin Time (01/25/23 13:43) Chest 1 View, Ap/Pa Only (01/25/23 13:43) Ed Iv/Invasive Line Start (01/25/23 13:43) Ed Iv/Invasive Line Start (01/25/23 13:43) Vital Signs Adult Sepsis Patie Q15M (01/25/23 13:43) O2 (01/25/23 13:43) Remove Rings In Anticipation O (01/25/23 13:43) Lactic Acid Analyzer (01/25/23 13:43) Troponin I Santa (01/25/23 13:43) Bnp Santa (01/25/23 13:43) Arterial Blood Gas (01/25/23 13:43) Ns Iv 1000 Ml (Sodium Chloride 0.9%) (01/25/23 13:43) Arterial Blood Gas (01/25/23 14:06) Arterial Blood Draw - Obtain (01/25/23 14:06) Blood Culture (01/25/23 13:40) Covid 19 Inhouse Test (01/25/23:23) Fibrin Degradation Products (01/25/23:23) Influenza A And B By Pcr (01/25/23:23) Methylprednisolone Sod Succ (Solu-Medrol (01/25/23 14:45) Albuterol Pre-Mix Nebs (Rt) (Proventil (01/25/23 14:45) Svn Small Volume Nebulizer (01/25/23 14:33) Fentanyl Inj (Sublimaze Injection) (01/25/23 14:45) Medications Given in ED Vital Signs/I&O 01/25/23 01/25/23 01/25/23 13:30 13:30 14:10 Temp 38.0 Pulse 112 102 Resp 20 27 B/P (MAP) 186/90 (122) Pulse Ox 94 O2 Delivery Room Air Room Air O2 Flow Rate 30.00 Capillary Refill : Less Than 3 Seconds Blood Pressure Mean: 122 Progress Note : Time: 14:59 Progress Note Normal sinus rhythm at 96 bpm with slightly depressed ST segment in lead V6 alone of 1 mm. Intervals SC 139 QRS [address]-T wave changes throughout. Patient seen and evaluated by me. Evaluation today includes physical exam, CBC, comprehensive metabolic panel, lactic acid, troponin, BNP, D-dimer and coag profile as well as EKG and chest x-ray. Pertinent physical exam findings well-developed well-nourished female in moderate respiratory distress, cyanosis to the fingertips. Dry oral mucosa. Demonstrating increased work of breathing without retractions. Diffusely diminished breath sounds with scattered expiratory wheezes especially in the left upper lobe. Heart is regular, tachycardic in the low 120s. No lower extremity edema or calf tenderness. Abdomen is soft. No focal neurologic deficits. Differential diagnosis based on history and physical exam: Pulmonary embolism, flash pulmonary edema, pneumonia, acute exacerbation of COPD. Labs, EKG and chest x-ray independently reviewed and interpreted by me. Her CBC shows a white count of 4.3 with a hemoglobin of 12.3 hematocrit of 38, platelets of 278. Chemistry is remarkable for sodium of 134 potassium of 3.1 chloride of 97 bicarb of 25 BUN of 7 creatinine 1.88. Glucose is 133. Lactic acid is 1.02. PT is 14.6 INR 1.1 PTT 41. Her D-dimer is elevated at 1.64. Her BNP is slightly elevated at 165 and her troponin is detectable at 0.041. Chest x-ray shows findings consistent with severe COPD without effusion or infiltrate. EKG shows normal sinus rhythm at [address] segment elevation. She does have some depression in lead V6 of 1 mm. Patient is treated in the emergency department with supplemental oxygen and with albuterol, fentanyl for anxiety while on BiPAP. We will hold off on antibiotics from the emergency department. Case was discussed with Dr Barrett as well due to elevated troponin. Likely PE, going to CT on the way to ICU. ECG Initial ECG Impression Date: Jan 25, 2023 Initial ECG Impression Time: 14:59 Initial ECG Rate: 96 Initial ECG Rhythm: Normal Sinus Initial ECG Intervals SC 139 QRS 102 QTc [address]-T wave changes with 1 mm of depression in lead V6, no ST segment elevation is noted no ectopy Diagnostic Imaging Diagonstic Imaging: Xray Plain Films/CT/US/NM/MRI: chest Comments [facility], [place] NAME: ZAKI SHERIFF [facility] REC#: [id number] PT STATUS: REG ER : 1955 PHYSICIAN: TORIE MCKINLEY MD ADMIT DATE: 01/25/23/ER Draft Date of Exam:01/25/23 CHEST 1 VIEW, AP/PA ONLY INDICATION: Shortness of breath, hypoxia. COMPARISON: 12/04/2021. FINDINGS: Severe COPD. There is a chronic finding noted. There is some linear scarring in the left upper lobe chronic. No acute consolidation. Rightward convexity thoracic scoliotic curvature chronic. Right IJ catheter in the mid SVC chronic. No effusion or pneumothorax. IMPRESSION: Severe chronic lung disease unchanged from prior. Dictated on workstation # [id number] Dict: 01/25/23 1422 Trans: 01/25/23 1425 [id number] Interpreted by: EMANUEL IVY Electronically signed by: Critical Care Note Critical Care Start Time: 13:30 Stop Time: 14:33 Total Time (minutes) 30 minutes critical care time in the evaluation and management of this patient in moderate respiratory distress with profound hypoxia. Time includes initial evaluation and management of hypoxia with supplemental oxygenation, review of past medical records, review and interpretation of current labs, EKG and chest x-ray. Discussion with hospitalist as well as cardiology due to increased troponin. Departure Communication (Admissions) Time/Spoke to Admitting Phy: 14:[address] Lloyd - Hospitalist on for Dr Romo; accepts to ICU discussed with Dr Barrett (Home Care Nurse) Impression Primary Impression: Acute respiratory failure Qualified Codes: J96.00 - Acute respiratory failure, unspecified whether with hypoxia or hypercapnia Additional Impressions: History of lung cancer Elevated troponin Disposition: ADMITTED INPATIENT Condition: Critical Admissions Decision to Admit Reason: Admit from ER (General) Decision to Admit/Date: Jan 25, 2023 Time/Decision to Admit Time: 14:33 Departure-Patient Inst. Referrals: AJ ROMO MD (PCP/Family) Primary Care Physician Copy Copies To 1: AJ ROMO MD, KATHRYN M MD Jan 25, 2023 13:43
[2023-01-25 13:50] LABS: ABG BASE EXCESS 0.5 MMOL/L (-2.5-2.5); ABG OXYGEN SATURATION 99 % (94-100); ABG PCO2 50 MMHG (35-45); ABG PO2 141 MMHG (79-93)
[2023-01-25 13:53] LABS: ABG PH 7.33 (7.37-7.43); PATIENT TEMP 38; VENTILATOR NO
[2023-01-25 13:59] LABS: BASOPHILS % (AUTO) 1 % (0-10); EOSINOPHILS # (AUTO) 0.2 10^3/uL (0.0-0.3); EOSINOPHILS % (AUTO) 4 % (0-10); HEMATOCRIT 38 % (35-52); HEMOGLOBIN 12.3 g/dL (11.5-16.0); LYMPHOCYTES # (AUTO) 0.9 10^3/uL (1.0-4.0); LYMPHOCYTES % (AUTO) 20 % (12-44); MEAN CORPUSCULAR HEMOGLOBIN 29 pg (25-34); MEAN CORPUSCULAR HGB CONC 33 g/dL (32-36); MEAN CORPUSCULAR VOLUME 89 fL (80-99); MEAN PLATELET VOLUME 8.4 fL (9.0-12.2); MONOCYTES # (AUTO) 0.3 10^3/uL (0.0-1.0); MONOCYTES % (AUTO) 8 % (0-12); NEUTROPHILS # (AUTO) 2.9 10^3/uL (1.8-7.8); NEUTROPHILS % (AUTO) 67 % (42-75); PLATELET COUNT 278 10^3/uL (130-400); WHITE BLOOD COUNT 4.3 10^3/uL (4.3-11.0)
[2023-01-25 14:08] LABS: ALBUMIN 3.8 GM/DL (3.2-4.5); POTASSIUM 3.1 MMOL/L (3.6-5.0)
[2023-01-25 14:09] LABS: CALCIUM 8.6 MG/DL (8.5-10.1); INR 1.1 (0.8-1.4); PROTHROMBIN TIME PATIENT 14.6 SEC (12.2-14.7)
[2023-01-25 14:10] VITALS: BP 114/83
[2023-01-25 14:11] LABS: TOTAL PROTEIN 7.1 GM/DL (6.4-8.2)
[2023-01-25 14:12] LABS: ABG BASE EXCESS 1.1 MMOL/L (-2.5-2.5); ABG OXYGEN SATURATION 97 % (94-100); ABG PCO2 44 MMHG (35-45); ABG PH 7.38 (7.37-7.43); ABG PO2 80 MMHG (79-93); ABG TCO2 26.9 MMOL/L (21.0-31.0); ALLENS TEST POSITIVE; INSPIRED O2 30%; PATIENT TEMP 37; VENTILATOR NO
[2023-01-25 14:12] LABS: BILIRUBIN,TOTAL 0.4 MG/DL (0.1-1.0)
[2023-01-25 14:14] LABS: CREATININE SERUM 0.88 MG/DL (0.60-1.30)
--- NOTE | 2023-01-25 14:25 | Diagnostic Imaging Report ---
INDICATION: Shortness of breath, hypoxia. COMPARISON: 12/04/2021. FINDINGS: Severe COPD. There is a chronic finding noted. There is some linear scarring in the left upper lobe chronic. No acute consolidation. Rightward convexity thoracic scoliotic curvature chronic. Right IJ catheter in the mid SVC chronic. No effusion or pneumothorax. IMPRESSION: Severe chronic lung disease unchanged from prior. Dictated by: Dictated on workstation # [id number]
[2023-01-25] MEDS ORDERED: fentaNYL INJ 100 MCG/2 ML AMP IVP ONE (14:45)
[2023-01-25] MEDS ORDERED: RT-ALBUTEROL SULF 2.5 MG/3 ML PRE-MIX VIAL INH ONE (14:45)
[2023-01-25] MEDS ORDERED: methylPREDNISolone 125 MG (Solu-MEDROL) VIAL IVP ONE (14:45)
[2023-01-25] MEDS ORDERED: NS 100 ML (IVPB) BAG IV ONE (15:45)
[2023-01-25] MEDS ORDERED: IOHEXOL 350 MG/ML 100 ML (OMNIPAQUE 350) VIAL IV ONE (15:45)
[2023-01-25] MEDS ORDERED: HOLD METFORMIN - RECEIVED CONTRAST 20 ML VIAL IV SCH (15:45)
[2023-01-25 15:53] VITALS: BP 186/90
--- NOTE | 2023-01-25 15:54 | Diagnostic Imaging Report ---
Indication: History of lung cancer, now with shortness of breath. Findings: There are no intraluminal pulmonary arterial filling defects. There were no findings of pulmonary arterial embolus. Thoracic aorta atherosclerotic but patent, nonaneurysmal and nonacute. There is some scarring in the left upper lobe laterally, some generalized air trapping and features of COPD. No consolidating pneumonia. No findings felt suggestive of pulmonary edema. There is some thickening of the airways perihilar, which may reflect bronchitis or reactive airway disease. Findings in the lungs very similar to the comparison study. Mild right hilar adenopathy unchanged with the largest nodule posteriorly 1.7 x 1.2 cm. Largest left hilar node superiorly 1.3 x 1.3 cm. No acute chest wall pathology. No pleural or pericardial effusion. Upper abdomen shows unchanged right greater than left bilateral adrenal masses with areas of negative Hounsfield units presumed fat-containing and owing to adenomas. The right 3 cm, the left 2 cm. Visible upper abdomen appeared nonacute with unruptured atherosclerotic abdominal aortic aneurysm stable where visualized. Impression: No lung mass and left upper lobe scarring, chronic air trapping and thickening of the central airways without consolidating pneumonia, some mild hilar adenopathy stable, negative for PE or acute aortic pathology with diffuse atherosclerotic disease stable. Bilateral fat-containing adrenal masses unchanged. Unruptured abdominal aortic aneurysm stable where visualized. Dictated by: Dictated on workstation # [id number]
[2023-01-25] MEDS ORDERED: diphenhydrAMINE 25 MG TAB (BENADRYL) PO PRN (16:00)
[2023-01-25] MEDS ORDERED: cloNIDine 0.1 MG (CATAPRES) TAB PO PRN (16:00)
[2023-01-25] MEDS ORDERED: LIDOCAINE UROJET 2% GEL 10 ML PKG TOP ONE (16:00)
[2023-01-25] MEDS ORDERED: MILK OF MAGNESIA 400 MG/5 ML 30 ML UDC PO PRN (16:00)
[2023-01-25] MEDS ORDERED: ANTACID SUSP 30 ML UDC (MYLANTA) PO PRN (16:00)
[2023-01-25] MEDS ORDERED: BISACODYL 10 MG SUPP (DULCOLAX) PR PRN (16:00)
[2023-01-25] MEDS ORDERED: ONDANSETRON 4 MG (ZOFRAN) ORAL DISSOLVE TAB PO PRN (16:00)
[2023-01-25] MEDS ORDERED: NS IV 500 ML 500 ML IV PRN (16:00)
[2023-01-25] MEDS ORDERED: diphenhydrAMINE 50 MG/ML INJ (BENADRYL) IVP PRN (16:00)
[2023-01-25] MEDS ORDERED: LACTULOSE SYRUP 10GM/15ML (ENULOSE) 30ML UDC PO PRN (16:00)
[2023-01-25] MEDS ORDERED: RT-ALBUTEROL/IPRATROPIUM 3 ML (DUONEB) VIAL INH PRN (16:00)
[2023-01-25] MEDS ORDERED: ONDANSETRON 4 MG/2 ML (SDV) Z0FRAN IV PRN (16:00)
[2023-01-25] MEDS ORDERED: CALCIUM CARBONATE 500 MG (TUMS) TAB.CHEW PO PRN (16:00)
[2023-01-25] MEDS ORDERED: polyethylene glycoL POWDER 17 GM (MIRALAX) PACK PO PRN (16:00)
[2023-01-25] MEDS ORDERED: HYDROmorphone 2 MG/ML VIAL (DILAUDID) IV PRN (16:00)
[2023-01-25] MEDS ORDERED: MELATONIN 3 MG TABLET PO PRN (16:00)
[2023-01-25] MEDS ORDERED: DexMEDEtomidine 250 ML DRIP 250 ML IV SCH (16:00)
[2023-01-25] MEDS ORDERED: ACETAMINOPHEN 325 MG TABLET PO PRN (16:00)
[2023-01-25] MEDS ORDERED: LORazepam 0.5 MG (ATIVAN) TABLET PO PRN (16:00)
[2023-01-25] MEDS ORDERED: guaiFENesin/CODEINE (ROBITUSSIN AC) 10ML UDC PO PRN (16:15)
--- NOTE | 2023-01-25 16:18 | Tele-ICU Consult ---
History of Present Illness History of Present Illness Date Seen by Provider: Jan 25, 2023 Time Seen by Provider: 16:18 Date of Admission History of Present Illness (Tele-ICU Physician , consultation as per request of PCP Service provided via interactive audio and video [email or web address] E-CARE system to a patient admitted to ICU bed in [facility]. Available chart/ vitals / labs / Images reviewed H&P is from ER notes Patient's information available about PMH, Shx, Fhx allergy reviewed inEMR. ROS as per chart and RN report Now in ICU, hemodynamically stable Video assessment done using teleICU camera, rest of exam as per RN Discussed with RN. Hospital course: A/P Acute on chronic resp failure due to AECOPD - CTA - neg for PE , no PNA - placed on BIPAP in ER - on arrival to ICU on NC , but still increased WOB - monitor - NIPPV prn AECOPD - steroids IV - nebs Cough - ? URTI - viral panel NEG - no PNA on CTA - cough suppressants , follow closely off ABX COPD with Emphysema current every day smoker - ? needs O2 at home Hyponatremia - mild, chronic Lines : peripg , (Central Line Necessity Reviewed) Tao: void OG: Nutrition: Analgesia: Anxiety/ delirium VTE Prophylaxis: kallie Stress Ulcer Prophylaxis: ppi Glycemic Control: Plans in collaboration with bedside consultants and IM MDs. Discussed with RN to reach out if any questions or concerns A total of _20 minutes of critical care time was devoted to this patient today, required to treat and/or prevent further deterioration of critical care co ndition ( as above ) . I am remotely monitoring this patient from another state. I am unable to do the bedside exam, and history/physical and pertinent information is taken from other notes in the computer and bedside staff. . Allergies and Home Medications Allergies Coded Allergies: codeine (Verified Allergy, Unknown, 11/15/07) Home Medications Alprazolam 0.5 Mg Tablet, 0.5 MG PO 0700,1300, (Reported) Calcium Carbonate 500 Mg Calcium (1250 Mg) Tab.chew, 500 MG PO BID, (Reported) Cefdinir 300 Mg Capsule, 300 MG PO BID Prescribed by: AJ LIND on 12/04/22 0903 Cholecalciferol (Vitamin D3) 125 Mcg (5000 Unit) Capsule, 125 MCG PO DAILY, (Reported) Dexamethasone 2 Mg Tablet, 2 MG PO DAILY Prescribed by: AJ LIND on 12/04/22 0903 Folic Acid 1 Mg Tablet, 1 MG PO 1300, (Reported) Furosemide 20 Mg Tablet, 20 MG PO DAILY, (Reported) Melatonin 5 Mg Tablet, 5 MG PO HS PRN for SLEEP, (Reported) Metoprolol Tartrate 100 Mg Tablet, 100 MG PO 1300, (Reported) Pantoprazole Sodium 40 Mg Tablet.dr, 40 MG PO 1300, (Reported) Pembrolizumab 100 Mg/4 Ml (25 Mg/Ml) Vial, 200 MG IV EVERY 3 WEEKS, (Reported) Pravastatin Sodium 20 Mg Tablet, 20 MG PO HS, (Reported) Tramadol HCl 50 Mg Tablet, 100 MG PO DAILY, (Reported) TAKES 2 (50MG) TABS Zoledronic Acid 4 Mg Vial, 3 MG IV EVERY 6 WEEKS, (Reported) Past Medical/Social/Family Hx Patient Social History Tobacco Use?: Yes Tobacco type used: Cigarettes Smoking Status: Current Everyday Smoker Smokeless Tobacco Frequency: Never a User Use of E-Cig and/or Vaping dev: No E-Cig and/or Vaping Freq: Never a User Substance use?: No Alcohol Use?: No Pt stated abuse/neglect: No Immunizations Up To Date First/Initial COVID19 Vaccinat: 2020 Second COVID19 Vaccination Jm: 2020 Tetanus Booster (TDap): Unknown Date of Pneumonia Vaccine: Aug 18, 2001 Current Status status: No status: No Advance Directives: No Communicates: Verbally Primary Language: Nauruan Preferred Spoken Language: Nauruan Is interpretation needed?: No Sensory deficits: Vision impairment Implanted or Applied Medical D: None Family Medical History Family Hx: SOCIAL HISTORY: -SMOKED 2 PPD, NOW 1/2 PPD -ETOH -DRUGS Review of Systems Constitutional: see HPI Focused Exam Lactate Level 01/25/23 13:35: Lactic Acid Level 1.02 Height, Weight, BMI Height: '" Weight: lbs. oz. kg; 21.92 BMI Method: Lactic Acid Level Laboratory Tests Test 01/25/23 13:35 Lactic Acid Level 1.02 MMOL/L (0.50-2.00) Exam Exam Patient acknowledged, consented, and participated in this virtual visit which was conducted using real time audio/video Vital Signs Date Time Temp Pulse Resp B/P (MAP) Pulse Ox O2 Delivery O2 Flow Rate FiO2 01/25/23 16:08 Nasal Cannula 3.00 95 01/25/23 16:06 99 24 132/75 (94) 95 Nasal Cannula 3.00 01/25/23 16:00 102 01/25/23 15:53 102 94 30 01/25/23 14:10 102 27 94 30.00 01/25/23 13:30 Room Air 01/25/23 13:30 38.0 112 20 186/90 (122) Room Air Height & Weight Height: '" Weight: lbs. oz. kg; 21.92 BMI Method: General Appearance: WD/WN Capillary Refill: Less Than 3 Seconds Gastrointestinal: non tender, soft Results Lab Laboratory Tests 01/25/23 13:35 Assessment/Plan Assessment/Plan 1 HERMELINDO GUZMAN MD Jan 25, 2023 16:18
[2023-01-25] MEDS: inSUlin ASPART (NovoLOG) 1 UNIT/0.01 ML (CHARGE PER UNIT) SC SCH ×2 (16:56→21:51)
[2023-01-25] MEDS: ENOXAPARIN 40 MG/0.4 ML (LOVENOX) SYR SC SCH (16:56)
[2023-01-25] MEDS: DOXYCYCLINE INJECTION 100 MG in NS (IVPB) 100 ML IV SCH (16:56)
--- NOTE | 2023-01-25 17:05 | History & Physical ---
History of Present Illness HPI/Chief Complaint CC: Acute hypoxic hypercapneic respiratory failure HPI: This is a 67yoWF clinic patient of Dr Romo who has a h/o lung cancer on [place] by Dr Knott who presented to the ER with acute respiratory distress and required biPAP placement along with IV steroids and O2. No evidence of any PNA and no PE on CTA chest considering she just returned from a 14 day trip to [place] and other stops along the way. She is still a bit tachypneic so biPAP may need to be used again tonight but currently she is on hi-katrina O2 NC. Labs reviewed and will be monitored closely due to high risk for intubation. Smoking cessation counseled. Source: patient Exam Limitations: clinical condition Date Seen 01/25/23 Time Seen by a Provider: 18:00 Attending Physician Jamila Romo MD PCP Admitting Physician: Paulette Lloyd DO Attending Physician: Paulette Lloyd DO Referring Physician Date of Admission Jan 25, 2023 at 14:44 Home Medications & Allergies Home Medications Reviewed patient Home Medication Reconciliation performed by pharmacy medication reconciliations network operations technician and/or nursing. Patients Allergies have been reviewed. Allergies Allergies Coded Allergies codeine (Verified Allergy, Unknown, 11/15/07) Past Qgzzvks-Ftrsjz-Chihlb Hx Past Med/Social Hx: Reviewed Nursing Past Med/Soc Hx, Reviewed and Corrections made Patient Social History Marrital Status: Employed/Student: employed Alcohol Use: Occasionally Uses Smoking Status: Current Everyday Smoker Type Used: Cigarettes Recent Hopitalizations: No Immunizations Up To Date Date of Pneumonia Vaccine: Aug 18, 2001 Seasonal Allergies Seasonal Allergies: No Past Medical History Surgeries: Section, Orthopedic, Vascular Surgery Respiratory: COPD Cardiac: High Cholesterol, Hypertension, Peripheral Vascular Reproductive: No Endocrine: Hypothyroidsim Cancer: Lung Did You Recieve Any Treatments: Yes What Type of Treatment Did You: Chemotherapy History of Blood Disorders: No Family History Hypertension SOCIAL HISTORY: -SMOKED 2 PPD, NOW 1/2 PPD -ETOH -DRUGS Review of Systems Constitutional: see HPI, dizziness Respiratory: dyspnea on exertion, short of breath Physical Exam Physical Exam Vital Signs Vital Signs - First Documented 01/25/23 15:53 FiO2 30 Capillary Refill : Less Than 3 Seconds Height, Weight, BMI Height: '" Weight: lbs. oz. kg; 21.92 BMI Method: General Appearance: WD/WN, Anxious, Chronically ill, Mild Distress Eyes: Bilateral Eye Normal Inspection, Bilateral Eye PERRL, Bilateral Eye EOMI HEENT: PERRL/EOMI, Normal ENT Inspection, Pharynx Normal Neck: Full Range of Motion, Normal Inspection, Non Tender, Supple, Carotid Bruit Respiratory: Chest Non Tender, No Respiratory Distress, Accessory Muscle Use, Decreased Breath Sounds Cardiovascular: Regular Rate, Rhythm, No Edema, No Gallop, No JVD, No Murmur, Normal Peripheral Pulses Gastrointestinal: Normal Bowel Sounds, No Organomegaly, No Pulsatile Mass, Non Tender, Soft Back: Normal Inspection, No CVA Tenderness, No Vertebral Tenderness Extremity: Normal Capillary Refill, Normal Inspection, Normal Range of Motion, Non Tender, No Calf Tenderness, No Pedal Edema Neurologic/Psychiatric: Alert, Oriented x3, No Motor/Sensory Deficits, Normal Mood/Affect Skin: Normal Color, Warm/Dry Lymphatic: No Adenopathy Results Results/Procedures Labs Laboratory Tests 01/25/23 13:35 Patient resulted labs reviewed. Assessment/Plan Admission Diagnosis Assessment: Acute hypoxic hypercapneic respiratory failure Bronchitis Lung cancer on immunotherapy AECOPD Smoker Hypothyroidism HTN HLP Plan: IV steroids BiPAP O2 Doxy IV Admission Status: Inpatient Order (span 2 midnights) Reason for Inpatient Admission: resp failure PAULETTE LLOYD DO Jan 25, 2023 17:05
[2023-01-25] MEDS: RT-ALBUTEROL/IPRATROPIUM 3 ML (DUONEB) VIAL INH SCH ×2 (19:12→22:10)
[2023-01-25] MEDS: DOCUSATE SODIUM 100 MG (COLACE) CAP PO SCH (20:11)
[2023-01-25] MEDS: MONTELUKAST 10 MG (SINGULAIR) TAB PO SCH (20:12)
[2023-01-25] MEDS: SENNOSIDES 8.6 MG (SENOKOT) TAB PO SCH (20:12)
[2023-01-26] MEDS: RT-ALBUTEROL/IPRATROPIUM 3 ML (DUONEB) VIAL INH SCH ×4 (02:41→15:11)
[2023-01-26 04:29] LABS: BASOPHILS % (AUTO) 0 % (0-10); EOSINOPHILS % (AUTO) 0 % (0-10); HEMATOCRIT 36 % (35-52); HEMOGLOBIN 11.9 g/dL (11.5-16.0); LYMPHOCYTES # (AUTO) 0.6 10^3/uL (1.0-4.0); LYMPHOCYTES % (AUTO) 22 % (12-44); MEAN CORPUSCULAR HEMOGLOBIN 29 pg (25-34); MEAN CORPUSCULAR HGB CONC 33 g/dL (32-36); MEAN CORPUSCULAR VOLUME 88 fL (80-99); MEAN PLATELET VOLUME 8.3 fL (9.0-12.2); MONOCYTES # (AUTO) 0.2 10^3/uL (0.0-1.0); MONOCYTES % (AUTO) 6 % (0-12); NEUTROPHILS % (AUTO) 72 % (42-75); PLATELET COUNT 305 10^3/uL (130-400); WHITE BLOOD COUNT 2.7 10^3/uL (4.3-11.0)
[2023-01-26 04:50] LABS: ALBUMIN 3.7 GM/DL (3.2-4.5); BILIRUBIN,TOTAL 0.3 MG/DL (0.1-1.0); CALCIUM 8.3 MG/DL (8.5-10.1); CREATININE SERUM 0.91 MG/DL (0.60-1.30); MAGNESIUM 2.2 MG/DL (1.6-2.4); PHOSPHORUS 2.5 MG/DL (2.3-4.7); POTASSIUM 2.9 MMOL/L (3.6-5.0); TOTAL PROTEIN 6.9 GM/DL (6.4-8.2)
[2023-01-26] MEDS: inSUlin ASPART (NovoLOG) 1 UNIT/0.01 ML (CHARGE PER UNIT) SC SCH ×4 (05:15→20:03)
[2023-01-26] MEDS ORDERED: POTASSIUM CL 10MEQ/50ML IVPB 400 ML IV ONE (05:23)
[2023-01-26] MEDS: DOXYCYCLINE INJECTION 100 MG in NS (IVPB) 100 ML IV SCH ×2 (05:28→17:36)
[2023-01-26] MEDS: POTASSIUM CL 10MEQ/50ML IVPB 50 ML IV SCH ×6 (05:30→08:37)
[2023-01-26] MEDS ORDERED: POTASSIUM CL 10MEQ/50ML IVPB 50 ML IV SCH (06:00)
[2023-01-26] MEDS ORDERED: MAGNESIUM 1 GM/100 ML IVPB 100 ML IV SCH (06:00)
[2023-01-26] MEDS ORDERED: KCL 20 MEQ TAB (K-DUR) PO SCH (06:00)
--- NOTE | 2023-01-26 06:32 | Progress Note ---
Subjective Date Seen by a Provider: Jan 26, 2023 Time Seen by a Provider: 09:00 Subjective/Events-last exam Patient doing much better Still a bit tachypneic when she is talking Anxiety drives the tachypnea Did not sleep well last night Repeat chest x-ray showed clear infiltrate so we will add cefepime to the doxycycline which was empirically initiated yesterday for bronchitis and COPD exacerbation properties We will ambulate today Labs reviewed Check meds and labs Review of Systems General: Fatigue, Malaise Focused Exam Lactate Level 01/25/23 13:35: Lactic Acid Level 1.02 Objective Exam Last Set of Vital Signs Vital Signs Date Time Temp Pulse Resp B/P (MAP) Pulse Ox O2 Delivery O2 Flow Rate FiO2 01/26/23 06:00 85 21 115/73 (87) 97 Nasal Cannula 1.00 01/26/23 04:27 36.2 01/25/23 16:08 95 Capillary Refill : Less Than 3 Seconds I&O Intake and Output 01/25/23 23:59 Intake Total 2000 ml Balance 2000 ml Intake Oral 1000 ml IV Total 1000 ml # Voids 5 General: Alert, Oriented X3, Cooperative, No Acute Distress Lungs: Other (diminshed) Heart: Regular Rate, Normal S1, Normal S2, No Murmurs Psych/Mental Status: Mental Status NL, Mood NL Results Lab Laboratory Tests 01/25/23 13:35: White Blood Count 4.3, Red Blood Count 4.25, Hemoglobin 12.3, Hematocrit 38, Mean Corpuscular Volume 89, Mean Corpuscular Hemoglobin 29, Mean Corpuscular Hemoglobin Concent 33, Red Cell Distribution Width 13.6, Platelet Count 278, Mean Platelet Volume 8.4L, Immature Granulocyte % (Auto) 0, Neutrophils (%) (Auto) 67, Lymphocytes (%) (Auto) 20, Monocytes (%) (Auto) 8, Eosinophils (%) (Auto) 4, Basophils (%) (Auto) 1, Neutrophils # (Auto) 2.9, Lymphocytes # (Auto) 0.9L, Monocytes # (Auto) 0.3, Eosinophils # (Auto) 0.2, Basophils # (Auto) 0.0, Immature Granulocyte # (Auto) 0.0, Prothrombin Time 14.6, INR Comment 1.1, Activated Partial Thromboplast Time 41H, D-Dimer 1.64H, Sodium Level 134L, Potassium Level 3.1L, Chloride Level 97L, Carbon Dioxide Level 25, Anion Gap 12, Blood Urea Nitrogen 7, Creatinine 0.88, Estimat Glomerular Filtration Rate 72, BUN/Creatinine Ratio 8, Glucose Level 133H, Lactic Acid Level 1.02, Calcium Level 8.6, Corrected Calcium 8.8, Total Bilirubin 0.4, Aspartate Amino Transf (AST/SGOT) 18, Alanine Aminotransferase (ALT/SGPT) 13, Alkaline Phosphatase 117, Troponin I 0.041H, B-Type Natriuretic Peptide 165.4H, Total Protein 7.1, Albumin 3.8 01/25/23 13:43: Blood Gas Puncture Site UNK, Blood Gas Patient Temperature 38, Arterial Blood pH 7.33*L, Arterial Blood Partial Pressure CO2 50H, Arterial Blood Partial Pressure O2 141H, Arterial Blood HCO3 26, Arterial Blood Total CO2 27.0, Arterial Blood Oxygen Saturation 99, Arterial Blood Base Excess 0.5, John Test UNK, Blood Gas Ventilator Setting NO, Blood Gas Inspired Oxygen UNK 01/25/23 14:03: Blood Gas Puncture Site RIGHT RADIAL, Blood Gas Patient Temperature 37, Arterial Blood pH 7.38, Arterial Blood Partial Pressure CO2 44, Arterial Blood Partial Pressure O2 80, Arterial Blood HCO3 26, Arterial Blood Total CO2 26.9, Arterial Blood Oxygen Saturation 97, Arterial Blood Base Excess 1.1, John Test POSITIVE, Blood Gas Ventilator Setting NO, Blood Gas Inspired Oxygen 30% 01/25/23 14:44: Influenza Type A (RT-PCR) Not Detected, Influenza Type B (RT-PCR) Not Detected, SARS-CoV-2 RNA (RT-PCR) Not Detected 01/25/23 21:22: Glucometer 293H 01/26/23 04:23: White Blood Count 2.7L, Red Blood Count 4.13, Hemoglobin 11.9, Hematocrit 36, Mean Corpuscular Volume 88, Mean Corpuscular Hemoglobin 29, Mean Corpuscular Hemoglobin Concent 33, Red Cell Distribution Width 13.5, Platelet Count 305, M les Platelet Volume 8.3L, Immature Granulocyte % (Auto) 0, Neutrophils (%) (Auto) 72, Lymphocytes (%) (Auto) 22, Monocytes (%) (Auto) 6, Eosinophils (%) (Auto) 0, Basophils (%) (Auto) 0, Neutrophils # (Auto) 2.0, Lymphocytes # (Auto) 0.6L, Monocytes # (Auto) 0.2, Eosinophils # (Auto) 0.0, Basophils # (Auto) 0.0, Immature Granulocyte # (Auto) 0.0, Sodium Level 138, Potassium Level 2.9L, Chloride Level 102, Carbon Dioxide Level 22, Anion Gap 14, Blood Urea Nitrogen 9, Creatinine 0.91, Estimat Glomerular Filtration Rate 70, BUN/Creatinine Ratio 10, Glucose Level 170H, Calcium Level 8.3L, Corrected Calcium 8.5, Phosphorus Level 2.5, Magnesium Level 2.2, Total Bilirubin 0.3, Aspartate Amino Transf (AST/SGOT) 15, Alanine Aminotransferase (ALT/SGPT) 12, Alkaline Phosphatase 112, Total Protein 6.9, Albumin 3.7 Assessment/Plan Assessment/Plan Assess & Plan/Chief Complaint Assessment: Acute hypoxic hypercapneic respiratory failure requiring biPAP Bronchitis with PNA on repeat CXR placed on Doxy initially then added Cefepime today Lung cancer on immunotherapy AECOPD Smoker Hypothyroidism HTN HLP Plan: IV steroids Add Cefepime Move to 4th floor O2 Doxy IV MARCOS IBRAHIM DO Jan 26, 2023 06:32
--- NOTE | 2023-01-26 08:21 | Diagnostic Imaging Report ---
Indication: Chest pain. Time of Exam: 4:12 AM Correlation is made with prior chest one day earlier. Right chest wall port has tip overlying the SVC. There is right convexity thoracic scoliotic curvature. There is minimal infiltrate or atelectasis in the left midlung field. There is linear scarring in the left upper lung field. Right lung is clear. There is no effusion or pneumothorax. IMPRESSION: Patchy infiltrate or atelectasis in the left midlung. Dictated by: Dictated on workstation # [id number]
[2023-01-26] MEDS: ASPIRIN 81 MG CHEW (CHILDREN'S ASA) PO SCH (08:34)
[2023-01-26] MEDS: PANTOPRAZOLE 40 MG (PROTONIX) TAB PO SCH (08:34)
[2023-01-26] MEDS: DOCUSATE SODIUM 100 MG (COLACE) CAP PO SCH ×2 (08:34→20:03)
[2023-01-26] MEDS: SENNOSIDES 8.6 MG (SENOKOT) TAB PO SCH ×2 (08:34→20:03)
--- NOTE | 2023-01-26 10:09 | Consultation-Cardiology ---
HPI-Cardiology Cardiology Consultation Date of Consultation 01/26/23 Date of Admission Time Seen by Provider: 10:04 Indication: Shortness of breath HPI 67-year-old lady with history of lung cancer, COPD. Patient started to have increasing dyspnea. Came to the emergency room, she denied any fever or chills. No palpitation. She was noted to have mild elevation in troponin. On my evaluation she was still short of breath, having some cough, chest x-ray today reported pulmonary infiltrate. Home Medications & Allergies Allergies: Coded Allergies: codeine (Verified Allergy, Unknown, 11/15/07) Home Medication List Reviewed: Yes [id number] Hx Patient Social History Marital Status: Employed/Student: employed Smoking Status: Current Everyday Smoker Type Used: Cigarettes Recent Hopitalizations: No Alcohol Use?: No Immunizations Up To Date Date of Pneumonia Vaccine: Aug 18, 2001 Past Medical History Discussed below Family Medical History Significant Family History: No Pertinent Family Hx, Hypertension Review of Systems-General Review of Systems Constitutional: see HPI, dizziness EENTM: no symptoms reported Respiratory: see HPI, cough, dyspnea on exertion, short of breath Cardiovascular: no symptoms reported Gastrointestinal: no symptoms reported Genitourinary: no symptoms reported Musculoskeletal: no symptoms reported Skin: no symptoms reported Psychiatric/Neurological: No Symptoms Reported, See HPI All Other Systems Reviewed Negative Unless Noted: Yes Reviewed Test Results Reviewed Test Results Lab Laboratory Tests Test 01/25/23 13:35 01/25/23 13:43 01/25/23 14:03 01/25/23 14:44 Range/Units White Blood Count 4.3 4.3-11.0 10^3/uL Red Blood Count 4.25 3.80-5.11 10^6/uL Hemoglobin 12.3 11.5-16.0 g/dL Hematocrit 38 35-52 % Mean Corpuscular Volume 89 80-99 fL Mean Corpuscular Hemoglobin 29 25-34 pg Mean Corpuscular Hemoglobin Concent 33 32-36 g/dL Red Cell Distribution Width 13.6 10.0-14.5 % Platelet Count 278 130-400 10^3/uL Mean Platelet Volume 8.4 L 9.0-12.2 fL Immature Granulocyte % (Auto) 0 % Neutrophils (%) (Auto) 67 42-75 % Lymphocytes (%) (Auto) 20 12-44 % Monocytes (%) (Auto) 8 0-12 % Eosinophils (%) (Auto) 4 0-10 % Basophils (%) (Auto) 1 0-10 % Neutrophils # (Auto) 2.9 1.8-7.8 10^3/uL Lymphocytes # (Auto) 0.9 L 1.0-4.0 10^3/uL Monocytes # (Auto) 0.3 0.0-1.0 10^3/uL Eosinophils # (Auto) 0.2 0.0-0.3 10^3/uL Basophils # (Auto) 0.0 0.0-0.1 10^3/uL Immature Granulocyte # (Auto) 0.0 0.0-0.1 10^3/uL Prothrombin Time 14.6 12.2-14.7 SEC INR Comment 1.1 0.8-1.4 Activated Partial Thromboplast Time 41 H 24-35 SEC D-Dimer 1.64 H 0.00-0.49 UG/ML Sodium Level 134 L 135-145 MMOL/L Potassium Level 3.1 L 3.6-5.0 MMOL/L Chloride Level 97 L 98-107 MMOL/L Carbon Dioxide Level 25 21-32 MMOL/L Anion Gap 12 5-14 MMOL/L Blood Urea Nitrogen 7 7-18 MG/DL Creatinine 0.88 0.60-1.30 MG/DL Estimat Glomerular Filtration Rate 72 BUN/Creatinine Ratio 8 Glucose Level 133 H 70-105 MG/DL Lactic Acid Level 1.02 0.50-2.00 MMOL/L Calcium Level 8.6 8.5-10.1 MG/DL Corrected Calcium 8.8 8.5-10.1 MG/DL Total Bilirubin 0.4 0.1-1.0 MG/DL Aspartate Amino Transf (AST/SGOT) 18 5-34 U/L Alanine Aminotransferase (ALT/SGPT) 13 0-55 U/L Alkaline Phosphatase 117 40-136 U/L Troponin I 0.041 H <0.028 NG/ML B-Type Natriuretic Peptide 165.4 H <100.0 PG/ML Total Protein 7.1 6.4-8.2 GM/DL Albumin 3.8 3.2-4.5 GM/DL Blood Gas Puncture Site UNK RIGHT RADIAL Blood Gas Patient Temperature 38 37 Arterial Blood pH 7.33 *L 7.38 7.37-7.43 Arterial Blood Partial Pressure CO2 50 H 44 35-45 MMHG Arterial Blood Partial Pressure O2 141 H 80 79-93 MMHG Arterial Blood HCO3 26 26 23-27 MMOL/L Arterial Blood Total CO2 27.0 26.9 21.0-31.0 MMOL/L Arterial Blood Oxygen Saturation 99 97 94-100 % Arterial Blood Base Excess 0.5 1.1 -2.5-2.5 MMOL/L John Test UNK POSITIVE Blood Gas Ventilator Setting NO NO Blood Gas Inspired Oxygen UNK 30% Influenza Type A (RT-PCR) Not Detected Not Detecte Influenza Type B (RT-PCR) Not Detected Not Detecte SARS-CoV-2 RNA (RT-PCR) Not Detected Not Detecte Test 01/25/23 21:22 01/26/23 04:23 Range/Units Glucometer 293 H 70-110 MG/DL White Blood Count 2.7 L 4.3-11.0 10^3/uL Red Blood Count 4.13 3.80-5.11 10^6/uL Hemoglobin 11.9 11.5-16.0 g/dL Hematocrit 36 35-52 % Mean Corpuscular Volume 88 80-99 fL Mean Corpuscular Hemoglobin 29 25-34 pg Mean Corpuscular Hemoglobin Concent 33 32-36 g/dL Red Cell Distribution Width 13.5 10.0-14.5 % Platelet Count 305 130-400 10^3/uL Mean Platelet Volume 8.3 L 9.0-12.2 fL Immature Granulocyte % (Auto) 0 % Neutrophils (%) (Auto) 72 42-75 % Lymphocytes (%) (Auto) 22 12-44 % Monocytes (%) (Auto) 6 0-12 % Eosinophils (%) (Auto) 0 0-10 % Basophils (%) (Auto) 0 0-10 % Neutrophils # (Auto) 2.0 1.8-7.8 10^3/uL Lymphocytes # (Auto) 0.6 L 1.0-4.0 10^3/uL Monocytes # (Auto) 0.2 0.0-1.0 10^3/uL Eosinophils # (Auto) 0.0 0.0-0.3 10^3/uL Basophils # (Auto) 0.0 0.0-0.1 10^3/uL Immature Granulocyte # (Auto) 0.0 0.0-0.1 10^3/uL Sodium Level 138 135-145 MMOL/L Potassium Level 2.9 L 3.6-5.0 MMOL/L Chloride Level 102 98-107 MMOL/L Carbon Dioxide Level 22 21-32 MMOL/L Anion Gap 14 5-14 MMOL/L Blood Urea Nitrogen 9 7-18 MG/DL Creatinine 0.91 0.60-1.30 MG/DL Estimat Glomerular Filtration Rate 70 BUN/Creatinine Ratio 10 Glucose Level 170 H 70-105 MG/DL Calcium Level 8.3 L 8.5-10.1 MG/DL Corrected Calcium 8.5 8.5-10.1 MG/DL Phosphorus Level 2.5 2.3-4.7 MG/DL Magnesium Level 2.2 1.6-2.4 MG/DL Total Bilirubin 0.3 0.1-1.0 MG/DL Aspartate Amino Transf (AST/SGOT) 15 5-34 U/L Alanine Aminotransferase (ALT/SGPT) 12 0-55 U/L Alkaline Phosphatase 112 40-136 U/L Troponin I 0.092 H <0.028 NG/ML Total Protein 6.9 6.4-8.2 GM/DL Albumin 3.7 3.2-4.5 GM/DL Physical Exam Physical Exam Vital Signs Vital Signs - First Documented 01/25/23 15:53 FiO2 30 Capillary Refill : Less Than 3 Seconds Height, Weight, BMI Height: '" Weight: lbs. oz. kg; 21.92 BMI Method: General Appearance: WD/WN, Anxious, Chronically ill, Mild Distress Eyes: Bilateral Eye Normal Inspection, Bilateral Eye PERRL, Bilateral Eye EOMI HEENT: PERRL/EOMI, Normal ENT Inspection, Pharynx Normal Neck: Full Range of Motion, Normal Inspection, Non Tender, Supple, Carotid Bruit Respiratory: Chest Non Tender, No Respiratory Distress, Accessory Muscle Use, Decreased Breath Sounds Cardiovascular: Regular Rate, Rhythm, No Edema, No Gallop, No JVD, No Murmur, Normal Peripheral Pulses Gastrointestinal: Normal Bowel Sounds, No Organomegaly, No Pulsatile Mass, Non Tender, Soft Back: Normal Inspection, No CVA Tenderness, No Vertebral Tenderness Extremity: Normal Capillary Refill, Normal Inspection, Normal Range of Motion, Non Tender, No Calf Tenderness, No Pedal Edema Neurologic/Psychiatric: Alert, Oriented x3, No Motor/Sensory Deficits, Normal Mood/Affect Skin: Normal Color, Warm/Dry Lymphatic: No Adenopathy A/P-Cardiology Admission Diagnosis Acute respiratory failure Acute exacerbation of COPD Pneumonia Type II MT Assessment/Plan Acute respiratory insufficiency. Was on BiPAP Still having significant shortness of breath. Acute exacerbation of COPD and pneumonia Receiving steroids and antibiotics. Continue to monitor History of poorly differentiated adenocarcinoma, followed by Dr. Corrales Mild elevation in troponin, type II MT, probably secondary to hypoxemia and respiratory failure Underlying coronary artery disease cannot be entirely excluded. Conservative management is recommended Tobaccoism, educated on smoking cessation Hypertension, monitor blood pressure. MARBIN GUTIÉRREZ MD Jan 26, 2023 10:09
[2023-01-26] MEDS: CEFEPIME INJECTION 1,000 MG in NS (IVPB) 50 ML IV SCH ×2 (10:23→20:03)
[2023-01-26] MEDS: guaiFENesin/DM (ROBITUSSIN DM) 10 ML UDC PO PRN ×2 (10:23→20:03)
[2023-01-26] MEDS: FLUTICASONE/VILANTEROL 100 MCG 14'S (BREO) IH SCH (11:43)
[2023-01-26] MEDS: LORazepam INJ 2 MG/ML (ATIVAN) VIAL IVP PRN ×2 (11:56→23:33)
[2023-01-26] MEDS: ENOXAPARIN 40 MG/0.4 ML (LOVENOX) SYR SC SCH (15:46)
[2023-01-26 16:00] VITALS: BP 118/75
[2023-01-26 19:28] VITALS: BP 136/81
[2023-01-26] MEDS: ALPRAZolam 0.25 MG (XANAX) TAB PO PRN (20:03)
[2023-01-26] MEDS: MONTELUKAST 10 MG (SINGULAIR) TAB PO SCH (20:03)
[2023-01-26 23:25] VITALS: BP 139/74
[2023-01-27 03:53] VITALS: BP 129/77
[2023-01-27 04:41] LABS: BASOPHILS % (AUTO) 0 % (0-10); EOSINOPHILS % (AUTO) 0 % (0-10); HEMATOCRIT 36 % (35-52); HEMOGLOBIN 11.6 g/dL (11.5-16.0); LYMPHOCYTES # (AUTO) 0.7 10^3/uL (1.0-4.0); LYMPHOCYTES % (AUTO) 12 % (12-44); MEAN CORPUSCULAR HEMOGLOBIN 29 pg (25-34); MEAN CORPUSCULAR HGB CONC 32 g/dL (32-36); MEAN CORPUSCULAR VOLUME 90 fL (80-99); MEAN PLATELET VOLUME 8.5 fL (9.0-12.2); MONOCYTES # (AUTO) 0.2 10^3/uL (0.0-1.0); MONOCYTES % (AUTO) 4 % (0-12); NEUTROPHILS # (AUTO) 4.4 10^3/uL (1.8-7.8); NEUTROPHILS % (AUTO) 83 % (42-75); PLATELET COUNT 305 10^3/uL (130-400); WHITE BLOOD COUNT 5.3 10^3/uL (4.3-11.0)
[2023-01-27 04:50] LABS: ALBUMIN 3.5 GM/DL (3.2-4.5); POTASSIUM 4.2 MMOL/L (3.6-5.0)
[2023-01-27 04:51] LABS: CALCIUM 8.5 MG/DL (8.5-10.1)
[2023-01-27 04:52] LABS: TOTAL PROTEIN 6.6 GM/DL (6.4-8.2)
[2023-01-27 04:54] LABS: BILIRUBIN,TOTAL 0.2 MG/DL (0.1-1.0)
[2023-01-27 04:56] LABS: CREATININE SERUM 0.85 MG/DL (0.60-1.30)
[2023-01-27 04:59] LABS: MAGNESIUM 2.2 MG/DL (1.6-2.4)
[2023-01-27] MEDS: inSUlin ASPART (NovoLOG) 1 UNIT/0.01 ML (CHARGE PER UNIT) SC SCH ×4 (05:16→20:40)
[2023-01-27] MEDS: DOXYCYCLINE INJECTION 100 MG in NS (IVPB) 100 ML IV SCH ×2 (05:37→18:21)
--- NOTE | 2023-01-27 05:52 | Progress Note ---
Subjective Date Seen by a Provider: Jan 27, 2023 Time Seen by a Provider: 09:00 Subjective/Events-last exam Patient not feeling well Coughing a lot Wheezing noted and tachypnea noted Moving to ICU and ordering biPAP CXR and ABG ordered Review of Systems Pulmonary: Dyspnea, Cough Focused Exam Lactate Level 01/25/23 13:35: Lactic Acid Level 1.02 Objective Exam Last Set of Vital Signs Vital Signs Date Time Temp Pulse Resp B/P (MAP) Pulse Ox O2 Delivery O2 Flow Rate FiO2 01/27/23 03:53 37.0 103 18 129/77 (94) 97 Nasal Cannula 2.50 01/25/23 16:08 95 Capillary Refill : Less Than 3 Seconds I&O Intake and Output 01/27/23 00:00 Intake Total 1475 ml Output Total 500 ml Balance 975 ml Intake Oral 825 ml IV Total 650 ml Output Urine Total 500 ml # Voids 5 General: Alert, Oriented X3, Cooperative, Mild Distress (tachypnea) Lungs: Other (wheezing all guy) Heart: Regular Rate Psych/Mental Status: Mental Status NL Results Lab Laboratory Tests 01/26/23 11:08: Glucometer 175H 01/26/23 19:47: Glucometer 93 01/27/23 04:30: White Blood Count 5.3, Red Blood Count 4.03, Hemoglobin 11.6, Hematocrit 36, Mean Corpuscular Volume 90, Mean Corpuscular Hemoglobin 29, Mean Corpuscular Hemoglobin Concent 32, Red Cell Distribution Width 13.8, Platelet Count 305, Mean Platelet Volume 8.5L, Immature Granulocyte % (Auto) 1, Neutrophils (%) (Auto) 83H, Lymphocytes (%) (Auto) 12, Monocytes (%) (Auto) 4, Eosinophils (%) (Auto) 0, Basophils (%) (Auto) 0, Neutrophils # (Auto) 4.4, Lymphocytes # (Auto) 0.7L, Monocytes # (Auto) 0.2, Eosinophils # (Auto) 0.0, Basophils # (Auto) 0.0, Immature Granulocyte # (Auto) 0.0, Sodium Level 143, Potassium Level 4.2, Chloride Level 109H, Carbon Dioxide Level 25, Anion Gap 9, Blood Urea Nitrogen 9, Creatinine 0.85, Estimat Glomerular Filtration Rate 76, BUN/Creatinine Ratio 11, Glucose Level 138H, Calcium Level 8.5, Corrected Calcium 8.9, Magnesium Level 2.2, Total Bilirubin 0.2, Aspartate Amino Transf (AST/SGOT) 17, Alanine Aminotransferase (ALT/SGPT) 15, Alkaline Phosphatase 99, Total Protein 6.6, Albumin 3.5 Microbiology 01/25/23 MRSA Screen - Final, Complete MRSA not isolated 01/25/23 Blood Culture - Preliminary, Resulted No growth Assessment/Plan Assessment/Plan Assess & Plan/Chief Complaint Assessment: Acute hypoxic hypercapneic respiratory failure requiring biPAP then DC and moved to floor but now in more respiratory distress so moved back to ICU 01/27/23 Bronchitis with PNA on repeat CXR placed on Doxy initially then added Cefepime Friday Lung cancer on immunotherapy AECOPD Smoker Hypothyroidism HTN HLP Plan: IV steroids Maintain Cefepime Move back to ICU pending resp failure O2 Doxy IV MARCOS IBRAHIM DO Jan 27, 2023 05:52
[2023-01-27 07:28] VITALS: BP 154/84
[2023-01-27] MEDS: RT-ALBUTEROL/IPRATROPIUM 3 ML (DUONEB) VIAL INH SCH ×2 (07:51→20:33)
[2023-01-27] MEDS: FLUTICASONE/VILANTEROL 100 MCG 14'S (BREO) IH SCH (07:51)
[2023-01-27] MEDS: CEFEPIME INJECTION 1,000 MG in NS (IVPB) 50 ML IV SCH ×3 (08:17→23:57)
[2023-01-27] MEDS: PANTOPRAZOLE 40 MG (PROTONIX) TAB PO SCH (08:17)
[2023-01-27] MEDS: ASPIRIN 81 MG CHEW (CHILDREN'S ASA) PO SCH (08:17)
[2023-01-27] MEDS: ALPRAZolam 0.25 MG (XANAX) TAB PO PRN ×2 (08:17→20:44)
[2023-01-27] MEDS: DOCUSATE SODIUM 100 MG (COLACE) CAP PO SCH ×2 (08:23→19:17)
[2023-01-27] MEDS: SENNOSIDES 8.6 MG (SENOKOT) TAB PO SCH ×2 (08:23→19:17)
[2023-01-27] MEDS: guaiFENesin/DM (ROBITUSSIN DM) 10 ML UDC PO PRN ×2 (10:16→19:21)
[2023-01-27] MEDS ORDERED: NS IV 500 ML 500 ML IV PRN (10:45)
--- NOTE | 2023-01-27 10:47 | Diagnostic Imaging Report ---
INDICATION: Pneumonia. Comparison is made with prior exam of 01/26/2023. FINDINGS: There is right convexity thoracic scoliosis. The heart size is normal. Lungs are clear. No pleural effusion or thorax. Mediastinum is unremarkable. Enotgp-S-Gyrc catheter overlies right hemithorax and its tip in superior vena cava. IMPRESSION: No acute cardiopulmonary abnormality. Dictated by: Dictated on workstation # [id number]
[2023-01-27] MEDS: RT-BUDESONIDE NEBS 0.5 MG/2ML (PULMICORT) AMP INH SCH ×2 (11:19→20:33)
[2023-01-27 11:31] LABS: ABG BASE EXCESS -0.1 MMOL/L (-2.5-2.5); ABG OXYGEN SATURATION 97 % (94-100); ABG PCO2 40 MMHG (35-45); ABG PO2 83 MMHG (79-93); ABG TCO2 25.3 MMOL/L (21.0-31.0); ALLENS TEST YES-POS
[2023-01-27 11:32] LABS: INSPIRED O2 2; PATIENT TEMP 37; VENTILATOR NO
[2023-01-27] MEDS: LORazepam INJ 2 MG/ML (ATIVAN) VIAL IVP PRN ×2 (11:58→21:07)
--- NOTE | 2023-01-27 12:35 | Physical Therapy Progress Note ---
Therapy Progress Note Patient transferred to ICU from [address] [place] [id number]. PT will require new orders to initiate skilled therapy intervention. ADONIS HANSEN PT Jan 27, 2023 12:35
--- NOTE | 2023-01-27 15:55 | Tele-ICU Progress Note ---
Subjective Date Seen by a Provider: Jan 27, 2023 Time Seen by a Provider: 15:55 Subjective/Events-last exam (Tele-ICU Physician , Progress Note ) Service provided via interactive audio and video telecommunications E-CARE system to a patient admitted to ICU bed in [facility]. Patient is seen today due to persistent need of ICU care Available chart/ vitals / labs / Images reviewed Video assessment done using teleICU camera, rest of exam as per RN Discussed with RN Events overnight : Afebrile hemodynamically stable Respiratory - I/O = Drips: Pressors- no Hospital course: (01/25) 67F Admitted for severe COPD, lung cancer, hypercarbia. Bipap--improved prior to ICU (01/27) Readmit for labored breathing (? anxiety) ABGs WNL. On 2L NC A/P Acute on chronic resp failure due to AECOPD - CTA - neg for PE , no PNA -(01/27) Readmit for labored breathing (? anxiety) ABGs WNL. On 2L NC - ? component od anxuiety - will monitor on NC - NIPPV prn AECOPD - steroids - nebs Cough - ? URTI - viral panel NEG - no PNA on CTA - cough suppressants , follow closely off ABX COPD with Emphysema current every day smoker - ? needs O2 at home Hyponatremia - mild, chronic Lines : peripg , (Central Line Necessity Reviewed) Tao: void OG: Nutrition: Analgesia: Anxiety/ delirium VTE Prophylaxis: kallie Stress Ulcer Prophylaxis: ppi Glycemic Control: Plans in collaboration with bedside consultants and IM MDs. Discussed with RN to reach out if any questions or concerns A total of _20 minutes of critical care time was devoted to this patient today, required to treat and/or prevent further deterioration of critical care condition ( as above ) . I am remotely monitoring this patient from another state. I am unable to do the bedside exam, and history/physical and pertinent information is taken from other notes in the computer and bedside staff. . Sepsis Event Evaluation Height, Weight, BMI Height: '" Weight: lbs. oz. kg; 21.92 BMI Method: Focused Exam Lactate Level 01/25/23 13:35: Lactic Acid Level 1.02 Exam Exam Patient acknowledged, consented, and participated in this virtual visit which was conducted using real time audio/video Vital Signs Date Time Temp Pulse Resp B/P (MAP) Pulse Ox O2 Delivery O2 Flow Rate FiO2 01/27/23 15:00 107 18 141/81 (101) 100 Nasal Cannula 2.00 01/27/23 14:00 107 16 153/76 (101) 100 Nasal Cannula 2.00 01/27/23 13:00 104 20 140/76 (97) 100 Nasal Cannula 2.00 01/27/23 13:00 101 01/27/23 12:00 36.8 Nasal Cannula 2.50 01/27/23 12:00 113 20 130/93 (105) 100 Nasal Cannula 2.00 01/27/23 11:53 112 01/27/23 11:40 101 20 131/83 (99) 100 Nasal Cannula 2.00 01/27/23 11:40 100 Nasal Cannula 2.00 01/27/23 11:21 92 Nasal Cannula 2.00 01/27/23 10:20 103 96 Nasal Cannula 2.50 01/27/23 09:00 Nasal Cannula 2.50 01/27/23 07:53 91 Nasal Cannula 2.00 01/27/23 07:52 91 Nasal Cannula 2.00 01/27/23 07:28 37.0 98 18 154/84 (107) 97 Nasal Cannula 2.50 01/27/23 03:53 37.0 103 18 129/77 (94) 97 Nasal Cannula 2.50 01/26/23 23:25 36.6 105 18 139/74 (95) 98 Nasal Cannula 2.50 01/26/23 20:00 Nasal Cannula 2.00 01/26/23 19:28 37.4 92 18 136/81 (99) 98 Nasal Cannula 2.50 01/26/23 16:00 37.4 102 18 118/75 (89) 97 Nasal Cannula 2.50 I & O 01/27/23 07:00 Intake Total 1275 ml Balance 1275 ml Height & Weight Height: '" Weight: lbs. oz. kg; 21.92 BMI Method: General Appearance: WD/WN, Anxious, Chronically ill, Mild Distress HEENT: PERRL/EOMI, Normal ENT Inspection, Pharynx Normal Neck: Full Range of Motion, Normal Inspection, Non Tender, Supple, Carotid Bruit Respiratory: Chest Non Tender, No Respiratory Distress, Accessory Muscle Use, Decreased Breath Sounds Cardiovascular: Regular Rate, Rhythm, No Edema, No Gallop, No JVD, No Murmur, Normal Peripheral Pulses Capillary Refill: Less Than 3 Seconds Gastrointestinal: non tender, soft Extremity: Normal Capillary Refill, Normal Inspection, Normal Range of Motion, Non Tender, No Calf Tenderness, No Pedal Edema Neurologic/Psychiatric: Alert, Oriented x3, No Motor/Sensory Deficits, Normal M ood/Affect Skin: Normal Color, Warm/Dry Lymphatic: No Adenopathy Results Lab Laboratory Tests 01/26/23 04:23 01/27/23 04:30 Assessment/Plan Assessment/Plan 1 HERMELINDO GUZMAN MD Jan 27, 2023 15:55
[2023-01-27] MEDS: ENOXAPARIN 40 MG/0.4 ML (LOVENOX) SYR SC SCH (17:09)
[2023-01-27] MEDS: MONTELUKAST 10 MG (SINGULAIR) TAB PO SCH (20:40)
[2023-01-27] MEDS: hydrALAZINE (APESOLINE) 20 MG/ML VIAL IV PRN (20:44)
[2023-01-28 03:33] LABS: ABG BASE EXCESS -0.1 MMOL/L (-2.5-2.5); ABG PCO2 39 MMHG (35-45); ABG PO2 95 MMHG (79-93); ABG TCO2 25.3 MMOL/L (21.0-31.0)
[2023-01-28 03:35] LABS: BASOPHILS % (AUTO) 0 % (0-10); EOSINOPHILS % (AUTO) 0 % (0-10); HEMATOCRIT 36 % (35-52); HEMOGLOBIN 11.3 g/dL (11.5-16.0); LYMPHOCYTES # (AUTO) 0.8 10^3/uL (1.0-4.0); LYMPHOCYTES % (AUTO) 15 % (12-44); MEAN CORPUSCULAR HEMOGLOBIN 28 pg (25-34); MEAN CORPUSCULAR HGB CONC 31 g/dL (32-36); MEAN CORPUSCULAR VOLUME 90 fL (80-99); MEAN PLATELET VOLUME 8.6 fL (9.0-12.2); MONOCYTES # (AUTO) 0.2 10^3/uL (0.0-1.0); MONOCYTES % (AUTO) 4 % (0-12); NEUTROPHILS % (AUTO) 81 % (42-75); PLATELET COUNT 327 10^3/uL (130-400); WHITE BLOOD COUNT 4.9 10^3/uL (4.3-11.0)
[2023-01-28 03:50] LABS: ABG OXYGEN SATURATION 98 % (94-100)
[2023-01-28 03:51] LABS: ALLENS TEST YES-POS; INSPIRED O2 30%; PATIENT TEMP 36.7; VENTILATOR NO
[2023-01-28 04:04] LABS: ALBUMIN 3.5 GM/DL (3.2-4.5); BILIRUBIN,TOTAL 0.2 MG/DL (0.1-1.0); CALCIUM 8.2 MG/DL (8.5-10.1); CREATININE SERUM 0.78 MG/DL (0.60-1.30); MAGNESIUM 2.5 MG/DL (1.6-2.4); POTASSIUM 3.6 MMOL/L (3.6-5.0); TOTAL PROTEIN 6.4 GM/DL (6.4-8.2)
[2023-01-28] MEDS: MAGNESIUM 1 GM/100 ML IVPB 100 ML IV SCH (04:10)
[2023-01-28] MEDS: KCL 20 MEQ TAB (K-DUR) PO SCH (04:10)
[2023-01-28] MEDS: inSUlin ASPART (NovoLOG) 1 UNIT/0.01 ML (CHARGE PER UNIT) SC SCH ×4 (04:10→20:45)
[2023-01-28] MEDS: POTASSIUM CL 10MEQ/50ML IVPB 50 ML IV SCH ×4 (04:10→10:52)
[2023-01-28] MEDS: DOXYCYCLINE INJECTION 100 MG in NS (IVPB) 100 ML IV SCH ×2 (05:07→18:03)
--- NOTE | 2023-01-28 06:14 | Progress Note ---
Subjective Date Seen by a Provider: Jan 28, 2023 Time Seen by a Provider: 11:00 Subjective/Events-last exam Patient doing a lot better Moving down to fourth floor Echo will be ordered Does not want to see cardiology again Patient very anxious Restarted all home medication We will continue PT and OT Review of Systems General: Fatigue, Malaise Focused Exam Lactate Level 01/25/23 13:35: Lactic Acid Level 1.02 Objective Exam Last Set of Vital Signs Vital Signs Date Time Temp Pulse Resp B/P (MAP) Pulse Ox O2 Delivery O2 Flow Rate FiO2 01/28/23 06:00 84 18 117/72 (87) 100 Nasal Cannula 2.00 01/28/23 03:14 36.7 01/25/23 16:08 95 Capillary Refill : Less Than 3 Seconds I&O Intake and Output 01/28/23 00:00 Intake Total 820 ml Output Total 250 ml Balance 570 ml Intake Oral 720 ml IV Total 100 ml Output Urine Total 250 ml # Voids 2 # Bowel Movements 2 General: Alert, Oriented X3, Cooperative, No Acute Distress Lungs: Clear to Auscultation, Normal Air Movement Heart: Regular Rate, Normal S1, Normal S2, No Murmurs Psych/Mental Status: Mental Status NL, Mood NL Results Lab Laboratory Tests 01/27/23 11:09: Glucometer 145H 01/27/23 11:20: Blood Gas Puncture Site R RAD, Blood Gas Patient Temperature 37, Arterial Blood pH 7.40, Arterial Blood Partial Pressure CO2 40, Arterial Blood Partial Pressure O2 83, Arterial Blood HCO3 24, Arterial Blood Total CO2 25.3, Arterial Blood Oxygen Saturation 97, Arterial Blood Base Excess -0.1, John Test YES-POS, Blood Gas Ventilator Setting NO, Blood Gas Inspired Oxygen 2 01/27/23 15:40: Glucometer 134H 01/27/23 20:37: Glucometer 115H 01/28/23 03:18: White Blood Count 4.9, Red Blood Count 4.01, Hemoglobin 11.3L, Hematocrit 36, Mean Corpuscular Volume 90, Mean Corpuscular Hemoglobin 28, Mean Corpuscular Hemoglobin Concent 31L, Red Cell Distribution Width 13.9, Platelet Count 327, Mean Platelet Volume 8.6L, Immature Granulocyte % (Auto) 1, Neutrophils (%) (Auto) 81H, Lymphocytes (%) (Auto) 15, Monocytes (%) (Auto) 4, Eosinophils (%) (Auto) 0, Basophils (%) (Auto) 0, Neutrophils # (Auto) 4.0, Lymphocytes # (Auto) 0.8L, Monocytes # (Auto) 0.2, Eosinophils # (Auto) 0.0, Basophils # (Auto) 0.0, Immature Granulocyte # (Auto) 0.0, Sodium Level 141, Potassium Level 3.6, Chloride Level 109H, Carbon Dioxide Level 22, Anion Gap 10, Blood Urea Nitrogen 11, Creatinine 0.78, Estimat Glomerular Filtration Rate 84, BUN/Creatinine Ratio 14, Glucose Level 134H, Calcium Level 8.2L, Corrected Calcium 8.6, Magnesium Level 2.5H, Total Bilirubin 0.2, Aspartate Amino Transf (AST/SGOT) 15, Alanine Aminotransferase (ALT/SGPT) 14, Alkaline Phosphatase 90, Total Protein 6.4, Albumin 3.5 01/28/23 03:25: Blood Gas Puncture Site R RAD, Blood Gas Patient Temperature 36.7, Arterial Blood pH 7.40, Arterial Blood Partial Pressure CO2 39, Arterial Blood Partial Pressure O2 95H, Arterial Blood HCO3 24, Arterial Blood Total CO2 25.3, Arterial Blood Oxygen Saturation 98, Arterial Blood Base Excess -0.1, John Test YES-POS, Blood Gas Ventilator Setting NO, Blood Gas Inspired Oxygen 30% Microbiology 01/25/23 MRSA Screen - Final, Complete MRSA not isolated 01/25/23 Blood Culture - Preliminary, Resulted No growth Assessment/Plan Assessment/Plan Assess & Plan/Chief Complaint Assessment: Acute hypoxic hypercapneic respiratory failure requiring biPAP then DC and moved to floor but now in more respiratory distress so moved back to ICU 01/27/23 Bronchitis with PNA on repeat CXR placed on Doxy initially then added Cefepime Friday Lung cancer on immunotherapy AECOPD Smoker Hypothyroidism HTN HLP Anxiety Plan: IV steroids Maintain Cefepime Move back to 4th O2 Doxy IV MARCOS IBRAHIM DO Jan 28, 2023 06:14
[2023-01-28] MEDS ORDERED: KCL 20 MEQ TAB (K-DUR) PO ONE (08:00)
[2023-01-28] MEDS: RT-ALBUTEROL/IPRATROPIUM 3 ML (DUONEB) VIAL INH SCH ×2 (08:27→20:14)
[2023-01-28] MEDS: RT-BUDESONIDE NEBS 0.5 MG/2ML (PULMICORT) AMP INH SCH ×2 (08:27→20:14)
--- NOTE | 2023-01-28 08:42 | Tele-ICU Progress Note ---
Subjective Date Seen by a Provider: Jan 28, 2023 Time Seen by a Provider: 08:37 Subjective/Events-last exam Tele-ICU Physician , Progress Note ) Service provided via interactive audio and video telecommunications E-CARE system to a patient admitted to ICU bed in [facility]. Patient is seen today due to persistent need of ICU care Available chart/ vitals / labs / Images reviewed Video assessment done using teleICU camera, rest of exam as per RN Discussed with RN Events overnight : 61 yo F admitted with AECOPD, also has Lung Ca Hx?, CO2 retention, admitted for increased WOB but better now ABG 7.46/39/95 on NC 1 lpm NC, SpO2 Getting albuterol, IV Decadron, inh steroids Sepsis Event Evaluation Height, Weight, BMI Height: '" Weight: lbs. oz. kg; 20.59 BMI Method: Focused Exam Lactate Level 01/25/23 13:35: Lactic Acid Level 1.02 Exam Exam Patient acknowledged, consented, and participated in this virtual visit which was conducted using real time audio/video Vital Signs Date Time Temp Pulse Resp B/P (MAP) Pulse Ox O2 Delivery O2 Flow Rate FiO2 01/28/23 08:30 Nasal Cannula 1.00 01/28/23 08:27 100 Nasal Cannula 1.00 01/28/23 08:06 36.8 01/28/23 08:00 87 20 131/78 (95) 100 Nasal Cannula 2.00 01/28/23 07:00 85 01/28/23 07:00 86 18 139/74 (95) 100 Nasal Cannula 2.00 01/28/23 06:00 84 18 117/72 (87) 100 Nasal Cannula 2.00 01/28/23 05:00 93 23 126/67 (86) 99 Nasal Cannula 2.00 01/28/23 04:00 90 22 125/71 (89) 100 Nasal Cannula 2.00 01/28/23 03:14 36.7 101 23 123/82 (96) 100 Nasal Cannula 2.00 01/28/23 03:05 99 Nasal Cannula 2.00 01/28/23 03:00 74 16 103/64 (77) 98 Nasal Cannula 2.00 01/28/23 02:00 104 24 125/80 (101) 100 Nasal Cannula 2.00 01/28/23 01:00 114 24 123/74 (94) 100 Nasal Cannula 2.00 01/28/23 01:00 114 01/28/23 00:00 105 23 126/73 (90) 100 Nasal Cannula 2.00 01/27/23 23:55 100 Nasal Cannula 2.00 01/27/23 23:54 36.8 117 28 100 Nasal Cannula 2.00 01/27/23 23:00 114 27 135/75 (95) 99 Nasal Cannula 2.00 01/27/23 22:00 125 27 131/73 (94) 100 Nasal Cannula 2.00 01/27/23 21:01 92 01/27/23 21:00 133 16 183/95 (134) 97 Nasal Cannula 2.00 01/27/23 20:36 99 Nasal Cannula 2.00 01/27/23 20:35 99 Nasal Cannula 2.00 01/27/23 20:00 36.7 01/27/23 20:00 93 23 160/85 (103) 100 Nasal Cannula 2.00 01/27/23 19:10 100 Nasal Cannula 2.00 01/27/23 19:00 96 22 160/89 (112) 100 Nasal Cannula 2.00 01/27/23 19:00 92 01/27/23 18:00 120 15 162/92 (115) 96 Nasal Cannula 2.00 01/27/23 17:00 101 17 154/83 (106) 100 Nasal Cannula 2.00 01/27/23 16:10 100 Nasal Cannula 2.00 01/27/23 16:00 101 22 155/78 (103) 100 Nasal Cannula 2.00 01/27/23 16:00 36.5 01/27/23 15:56 36.5 Nasal Cannula 2.50 01/27/23 15:00 107 18 141/81 (101) 100 Nasal Cannula 2.00 01/27/23 14:00 107 16 153/76 (101) 100 Nasal Cannula 2.00 01/27/23 13:00 104 20 140/76 (97) 100 Nasal Cannula 2.00 01/27/23 13:00 101 01/27/23 12:00 36.8 Nasal Cannula 2.50 01/27/23 12:00 113 20 130/93 (105) 100 Nasal Cannula 2.00 01/27/23 11:53 112 01/27/23 11:40 101 20 131/83 (99) 100 Nasal Cannula 2.00 01/27/23 11:40 100 Nasal Cannula 2.00 01/27/23 11:21 92 Nasal Cannula 2.00 01/27/23 10:20 103 96 Nasal Cannula 2.50 01/27/23 09:00 Nasal Cannula 2.50 I & O 01/28/23 07:00 Intake Total 1135 ml Output Total 725 ml Balance 410 ml Height & Weight Height: '" Weight: lbs. oz. kg; 20.59 BMI Method: General Appearance: WD/WN, Anxious, Chronically ill, Mild Distress HEENT: PERRL/EOMI, Normal ENT Inspection, Pharynx Normal Neck: Full Range of Motion, Normal Inspection, Non Tender, Supple, Carotid Bruit Respiratory: Chest Non Tender, No Respiratory Distress, Accessory Muscle Use, Decreased Breath Sounds, Rales, Other (less crackles today) Cardiovascular: Regular Rate, Rhythm, No Edema, No Gallop, No JVD, No Murmur, Normal Peripheral Pulses Capillary Refill: Less Than 3 Seconds Gastrointestinal: non tender, soft Extremity: Normal Capillary Refill, Normal Inspection, Normal Range of Motion, Non Tender, No Calf Tenderness, No Pedal Edema Neurologic/Psychiatric: Alert, Oriented x3, No Motor/Sensory Deficits, Normal Mood/Affect Skin: Normal Color, Warm/Dry Lymphatic: No Adenopathy Results Lab Laboratory Tests 01/27/23 04:30 01/28/23 03:18 Assessment/Plan Assessment/Plan AECOPD, would begin to taper steroids when ready for home 6 min walk Hx of lung Ca-getting Keytruda Critical Care: Critically Ill Patient Time spent with patient (mins): 25 TAYLOR ANN MD Jan 28, 2023 08:42
[2023-01-28] MEDS: DOCUSATE SODIUM 100 MG (COLACE) CAP PO SCH ×2 (09:32→20:06)
[2023-01-28] MEDS: PANTOPRAZOLE 40 MG (PROTONIX) TAB PO SCH (09:32)
[2023-01-28] MEDS: ASPIRIN 81 MG CHEW (CHILDREN'S ASA) PO SCH (09:32)
[2023-01-28] MEDS: CEFEPIME INJECTION 1,000 MG in NS (IVPB) 50 ML IV SCH ×3 (09:32→23:33)
[2023-01-28] MEDS: SENNOSIDES 8.6 MG (SENOKOT) TAB PO SCH ×2 (09:32→20:06)
--- NOTE | 2023-01-28 09:34 | Occupational Therapy Eval ---
OT Evaluation-General/PLF Medical Diagnosis Admission Date Jan 25, 2023 at 14:44 Medical Diagnosis: acute rsp. failure Onset Date: Jan 25, 2023 Therapy Diagnosis Therapy Diagnosis: weakness Precautions Precautions/Isolations: Fall Prevention, Standard Precautions Medical History Pertinent Medical History: COPD, HTN, Smoking Additional Medical History [id number] clinic patient of Dr Romo who has a h/o lung cancer on Kaytruda by Dr Knott who presented to the ER with acute respiratory distress and required biPAP placement along with IV steroids and O2. No evidence of any PNA and no PE on CTA chest considering she just returned from a 14 day trip to [place] and other stops along the way. She is still a bit tachypneic so biPAP may need to be used again tonight but currently she is on hi-katrina O2 NC. Labs reviewed and will be monitored closely due to high risk for intubation Reviewed History: Yes Social History Home: Single Level Current Living Status: Spouse Entry Into Home: Stairs Without Railing (uses wall) Steps Into Home: 2 ADL-Prior Level of Function SCALE: Activities may be completed with or without assistive devices. 0-Gifabpnvwt-bnosavp completes the activity by him/herself with no assistance from a helper. 5-Set-up or Clean-up Assistance-helper sets up or cleans up; patient completes activity. [place] assists only prior to or following the activity. 4-Supervision or Touching Assistance-helper provides verbal cues and/or touching/steadying and/or contact guard assistance as patient completes activity. Assistance may be provided throughout the activity or intermittently. 3-Partial/Moderate Assistance-helper does LESS THAN HALF the effort. [place] lifts, holds or supports trunk or limbs, but provides less than half the effort. 2-Substantial/Maximal Assistance-helper does MORE THAN HALF the effort. [place] lifts or holds trunk or limbs and provides more than half the effort. 9-Fpjtknljf-shhquj does ALL the effort. Patient does none of the effort to complete the activity. Or, the assistance of 2 or more helpers is required for the patient to complete the activity. If activity was not attempted, code reason: 7-Patient Refused. 9-Not Applicable-not attempted and the patient did not perform the activity before the current illness, exacerbation or injury. 10-Not Attempted due to Environmental Limitations-(lack of equipment, weather restraints, etc.). 88-Not Attempted due to Medical Conditions or Safety Concerns. Self Care: Independent Functional Cognition: Independent DME/Equipment Comments Walk in shower, sleeps on sofa 50% of time Drive Self: No (not any more, only briefly in town) OT Current Status Subjective Initially declined, then requested assist with toileting, hygiene and oral care, spouse intermittently present Mental Status/Objective Patient Orientation: Person, Place, Time, Situation Attachments: Oxygen, SCD's (fearful of DVT), Telemetry Current Glasses/Contacts: Yes Hand Dominance: Right Upper Extremity ROM BUE ROM WFLS Upper Extremity Coordination INTACT FMC/GMC slow responsiveness Upper Extremity Strength general weakness ADL-Treatment Eating (QC): 6 (opens own Dr. Rea can and pours into ice foam cup , lid, straw) Oral Hygiene (QC): 4 (OT manageed water, open paste and apply d/t toothbrush d/t dizziness and weakness in standing. Patietn wanted to stand at sink to perform hand/face and oral care) Shower/Bathe Self (QC): 7 Upper Body Dressing (QC): 4 Lower Body Dressing (QC): 4 On/Off Footwear (QC): 4 Toileting Hygiene (QC): 4 Patent is fearful/tearful she will here and never go home Education OT Patient Education: Correct positioning, Energy conservation, Exercise program, Modified ADL techniques, Progress toward Goal/Update tx plan, Purpose of tx/functional activities, Reviewed precautions, Rehab process, Safety issues, Transfer techniques, Use of adapted equipment Teaching Recipient: Patient, Significant Other Teaching Methods: Demonstration, Discussion Response to Teaching: Verbalize Understanding, Reinforcement Needed OT Mcc Goals Lineman A Class Goals Eating (QC): 6 Oral Hygiene (QC): 6 Toileting Hygiene (QC): 6 Shower/Bathe Self (QC): 6 Upper Body Dressing (QC): 6 Lower Body Dressing (QC): 5 On/Off Footwear (QC): 6 1=Demonstrate adherence to instructed precautions during ADL tasks. 2=Patient will verbalize/demonstrate understanding of assistive devices/modifications for ADL. 3=Patient will improve strength/tolerance for activity to enable patient to perform ADL's. OT Education/Plan Problem List/Assessment Assessment: Decreased Activ Tolerance, Decreased UE Strength, Impaired Self- Care Skills Discharge Recommendations Plan/Recommendations: Continue POC Therapy Discharge Recommendati: Post Acute OT Treatment Plan/Plan of Care Treatment,Training & Education: Yes Patient would benefit from OT for education, treatment and training to promote independence in ADL's, mobility, safety and/or upper extremity function for ADL's. Plan of Care: ADL Retraining, Functional Mobility, Group Exercise/Act as Ind, UE Funct Exercise/Act Treatment Duration: Feb 01, 2023 Frequency: 3 times per week (3-5 times per week) Estimated Hrs Per Day: .25 hour per day Agreement: Yes Rehab Potential: Guarded Time Start Time: 08:45 Stop Time: 09:10 DATE: Jan 28, 2023 Total Time Billed (hr/min): 25 Billed Treatment Time EVM ADL 25 min ALEXI KIRKPATRICK OT Jan 28, 2023 09:34
--- NOTE | 2023-01-28 09:56 | Physical Therapy Evaluation ---
PT Evaluation-General Medical Diagnosis Admission Date Jan 25, 2023 at 14:44 Medical Diagnosis: acute rsp. failure Onset Date: Jan 25, 2023 Therapy Diagnosis Therapy Diagnosis: generalized weakness/debility Precautions Precautions/Isolations: Fall Prevention, Standard Precautions Referral Physician: Gabino Reason for Referral: Evaluation/Treatment Medical History Pertinent Medical History: COPD, HTN, PVD, Smoking Additional Medical History lung cancer Current History ER secondary to SOA/and decreased SAO2 59% Reviewed History: Yes Social History Home: Single Level Current Living Status: Spouse Entry Into Home: Stairs Without Railing (uses wall) PT Steps Into Home: 2 Prior Prior Level of Function SCALE: Activities may be completed with or without assistive devices. 2-Yjdiunpzvy-dqgsszu completes the activity by him/herself with no assistance from a helper. 5-Set-up or Clean-up Assistance-helper sets up or cleans up; patient completes activity. [place] assists only prior to or following the activity. 4-Supervision or Touching Assistance-helper provides verbal cues and/or touching/steadying and/or contact guard assistance as patient completes activity. Assistance may be provided throughout the activity or intermittently. 3-Partial/Moderate Assistance-helper does LESS THAN HALF the effort. [place] lifts, holds or supports trunk or limbs, but provides less than half the effort. 2-Substantial/Maximal Assistance-helper does MORE THAN HALF the effort. [place] lifts or holds trunk or limbs and provides more than half the effort. 1-Spmjzkywn-jgcbqa does ALL the effort. Patient does none of the effort to complete the activity. Or, the assistance of 2 or more helpers is required for the patient to complete the activity. If activity was not attempted, code reason: 7-Patient Refused. 9-Not Applicable-not attempted and the patient did not perform the activity before the current illness, exacerbation or injury. 10-Not Attempted due to Environmental Limitations-(lack of equipment, weather restraints, etc.). 88-Not Attempted due to Medical Conditions or Safety Concerns. Bed Mobility: 6 Transfers (B,C,W/C): 6 Gait: 6 Stairs: 6 Indoor Mobility (Ambulation): Independent Stairs: Independent Prior Devices Use: Other-see list below Prior Device Use: cane PRN per patient PT Evaluation-Current Subjective Patient agrees to PT. Spouse present. Objective Patient Orientation: Normal For Age Attachments: Oxygen ROM/Strength ROM Lower Extremities bilateral LE WFL Strength Lower Extremities 3-/5 grossly bilateral LE all planes Integumentary/Posture Bowel Incontinence: No Bladder Incontinence: No Posture kyphotic Neuromuscular (Tone, Coordination, Reflexes) grossly intact Sensory Vision: Functional Hearing: Functional Hand Dominance: Right Transfers Sit to Lying (QC): 4 Lying to Sitting/Side of Bed(Q: 4 Sit to Stand (QC): 4 Toilet Transfer (QC): 4 stood at sink to brush teeth, wash face and recover all CGA for balance deficit Gait Mode of Locomotion: Walk Anticipated Mode of Locomotion: Walk Walk 10 feet (QC): 4 Walk 50 ft with 2 Turns(QC): 88 Gait Assistive Device: FWW Comments/Gait Description very slow gait sequence Balance Sitting Static: Normal Sitting Dynamic: Normal Standing Static: Fair Standing Dynamic: Fair Assessment/Needs Patient will benefit from skilled PT to address functional strength and mobility to improve current LOF. Rehab Potential: Guarded PT Desktop Technician Goals [facility] Goals PT Desktop Technician Goals Time Frame: Feb 15, 2023 Roll Left & Right (QC): 6 Sit to Lying (QC): 6 Lying-Sitting on Side/Bed(QC): 6 Sit to Stand (QC): 4 Chair/Jnf-du-Xzjlm Xfer(QC): 4 Walk 10 feet (QC): 4 Walk 50ft with 2 Turns (QC): 4 PT Plan Problem List Problem List: Activity Tolerance, Functional Strength, Safety, Balance, Gait, Transfer, Bed Mobility Treatment/Plan Treatment Plan: Continue Plan of Care Treatment Plan: Bed Mobility, Education, Functional Activity [place], Functional Strength, Gait, Safety, Therapeutic Exercise, Transfers Treatment Duration: Feb 15, 2023 Frequency: 6 times per week Estimated Hrs Per Day: .25 hour per day Time Time In: 845 Time Out: 910 DATE: Jan 28, 2023 Total Billed Treatment Time: 25 Total Billed Treatment 1 visit EVModC 10 min FA 15 min ADONIS HANSEN PT Jan 28, 2023 09:56
[2023-01-28] MEDS ORDERED: ALPRAZolam 0.5 MG (XANAX) TAB PO PRN (11:30)
[2023-01-28] MEDS ORDERED: MELATONIN 10 MG TABLET PO PRN (11:45)
--- NOTE | 2023-01-28 13:19 | Diagnostic Imaging Report ---
INDICATION: Pneumonia. COMPARISON: 01/27/2023 FINDINGS: Single frontal view of the chest demonstrates normal heart size and pulmonary vascularity. The lungs are well aerated and clear. No large pleural effusion or pneumothorax is seen. The visualized osseous structures show no acute abnormalities. Right internal jugular Port-A-Cath is again identified. IMPRESSION: 1. No acute cardiopulmonary process. Dictated by: Dictated on workstation # [id number]
[2023-01-28] MEDS: meTOprolol TARTRATE 50 MG (LOPRESSOR) TAB PO SCH (14:32)
[2023-01-28] MEDS: ALPRAZolam 0.5 MG (XANAX) TAB PO SCH (14:33)
[2023-01-28] MEDS: FOLIC ACID 1 MG TAB PO SCH (14:33)
[2023-01-28] MEDS: ENOXAPARIN 40 MG/0.4 ML (LOVENOX) SYR SC SCH (15:36)
[2023-01-28 16:05] VITALS: BP 152/79
[2023-01-28] MEDS: CALCIUM CARBONATE 600 MG (CALCARB) TAB PO SCH (18:03)
[2023-01-28 19:48] VITALS: BP 155/79
[2023-01-28] MEDS: AtorvaSTATin TABLET 10 MG TABLET PO SCH (20:03)
[2023-01-28] MEDS: MONTELUKAST 10 MG (SINGULAIR) TAB PO SCH (20:03)
[2023-01-28] MEDS: guaiFENesin/DM (ROBITUSSIN DM) 10 ML UDC PO PRN ×2 (20:03→23:33)
[2023-01-28] MEDS ORDERED: NON-FORMULARY MEDICATION 1 EA EA (Calcium Carbonate (Calcium) 500 MG) PO SCH (21:00)
[2023-01-28] MEDS ORDERED: NON-FORMULARY MEDICATION 1 EA EA (Pravastatin Sodium 20 MG) PO SCH (21:00)
[2023-01-29] VITALS (8 sets, daily range): BP systolic 112–181; BP diastolic 59–85
[2023-01-29] MEDS: hydrALAZINE (APESOLINE) 20 MG/ML VIAL IV PRN (04:38)
[2023-01-29 04:50] LABS: BASOPHILS % (AUTO) 0 % (0-10); EOSINOPHILS % (AUTO) 0 % (0-10); HEMATOCRIT 37 % (35-52); HEMOGLOBIN 11.5 g/dL (11.5-16.0); LYMPHOCYTES # (AUTO) 1.3 10^3/uL (1.0-4.0); LYMPHOCYTES % (AUTO) 30 % (12-44); MEAN CORPUSCULAR HEMOGLOBIN 28 pg (25-34); MEAN CORPUSCULAR HGB CONC 31 g/dL (32-36); MEAN CORPUSCULAR VOLUME 90 fL (80-99); MEAN PLATELET VOLUME 8.5 fL (9.0-12.2); MONOCYTES # (AUTO) 0.2 10^3/uL (0.0-1.0); MONOCYTES % (AUTO) 4 % (0-12); NEUTROPHILS # (AUTO) 2.8 10^3/uL (1.8-7.8); NEUTROPHILS % (AUTO) 66 % (42-75); PLATELET COUNT 312 10^3/uL (130-400); WHITE BLOOD COUNT 4.3 10^3/uL (4.3-11.0)
[2023-01-29 05:00] LABS: ALBUMIN 3.3 GM/DL (3.2-4.5)
[2023-01-29 05:01] LABS: POTASSIUM 4.3 MMOL/L (3.6-5.0)
[2023-01-29 05:02] LABS: CALCIUM 8.4 MG/DL (8.5-10.1)
[2023-01-29 05:03] LABS: TOTAL PROTEIN 6.1 GM/DL (6.4-8.2)
[2023-01-29 05:05] LABS: BILIRUBIN,TOTAL 0.2 MG/DL (0.1-1.0)
[2023-01-29 05:06] LABS: CREATININE SERUM 0.73 MG/DL (0.60-1.30)
[2023-01-29 05:09] LABS: MAGNESIUM 2.2 MG/DL (1.6-2.4)
[2023-01-29] MEDS: DOXYCYCLINE INJECTION 100 MG in NS (IVPB) 100 ML IV SCH ×2 (05:12→17:22)
[2023-01-29] MEDS: ALPRAZolam 0.5 MG (XANAX) TAB PO SCH ×2 (05:21→12:21)
[2023-01-29] MEDS: inSUlin ASPART (NovoLOG) 1 UNIT/0.01 ML (CHARGE PER UNIT) SC SCH ×4 (05:32→20:02)
[2023-01-29] MEDS: KCL 20 MEQ TAB (K-DUR) PO SCH (05:32)
[2023-01-29] MEDS: MAGNESIUM 1 GM/100 ML IVPB 100 ML IV SCH (05:33)
--- NOTE | 2023-01-29 05:49 | Progress Note ---
Subjective Date Seen by a Provider: Jan 29, 2023 Time Seen by a Provider: 08:30 Subjective/Events-last exam Patient doing a lot better Family at the bedside Anxiety is an issue Chest x-ray improved Labs improved Patient is very weak so we will initiate PT and OT to help her recover back to baseline Review of Systems General: Fatigue, Malaise Pulmonary: Dyspnea, Cough Objective Exam Last Set of Vital Signs Vital Signs Date Time Temp Pulse Resp B/P (MAP) Pulse Ox O2 Delivery O2 Flow Rate FiO2 01/29/23 05:44 79 16 153/80 (104) 98 Nasal Cannula 2.00 01/29/23 04:16 36.2 01/25/23 16:08 95 Capillary Refill : Less Than 3 Seconds I&O Intake and Output 01/29/23 00:00 Intake Total 2275 ml Output Total 775 ml Balance 1500 ml Intake Oral 2075 ml IV Total 200 ml Output Urine Total 775 ml # Voids 6 # Bowel Movements 3 General: Alert, Oriented X3, Cooperative, No Acute Distress Lungs: Clear to Auscultation, Normal Air Movement Heart: Regular Rate, Normal S1, Normal S2, No Murmurs Psych/Mental Status: Mental Status NL, Mood NL Results Lab Laboratory Tests 01/28/23 10:43: Glucometer 117H 01/28/23 15:28: Glucometer 140H 01/28/23 20:23: Glucometer 111H 01/29/23 04:43: White Blood Count 4.3, Red Blood Count 4.08, Hemoglobin 11.5, Hematocrit 37, Mean Corpuscular Volume 90, Mean Corpuscular Hemoglobin 28, Mean Corpuscular Hemoglobin Concent 31L, Red Cell Distribution Width 13.9, Platelet Count 312, Mean Platelet Volume 8.5L, Immature Granulocyte % (Auto) 0, Neutrophils (%) (Auto) 66, Lymphocytes (%) (Auto) 30, Monocytes (%) (Auto) 4, Eosinophils (%) (Auto) 0, Basophils (%) (Auto) 0, Neutrophils # (Auto) 2.8, Lymphocytes # (Auto) 1.3, Monocytes # (Auto) 0.2, Eosinophils # (Auto) 0.0, Basophils # (Auto) 0.0, Immature Granulocyte # (Auto) 0.0, Sodium Level 141, Potassium Level 4.3, Chloride Level 113H, Carbon Dioxide Level 21, Anion Gap 7, Blood Urea Nitrogen 9, Creatinine 0.73, Estimat Glomerular Filtration Rate 91, BUN/Creatinine Ratio 12, Glucose Level 104, Calcium Level 8.4L, Corrected Calcium 9.0, Magnesium Level 2.2, Total Bilirubin 0.2, Aspartate Amino Transf (AST/SGOT) 16, Alanine Aminotransferase (ALT/SGPT) 19, Alkaline Phosphatase 83, Total Protein 6.1L, Albumin 3.3 Microbiology 01/25/23 MRSA Screen - Final, Complete MRSA not isolated 01/25/23 Blood Culture - Preliminary, Resulted No growth Assessment/Plan Assessment/Plan Assess & Plan/Chief Complaint Assessment: Acute hypoxic hypercapneic respiratory failure requiring biPAP then DC and moved to floor but then in more respiratory distress so moved back to ICU 01/27/23 but now back to fourth floor Bronchitis with PNA on repeat CXR placed on Doxy initially then added Cefepime Friday Lung cancer on immunotherapy AECOPD Smoker Hypothyroidism HTN HLP Anxiety Plan: IV steroids wean Maintain Cefepime PT and OT O2 Doxy IV MARCOS IBRAHIM DO Jan 29, 2023 05:49
[2023-01-29] MEDS: RT-ALBUTEROL/IPRATROPIUM 3 ML (DUONEB) VIAL INH SCH ×2 (07:24→20:16)
[2023-01-29] MEDS: RT-BUDESONIDE NEBS 0.5 MG/2ML (PULMICORT) AMP INH SCH ×2 (07:24→20:16)
[2023-01-29] MEDS: DOCUSATE SODIUM 100 MG (COLACE) CAP PO SCH ×2 (08:05→20:02)
[2023-01-29] MEDS: SENNOSIDES 8.6 MG (SENOKOT) TAB PO SCH ×2 (08:05→20:02)
--- NOTE | 2023-01-29 08:10 | Diagnostic Imaging Report ---
INDICATION: Dyspnea. TECHNIQUE: Single view chest 5:25 AM. CORRELATION STUDY: 01/28/2023 FINDINGS: Right IJ Jylmdf-v-Shmd catheter tip over the SVC. Distortion me stem anatomy given scoliotic curvature the spine. Given this, heart size, mediastinum and vasculature overall within normal limits. Vasculature is normal on follow-up. Lungs are generally clear but appear hyperinflated. Scar and/or chronic atelectasis the left upper lung field. IMPRESSION: 1. Generally stable chest demonstrates no acute abnormality. Dictated by: Dictated on workstation # [id number]
[2023-01-29] MEDS: CALCIUM CARBONATE 600 MG (CALCARB) TAB PO SCH ×3 (08:35→16:33)
[2023-01-29] MEDS: ASPIRIN 81 MG CHEW (CHILDREN'S ASA) PO SCH (08:36)
[2023-01-29] MEDS: VITAMIN D3 125 MCG (5,000 UNITS) CAPSULE PO SCH (08:40)
[2023-01-29] MEDS: CEFEPIME INJECTION 1,000 MG in NS (IVPB) 50 ML IV SCH ×3 (08:40→23:13)
[2023-01-29] MEDS: meTOprolol TARTRATE 50 MG (LOPRESSOR) TAB PO SCH (12:21)
[2023-01-29] MEDS: FOLIC ACID 1 MG TAB PO SCH (12:21)
[2023-01-29] MEDS ORDERED: PANTOPRAZOLE 40 MG (PROTONIX) TAB PO SCH (13:00)
--- NOTE | 2023-01-29 14:06 | Occupational Ther Daily Note ---
OT Current Status-Daily Note Subjective Agreeable to sit up EOB to eat lunch Mental Status/Objective Patient Orientation: Person, Place, Situation Attachments: Oxygen slight confusion w/ staff names and faces ADL-Treatment Therapy Code Descriptions/Definitions Functional [place] Measure: 0=Not Assessed/NA 4=Minimal Assistance 1=Total Assistance 5=Supervision or Setup 2=Maximal Assistance 6=Modified [place] 3=Moderate Assistance 7=Complete IndependenceSCALE: Activities may be completed with or without assistive devices. 9-Iygfcuyveu-exxymzd completes the activity by him/herself with no assistance from a helper. 5-Set-up or Clean-up Assistance-helper sets up or cleans up; patient completes activity. [place] assists only prior to or following the activity. 4-Supervision or Touching Assistance-helper provides verbal cues and/or touching/steadying and/or contact guard assistance as patient completes activity. Assistance may be provided throughout the activity or intermittently. 3-Partial/Moderate Assistance-helper does LESS THAN HALF the effort. [place] lifts, holds or supports trunk or limbs, but provides less than half the effort. 2-Substantial/Maximal Assistance-helper does MORE THAN HALF the effort. [place] lifts or holds trunk or limbs and provides more than half the effort. 6-Drwhqrwio-rkebuh does ALL the effort. Patient does none of the effort to complete the activity. Or, the assistance of 2 or more helpers is required for the patient to complete the activity. If activity was not attempted, code reason: 7-Patient Refused. 9-Not Applicable-not attempted and the patient did not perform the activity before the current illness, exacerbation or injury. 10-Not Attempted due to Environmental Limitations-(lack of equipment, weather restraints, etc.). 88-Not Attempted due to Medical Conditions or Safety Concerns. Eating (QC): 6 Oral Hygiene (QC): 5 Shower/Bathe Self (QC): 7 (declined at this time, OT set up supplies as patient reports may feel up to shower later this afternoon) Upper Body Dressing (QC): 4 Lower Body Dressing (QC): 4 On/Off Footwear: 5 Toileting Hygiene (QC): 4 Toilet Transfer (QC): 4 Fair dynamic standing balance and fair endurance w/ ADLS, requires assist w/ tubes/lines. Patient up ambulating in room to bathroom on arrival, OT provided education for safety and fall reduction Education OT Patient Education: Correct positioning, Energy conservation, Exercise program, Modified ADL techniques, Progress toward Goal/Update tx plan, Purpose of tx/functional activities, Reviewed precautions, Rehab process, Safety issues, Transfer techniques, Use of adapted equipment Teaching Recipient: Patient Teaching Methods: Demonstration, Discussion Response to Teaching: Verbalize Understanding OT Plastic Bubble Packer Goals Plastic Bubble Packer Goals Eating (QC): 6 Oral Hygiene (QC): 6 Toileting Hygiene (QC): 6 Shower/Bathe Self (QC): 6 Upper Body Dressing (QC): 6 Lower Body Dressing (QC): 5 On/Off Footwear (QC): 6 1=Demonstrate adherence to instructed precautions during ADL tasks. 2=Patient will verbalize/demonstrate understanding of assistive devices/modifications for ADL. 3=Patient will improve strength/tolerance for activity to enable patient to perform ADL's. OT Education/Plan Problem List/Assessment Assessment: Decreased Activ Tolerance, Impaired Funct Balance, Impaired Self- Care Skills Discharge Recommendations Plan/Recommendations: Continue POC Treatment Plan/Plan of Care Patient would benefit from OT for education, treatment and training to promote independence in ADL's, mobility, safety and/or upper extremity function for AD L's. Plan of Care: ADL Retraining, Functional Mobility, Group Exercise/Act as Ind, UE Funct Exercise/Act Treatment Duration: Feb 01, 2023 Frequency: 3 times per week (3-5 times per week) Estimated Hrs Per Day: .25 hour per day Agreement: Yes Rehab Potential: Guarded Time Start Time: 13:07 Stop Time: 13:27 DATE: Jan 29, 2023 Total Time Billed (hr/min): 20 Billed Treatment Time ADL 20 min ALEXI KIRKPATRICK OT Jan 29, 2023 14:06
--- NOTE | 2023-01-29 15:17 | Physical Therapy Daily Note ---
PT Daily Note-Current Subjective Patient lying supine in bed upon PT arrival, agreeable to treatment. Rates pain at 0/10 currently. Pain Section J - Health Conditions 1. Rarely or not at all 2. Occasionally 3. Frequently 4. Almost constantly 8. Unable to answer Pain Effect on Sleep: 1 Pain Interference with Therapy: 1 Pain Interference w/Day-to-Day: 1 Mental Status Patient Orientation: Person Attachments: IV Transfers SCALE: Activities may be completed with or without assistive devices. 0-Enoalbhjfn-imlyfjs completes the activity by him/herself with no assistance from a helper. 5-Set-up or Clean-up Assistance-helper sets up or cleans up; patient completes activity. [place] assists only prior to or following the activity. 4-Supervision or Touching Assistance-helper provides verbal cues and/or touc darrin/steadying and/or contact guard assistance as patient completes activity. Assistance may be provided throughout the activity or intermittently. 3-Partial/Moderate Assistance-helper does LESS THAN HALF the effort. [place] lifts, holds or supports trunk or limbs, but provides less than half the effort. 2-Substantial/Maximal Assistance-helper does MORE THAN HALF the effort. [place] lifts or holds trunk or limbs and provides more than half the effort. 3-Hjygyjlti-fsxmyq does ALL the effort. Patient does none of the effort to complete the activity. Or, the assistance of 2 or more helpers is required for the patient to complete the activity. If activity was not attempted, code reason: 7-Patient Refused. 9-Not Applicable-not attempted and the patient did not perform the activity before the current illness, exacerbation or injury. 10-Not Attempted due to Environmental Limitations-(lack of equipment, weather restraints, etc.). 88-Not Attempted due to Medical Conditions or Safety Concerns. Roll Left & Right (QC): 4 Sit to Lying (QC): 4 Lying to Sitting/Side of Bed(Q: 4 Sit to Stand (QC): 4 Chair/Nau-uf-Gnmry Xfer(QC): 4 Gait Training Does the Patient Walk?: Yes Distance: 150' Walk 10 feet (QC): 4 Walk 50 ft with 2 Turns(QC): 4 Walk 150 ft (QC): 4 Gait Assistive Device: FWW Assessment Current Status: Fair Progress Patient tolerated treatment well. Performs all bed mobility and transfers with SBA. Patient ambulates 150 feet with FWW, with SBA and verbal cues for safety, progression, posture and conservation of energy. Patient ambulates with NBOS and slow velocity with shortened stride length. Patient in bed post treatment with all needs met, nursing notified, call light in hand. PT Usp Goals Usp Goals PT Usp Goals Time Frame: Feb 15, 2023 Roll Left & Right (QC): 6 Sit to Lying (QC): 6 Lying-Sitting on Side/Bed(QC): 6 Sit to Stand (QC): 4 Chair/Jex-qc-Vhind Xfer(QC): 4 Walk 10 feet (QC): 4 Walk 50ft with 2 Turns (QC): 4 PT Plan Problem List Problem List: Activity Tolerance, Functional Strength, Safety, Balance, Gait, Transfer, Bed Mobility, ROM Treatment/Plan Treatment Plan: Continue Plan of Care Treatment Plan: Bed Mobility, Education, Functional Activity [place], Functional Strength, Gait, Safety, Therapeutic Exercise, Transfers Treatment Duration: Feb 15, 2023 Frequency: 6 times per week Estimated Hrs Per Day: .25 hour per day Safety Risks/Education Patient Education: Gait Training, Transfer Techniques Teaching Recipient: Patient Teaching Methods: Demonstration, Discussion Response to Teaching: Verbalize Understanding, Return Demonstration Time Time In: 1116 Time Out: 1133 DATE: Jan 29, 2023 Total Billed Treatment Time: 17 Total Billed Treatment Visit, GT FABIANO MEHTA PT Jan 29, 2023 15:17
[2023-01-29] MEDS: ENOXAPARIN 40 MG/0.4 ML (LOVENOX) SYR SC SCH (16:37)
[2023-01-29] MEDS: MONTELUKAST 10 MG (SINGULAIR) TAB PO SCH (20:02)
[2023-01-29] MEDS: AtorvaSTATin TABLET 10 MG TABLET PO SCH (20:02)
[2023-01-30 03:32] VITALS: BP 122/57
[2023-01-30] MEDS: DOXYCYCLINE INJECTION 100 MG in NS (IVPB) 100 ML IV SCH (05:13)
[2023-01-30 05:26] LABS: BASOPHILS % (AUTO) 0 % (0-10); EOSINOPHILS % (AUTO) 1 % (0-10); HEMATOCRIT 36 % (35-52); HEMOGLOBIN 11.3 g/dL (11.5-16.0); LYMPHOCYTES # (AUTO) 2.9 10^3/uL (1.0-4.0); LYMPHOCYTES % (AUTO) 46 % (12-44); MEAN CORPUSCULAR HEMOGLOBIN 28 pg (25-34); MEAN CORPUSCULAR HGB CONC 32 g/dL (32-36); MEAN CORPUSCULAR VOLUME 90 fL (80-99); MEAN PLATELET VOLUME 8.7 fL (9.0-12.2); MONOCYTES # (AUTO) 0.3 10^3/uL (0.0-1.0); MONOCYTES % (AUTO) 5 % (0-12); NEUTROPHILS % (AUTO) 48 % (42-75); PLATELET COUNT 324 10^3/uL (130-400); WHITE BLOOD COUNT 6.3 10^3/uL (4.3-11.0)
[2023-01-30 05:32] LABS: ALBUMIN 3.1 GM/DL (3.2-4.5)
[2023-01-30 05:33] LABS: POTASSIUM 3.8 MMOL/L (3.6-5.0)
[2023-01-30 05:34] LABS: CALCIUM 8.3 MG/DL (8.5-10.1)
[2023-01-30 05:35] LABS: TOTAL PROTEIN 5.7 GM/DL (6.4-8.2)
[2023-01-30 05:37] LABS: BILIRUBIN,TOTAL 0.2 MG/DL (0.1-1.0)
[2023-01-30 05:38] LABS: CREATININE SERUM 0.77 MG/DL (0.60-1.30)
[2023-01-30] MEDS: inSUlin ASPART (NovoLOG) 1 UNIT/0.01 ML (CHARGE PER UNIT) SC SCH ×2 (05:39→12:04)
[2023-01-30] MEDS: MAGNESIUM 1 GM/100 ML IVPB 100 ML IV SCH (05:47)
[2023-01-30] MEDS: KCL 20 MEQ TAB (K-DUR) PO SCH (06:09)
[2023-01-30] MEDS: POTASSIUM CL 10MEQ/50ML IVPB 50 ML IV SCH ×3 (06:13→06:38)
[2023-01-30] MEDS: ALPRAZolam 0.5 MG (XANAX) TAB PO SCH (06:36)
[2023-01-30 07:24] VITALS: BP 168/88
[2023-01-30] MEDS: CEFEPIME INJECTION 1,000 MG in NS (IVPB) 50 ML IV SCH (08:06)
[2023-01-30] MEDS: ASPIRIN 81 MG CHEW (CHILDREN'S ASA) PO SCH (08:06)
[2023-01-30] MEDS: DOCUSATE SODIUM 100 MG (COLACE) CAP PO SCH (08:07)
[2023-01-30] MEDS: SENNOSIDES 8.6 MG (SENOKOT) TAB PO SCH (08:07)
[2023-01-30] MEDS: CALCIUM CARBONATE 600 MG (CALCARB) TAB PO SCH (08:08)
[2023-01-30] MEDS: VITAMIN D3 125 MCG (5,000 UNITS) CAPSULE PO SCH (08:22)
--- NOTE | 2023-01-30 08:50 | Diagnostic Imaging Report ---
INDICATION: Dyspnea COMPARISON: 01/29/2023 FINDINGS: Single frontal view of the chest demonstrates normal heart size and pulmonary vascularity. The lungs are well aerated and clear. No large pleural effusion or pneumothorax is seen. The visualized osseous structures show no acute abnormalities. Right-sided internal jugular Port-A-Cath is noted with tip in the SVC. IMPRESSION: 1. No acute cardiopulmonary process. Dictated by: Dictated on workstation # [id number]
[2023-01-30] MEDS: RT-BUDESONIDE NEBS 0.5 MG/2ML (PULMICORT) AMP INH SCH (11:03)
[2023-01-30] MEDS: RT-ALBUTEROL/IPRATROPIUM 3 ML (DUONEB) VIAL INH SCH (11:03)
[2023-01-30 11:18] VITALS: BP 157/77
[2023-01-30] MEDS ORDERED: DOXY100T2 PO (11:20)
[2023-01-30] MEDS ORDERED: AMOX1TAB12 PO (11:20)
[2023-01-30] MEDS ORDERED: PRED10TA22 PO (11:20)
[2023-01-30] MEDS ORDERED: IPRA3AMP31 INH (11:20)
[2023-01-30] MEDS ORDERED: MONT-40 PO (11:20)
[2023-01-30] MEDS ORDERED: ASPI81TA64 PO (11:20)
[2023-01-30] MEDS ORDERED: BACI1TAB24 PO (11:20)
--- NOTE | 2023-01-30 11:21 | Discharge Summary ---
Diagnosis/Chief Complaint Date of Admission Jan 25, 2023 at 14:44 Date of Discharge Discharge Date: Jan 30, 2023 Discharge Diagnosis Assessment: Acute hypoxic hypercapneic respiratory failure requiring biPAP then DC and moved to floor but then in more respiratory distress so moved back to ICU 01/27/23 but now back to fourth floor Bronchitis with PNA on repeat CXR placed on Doxy initially then added Cefepime Friday Lung cancer on immunotherapy AECOPD Smoker Hypothyroidism HTN HLP Anxiety Plan: IV steroids wean Maintain Cefepime PT and OT O2 Doxy IV Discharge Summary Discharge Physical Examination Allergies: Coded Allergies: codeine (Verified Allergy, Unknown, 11/15/07) Vitals & I&Os Vital Signs Date Time Temp Pulse Resp B/P (MAP) Pulse Ox O2 Delivery O2 Flow Rate FiO2 01/30/23 14:52 36.8 80 18 157/77 96 Room Air 1.00 01/25/23 16:08 95 General Appearance: Alert, Oriented X3, Cooperative Respiratory: Clear to Auscultation Cardiovascular: Regular Rate Psych/Mental Status: Mental Status NL Hospital Course Was the Problem List Reviewed?: Yes Hospital course: Patient had an uneventful hospital course after she was admitted for acute exacerbation of COPD and acute hypoxia requiring BiPAP and transferred to the ICU from the ER then improved and went to fourth floor but then once again she was having more tachypnea and wheezing prompting transfer back to the ICU chest x-ray revealed a new pneumonia cefepime was added to the Doxy and IV steroids maintained. Overall she did very well and ultimately after a long course was able to discharge home in improved condition. Labs (last 24 hrs) Laboratory Tests 01/25/23 13:35: White Blood Count 4.3, Red Blood Count 4.25, Hemoglobin 12.3, Hematocrit 38, Mean Corpuscular Volume 89, Mean Corpuscular Hemoglobin 29, Mean Corpuscular Hemoglobin Concent 33, Red Cell Distribution Width 13.6, Platelet Count 278, Mean Platelet Volume 8.4L, Immature Granulocyte % (Auto) 0, Neutrophils (%) (Auto) 67, Lymphocytes (%) (Auto) 20, Monocytes (%) (Auto) 8, Eosinophils (%) (Auto) 4, Basophils (%) (Auto) 1, Neutrophils # (Auto) 2.9, Lymphocytes # (Auto) 0.9L, Monocytes # (Auto) 0.3, Eosinophils # (Auto) 0.2, Basophils # (Auto) 0.0, Immature Granulocyte # (Auto) 0.0, Prothrombin Time 14.6, INR Comment 1.1, Activated Partial Thromboplast Time 41H, D-Dimer 1.64H, Sodium Level 134L, Potassium Level 3.1L, Chloride Level 97L, Carbon Dioxide Level 25, Anion Gap 12, Blood Urea Nitrogen 7, Creatinine 0.88, Estimat Glomerular Filtration Rate 72, BUN/Creatinine Ratio 8, Glucose Level 133H, Lactic Acid Level 1.02, Calcium Level 8.6, Corrected Calcium 8.8, Total Bilirubin 0.4, Aspartate Amino Transf (AST/SGOT) 18, Alanine Aminotransferase (ALT/SGPT) 13, Alkaline Phosphatase 117, Troponin I 0.041H, B-Type Natriuretic Peptide 165.4H, Total Protein 7.1, Albumin 3.8 01/25/23 13:43: Blood Gas Puncture Site UNK, Blood Gas Patient Temperature 38, Arterial Blood pH 7.33*L, Arterial Blood Partial Pressure CO2 50H, Arterial Blood Partial Pressure O2 141H, Arterial Blood HCO3 26, Arterial Blood Total CO2 27.0, Arterial Blood Oxygen Saturation 99, Arterial Blood Base Excess 0.5, John Test UNK, Blood Gas Ventilator Setting NO, Blood Gas Inspired Oxygen UNK 01/25/23 14:03: Blood Gas Puncture Site RIGHT RADIAL, Blood Gas Patient Temperature 37, Arterial Blood pH 7.38, Arterial Blood Partial Pressure CO2 44, Arterial Blood Partial Pressure O2 80, Arterial Blood HCO3 26, Arterial Blood Total CO2 26.9, Arterial Blood Oxygen Saturation 97, Arterial Blood Base Excess 1.1, John Test POSITIVE, Blood Gas Ventilator Setting NO, Blood Gas Inspired Oxygen 30% 01/25/23 14:44: Influenza Type A (RT-PCR) Not Detected, Influenza Type B (RT-PCR) Not Detected, SARS-CoV-2 RNA (RT-PCR) Not Detected 01/25/23 21:22: Glucometer 293H 01/26/23 04:23: White Blood Count 2.7L, Red Blood Count 4.13, Hemoglobin 11.9, Hematocrit 36, Mean Corpuscular Volume 88, Mean Corpuscular Hemoglobin 29, Mean Corpuscular Hemoglobin Concent 33, Red Cell Distribution Width 13.5, Platelet Count 305, Mean Platelet Volume 8.3L, Immature Granulocyte % (Auto) 0, Neutrophils (%) (Auto) 72, Lymphocytes (%) (Auto) 22, Monocytes (%) (Auto) 6, Eosinophils (%) (Auto) 0, Basophils (%) (Auto) 0, Neutrophils # (Auto) 2.0, Lymphocytes # (Auto) 0.6L, Monocytes # (Auto) 0.2, Eosinophils # (Auto) 0.0, Basophils # (Auto) 0.0, Immature Granulocyte # (Auto) 0.0, Sodium Level 138, Potassium Level 2.9L, Chloride Level 102, Carbon Dioxide Level 22, Anion Gap 14, Blood Urea Nitrogen 9, Creatinine 0.91, Estimat Glomerular Filtration Rate 70, BUN/Creatinine Ratio 10, Glucose Level 170H, Mean Blood Glucose 108, Hemoglobin A1c 5.4, Calcium Level 8.3L, Corrected Calcium 8.5, Phosphorus Level 2.5, Magnesium Level 2.2, Total Bilirubin 0.3, Aspartate Amino Transf (AST/SGOT) 15, Alanine Aminotransferase (ALT/SGPT) 12, Alkaline Phosphatase 112, Troponin I 0.092H, Total Protein 6.9, Albumin 3.7 01/26/23 11:08: Glucometer 175H 01/26/23 19:47: Glucometer 93 01/27/23 04:30: White Blood Count 5.3, Red Blood Count 4.03, Hemoglobin 11.6, Hematocrit 36, Mean Corpuscular Volume 90, Mean Corpuscular Hemoglobin 29, Mean Corpuscular Hemoglobin Concent 32, Red Cell Distribution Width 13.8, Platelet Count 305, Mean Platelet Volume 8.5L, Immature Granulocyte % (Auto) 1, Neutrophils (%) (Auto) 83H, Lymphocytes (%) (Auto) 12, Monocytes (%) (Auto) 4, Eosinophils (%) (Auto) 0, Basophils (%) (Auto) 0, Neutrophils # (Auto) 4.4, Lymphocytes # (Auto) 0.7L, Monocytes # (Auto) 0.2, Eosinophils # (Auto) 0.0, Basophils # (Auto) 0.0, Immature Granulocyte # (Auto) 0.0, Sodium Level 143, Potassium Level 4.2, Chloride Level 109H, Carbon Dioxide Level 25, Anion Gap 9, Blood Urea Nitrogen 9, Creatinine 0.85, Estimat Glomerular Filtration Rate 76, BUN/Creatinine Ratio 11, Glucose Level 138H, Calcium Level 8.5, Corrected Calcium 8.9, Magnesium Level 2.2, Total Bilirubin 0.2, Aspartate Amino Transf (AST/SGOT) 17, Alanine Aminotransferase (ALT/SGPT) 15, Alkaline Phosphatase 99, Total Protein 6.6, Albumin 3.5 01/27/23 11:09: Glucometer 145H 01/27/23 11:20: Blood Gas Puncture Site R RAD, Blood Gas Patient Temperature 37, Arterial Blood pH 7.40, Arterial Blood Partial Pressure CO2 40, Arterial Blood Partial Pressure O2 83, Arterial Blood HCO3 24, Arterial Blood Total CO2 25.3, Arterial Blood Oxygen Saturation 97, Arterial Blood Base Excess -0.1, John Test YES-POS, Blood Gas Ventilator Setting NO, Blood Gas Inspired Oxygen 2 01/27/23 15:40: Glucometer 134H 01/27/23 20:37: Glucometer 115H 01/28/23 03:18: White Blood Count 4.9, Red Blood Count 4.01, Hemoglobin 11.3L, Hematocrit 36, Mean Corpuscular Volume 90, Mean Corpuscular Hemoglobin 28, Mean Corpuscular Hemoglobin Concent 31L, Red Cell Distribution Width 13.9, Platelet Count 327, Mean Platelet Volume 8.6L, Immature Granulocyte % (Auto) 1, Neutrophils (%) (Auto) 81H, Lymphocytes (%) (Auto) 15, Monocytes (%) (Auto) 4, Eosinophils (%) (Auto) 0, Basophils (%) (Auto) 0, Neutrophils # (Auto) 4.0, Lymphocytes # (Auto) 0.8L, Monocytes # (Auto) 0.2, Eosinophils # (Auto) 0.0, Basophils # (Auto) 0.0, Immature Granulocyte # (Auto) 0.0, Sodium Level 141, Potassium Level 3.6, Chloride Level 109H, Carbon Dioxide Level 22, Anion Gap 10, Blood Urea Nitrogen 11, Creatinine 0.78, Estimat Glomerular Filtration Rate 84, BUN/Creatinine Ratio 14, Glucose Level 134H, Calcium Level 8.2L, Corrected Calcium 8.6, Magnesium Level 2.5H, Total Bilirubin 0.2, Aspartate Amino Transf (AST/SGOT) 15, Alanine Aminotransferase (ALT/SGPT) 14, Alkaline Phosphatase 90, Total Protein 6.4, Albumin 3.5 01/28/23 03:25: Blood Gas Puncture Site R RAD, Blood Gas Patient Temperature 36.7, Arterial Blood pH 7.40, Arterial Blood Partial Pressure CO2 39, Arterial Blood Partial Pressure O2 95H, Arterial Blood HCO3 24, Arterial Blood Total CO2 25.3, Arterial Blood Oxygen Saturation 98, Arterial Blood Base Excess -0.1, John Test YES-POS, Blood Gas Ventilator Setting NO, Blood Gas Inspired Oxygen 30% 01/28/23 10:43: Glucometer 117H 01/28/23 15:28: Glucometer 140H 01/28/23 20:23: Glucometer 111H 01/29/23 04:43: White Blood Count 4.3, Red Blood Count 4.08, Hemoglobin 11.5, Hematocrit 37, Mean Corpuscular Volume 90, Mean Corpuscular Hemoglobin 28, Mean Corpuscular Hemoglobin Concent 31L, Red Cell Distribution Width 13.9, Platelet Count 312, Mean Platelet Volume 8.5L, Immature Granulocyte % (Auto) 0, Neutrophils (%) (Auto) 66, Lymphocytes (%) (Auto) 30, Monocytes (%) (Auto) 4, Eosinophils (%) (Auto) 0, Basophils (%) (Auto) 0, Neutrophils # (Auto) 2.8, Lymphocytes # (Auto) 1.3, Monocytes # (Auto) 0.2, Eosinophils # (Auto) 0.0, Basophils # (Auto) 0.0, Immature Granulocyte # (Auto) 0.0, Sodium Level 141, Potassium Level 4.3, Chloride Level 113H, Carbon Dioxide Level 21, Anion Gap 7, Blood Urea Nitrogen 9, Creatinine 0.73, Estimat Glomerular Filtration Rate 91, BUN/Creatinine Ratio 12, Glucose Level 104, Calcium Level 8.4L, Corrected Calcium 9.0, Magnesium Level 2.2, Total Bilirubin 0.2, Aspartate Amino Transf (AST/SGOT) 16, Alanine Aminotransferase (ALT/SGPT) 19, Alkaline Phosphatase 83, Total Protein 6.1L, Albumin 3.3 01/29/23 11:39: Glucometer 188H 01/29/23 16:18: Glucometer 148H 01/29/23 19:49: Glucometer 126H 01/30/23 05:11: White Blood Count 6.3, Red Blood Count 3.99, Hemoglobin 11.3L, Hematocrit 36, Mean Corpuscular Volume 90, Mean Corpuscular Hemoglobin 28, Mean Corpuscular Hemoglobin Concent 32, Red Cell Distribution Width 14.2, Platelet Count 324, Mean Platelet Volume 8.7L, Immature Granulocyte % (Auto) 1, Neutrophils (%) (Auto) 48, Lymphocytes (%) (Auto) 46H, Monocytes (%) (Auto) 5, Eosinophils (%) (Auto) 1, Basophils (%) (Auto) 0, Neutrophils # (Auto) 3.0, Lymphocytes # (Auto) 2.9, Monocytes # (Auto) 0.3, Eosinophils # (Auto) 0.0, Basophils # (Auto) 0.0, Immature Granulocyte # (Auto) 0.0, Sodium Level 139, Potassium Level 3.8, Chloride Level 111H, Carbon Dioxide Level 21, Anion Gap 7, Blood Urea Nitrogen 11, Creatinine 0.77, Estimat Glomerular Filtration Rate 85, BUN/Creatinine Ratio 14, Glucose Level 81, Calcium Level 8.3L, Corrected Calcium 9.0, Magnesium Level 2.0, Total Bilirubin 0.2, Aspartate Amino Transf (AST/SGOT) 13, Alanine Aminotransferase (ALT/SGPT) 17, Alkaline Phosphatase 77, Total Protein 5.7L, Albumin 3.1L 01/30/23 11:04: Glucometer 121H Microbiology 01/25/23 MRSA Screen - Final, Complete MRSA not isolated 01/25/23 Blood Culture - Final, Complete No growth Pending Labs Microbiology Date/Time Source Procedure Growth Status 01/25/23 16:00 Nasal MRSA Screen - Final MRSA not isolated Complete 01/25/23 14:06 Peripheral Lt Ac Blood Culture - Final No growth Complete 01/25/23 13:40 Peripheral Other Blood Culture - Final No growth Complete 01/25/23 13:35 Peripheral Lt Ac Blood Culture - Final No growth Complete Laboratory Tests 01/25/23 13:35: White Blood Count 4.3, Red Blood Count 4.25, Hemoglobin 12.3, Hematocrit 38, Mean Corpuscular Volume 89, Mean Corpuscular Hemoglobin 29, Mean Corpuscular Hemoglobin Concent 33, Red Cell Distribution Width 13.6, Platelet Count 278, Mean Platelet Volume 8.4, Immature Granulocyte % (Auto) 0, Neutrophils (%) (Auto) 67, Lymphocytes (%) (Auto) 20, Monocytes (%) (Auto) 8, Eosinophils (%) (Auto) 4, Basophils (%) (Auto) 1, Neutrophils # (Auto) 2.9, Lymphocytes # (Auto) 0.9, Monocytes # (Auto) 0.3, Eosinophils # (Auto) 0.2, Basophils # (Auto) 0.0, Immature Granulocyte # (Auto) 0.0, Prothrombin Time 14.6, INR Comment 1.1, Activated Partial Thromboplast Time 41, D-Dimer 1.64, Sodium Level 134, Potassium Level 3.1, Chloride Level 97, Carbon Dioxide Level 25, Anion Gap 12, Blood Urea Nitrogen 7, Creatinine 0.88, Estimat Glomerular Filtration Rate 72, BUN/Creatinine Ratio 8, Glucose Level 133, Lactic Acid Level 1.02, Calcium Level 8.6, Corrected Calcium 8.8, Total Bilirubin 0.4, Aspartate Amino Transf (AST/SGOT) 18, Alanine Aminotransferase (ALT/SGPT) 13, Alkaline Phosphatase 117, Troponin I 0.041, B-Type Natriuretic Peptide 165.4, Total Protein 7.1, Albumin 3.8 01/25/23 13:43: Blood Gas Puncture Site UNK, Blood Gas Patient Temperature 38, Arterial Blood pH 7.33, Arterial Blood Partial Pressure CO2 50, Arterial Blood Partial Pressure O2 141, Arterial Blood HCO3 26, Arterial Blood Total CO2 27.0, Arterial Blood Oxygen Saturation 99, Arterial Blood Base Excess 0.5, John Test UNK, Blood Gas Ventilator Setting NO, Blood Gas Inspired Oxygen UNK 01/25/23 14:03: Blood Gas Puncture Site RIGHT RADIAL, Blood Gas Patient Temperature 37, Arterial Blood pH 7.38, Arterial Blood Partial Pressure CO2 44, Arterial Blood Partial Pressure O2 80, Arterial Blood HCO3 26, Arterial Blood Total CO2 26.9, Arterial Blood Oxygen Saturation 97, Arterial Blood Base Excess 1.1, John Test POSITIVE, Blood Gas Ventilator Setting NO, Blood Gas Inspired Oxygen 30% 01/25/23 14:44: Influenza Type A (RT-PCR) Not Detected, Influenza Type B (RT-PCR) Not Detected, SARS-CoV-2 RNA (RT-PCR) Not Detected 01/25/23 21:22: Glucometer 293 01/26/23 04:23: White Blood Count 2.7, Red Blood Count 4.13, Hemoglobin 11.9, Hematocrit 36, Mean Corpuscular Volume 88, Mean Corpuscular Hemoglobin 29, Mean Corpuscular Hemoglobin Concent 33, Red Cell Distribution Width 13.5, Platelet Count 305, Mean Platelet Volume 8.3, Immature Granulocyte % (Auto) 0, Neutrophils (%) (Auto) 72, Lymphocytes (%) (Auto) 22, Monocytes (%) (Auto) 6, Eosinophils (%) (Auto) 0, Basophils (%) (Auto) 0, Neutrophils # (Auto) 2.0, Lymphocytes # (Auto) 0.6, Monocytes # (Auto) 0.2, Eosinophils # (Auto) 0.0, Basophils # (Auto) 0.0, Immature Granulocyte # (Auto) 0.0, Sodium Level 138, Potassium Level 2.9, Chlori de Level 102, Carbon Dioxide Level 22, Anion Gap 14, Blood Urea Nitrogen 9, Creatinine 0.91, Estimat Glomerular Filtration Rate 70, BUN/Creatinine Ratio 10, Glucose Level 170, Mean Blood Glucose 108, Hemoglobin A1c 5.4, Calcium Level 8.3, Corrected Calcium 8.5, Phosphorus Level 2.5, Magnesium Level 2.2, Total Bilirubin 0.3, Aspartate Amino Transf (AST/SGOT) 15, Alanine Aminotransferase (ALT/SGPT) 12, Alkaline Phosphatase 112, Troponin I 0.092, Total Protein 6.9, Albumin 3.7 01/26/23 11:08: Glucometer 175 01/26/23 19:47: Glucometer 93 01/27/23 04:30: White Blood Count 5.3, Red Blood Count 4.03, Hemoglobin 11.6, Hematocrit 36, Mean Corpuscular Volume 90, Mean Corpuscular Hemoglobin 29, Mean Corpuscular Hemoglobin Concent 32, Red Cell Distribution Width 13.8, Platelet Count 305, Mean Platelet Volume 8.5, Immature Granulocyte % (Auto) 1, Neutrophils (%) (Auto) 83, Lymphocytes (%) (Auto) 12, Monocytes (%) (Auto) 4, Eosinophils (%) (Auto) 0, Basophils (%) (Auto) 0, Neutrophils # (Auto) 4.4, Lymphocytes # (Auto) 0.7, Monocytes # (Auto) 0.2, Eosinophils # (Auto) 0.0, Basophils # (Auto) 0.0, Immature Granulocyte # (Auto) 0.0, Sodium Level 143, Potassium Level 4.2, Chloride Level 109, Carbon Dioxide Level 25, Anion Gap 9, Blood Urea Nitrogen 9, Creatinine 0.85, Estimat Glomerular Filtration Rate 76, BUN/Creatinine Ratio 11, Glucose Level 138, Calcium Level 8.5, Corrected Calcium 8.9, Magnesium Level 2.2, Total Bilirubin 0.2, Aspartate Amino Transf (AST/SGOT) 17, Alanine Aminotransferase (ALT/SGPT) 15, Alkaline Phosphatase 99, Total Protein 6.6, Albumin 3.5 01/27/23 11:09: Glucometer 145 01/27/23 11:20: Blood Gas Puncture Site R RAD, Blood Gas Patient Temperature 37, Arterial Blood pH 7.40, Arterial Blood Partial Pressure CO2 40, Arterial Blood Partial Pressure O2 83, Arterial Blood HCO3 24, Arterial Blood Total CO2 25.3, Arterial Blood Oxygen Saturation 97, Arterial Blood Base Excess -0.1, John Test YES-POS, Blood Gas Ventilator Setting NO, Blood Gas Inspired Oxygen 2 01/27/23 15:40: Glucometer 134 01/27/23 20:37: Glucometer 115 01/28/23 03:18: White Blood Count 4.9, Red Blood Count 4.01, Hemoglobin 11.3, Hematocrit 36, Mean Corpuscular Volume 90, Mean Corpuscular Hemoglobin 28, Mean Corpuscular Hemoglobin Concent 31, Red Cell Distribution Width 13.9, Platelet Count 327, Mean Platelet Volume 8.6, Immature Granulocyte % (Auto) 1, Neutrophils (%) (Auto) 81, Lymphocytes (%) (Auto) 15, Monocytes (%) (Auto) 4, Eosinophils (%) (Auto) 0, Basophils (%) (Auto) 0, Neutrophils # (Auto) 4.0, Lymphocytes # (Auto) 0.8, Monocytes # (Auto) 0.2, Eosinophils # (Auto) 0.0, Basophils # (Auto) 0.0, Immature Granulocyte # (Auto) 0.0, Sodium Level 141, Potassium Level 3.6, Chloride Level 109, Carbon Dioxide Level 22, Anion Gap 10, Blood Urea Nitrogen 11, Creatinine 0.78, Estimat Glomerular Filtration Rate 84, BUN/Creatinine Ratio 14, Glucose Level 134, Calcium Level 8.2, Corrected Calcium 8.6, Magnesium Level 2.5, Total Bilirubin 0.2, Aspartate Amino Transf (AST/SGOT) 15, Alanine Aminotransferase (ALT/SGPT) 14, Alkaline Phosphatase 90, Total Protein 6.4, Albumin 3.5 6/13/23 03:25: Blood Gas Puncture Site R RAD, Blood Gas Patient Temperature 36.7, Arterial Blood pH 7.40, Arterial Blood Partial Pressure CO2 39, Arterial Blood Partial Pressure O2 95, Arterial Blood HCO3 24, Arterial Blood Total CO2 25.3, Arterial Blood Oxygen Saturation 98, Arterial Blood Base Excess -0.1, John Test YES-POS, Blood Gas Ventilator Setting NO, Blood Gas Inspired Oxygen 30% 01/28/23 10:43: Glucometer 117 01/28/23 15:28: Glucometer 140 01/28/23 20:23: Glucometer 111 01/29/23 04:43: White Blood Count 4.3, Red Blood Count 4.08, Hemoglobin 11.5, Hematocrit 37, Mean Corpuscular Volume 90, Mean Corpuscular Hemoglobin 28, Mean Corpuscular Hemoglobin Concent 31, Red Cell Distribution Width 13.9, Platelet Count 312, Mean Platelet Volume 8.5, Immature Granulocyte % (Auto) 0, Neutrophils (%) (Auto) 66, Lymphocytes (%) (Auto) 30, Monocytes (%) (Auto) 4, Eosinophils (%) (Auto) 0, Basophils (%) (Auto) 0, Neutrophils # (Auto) 2.8, Lymphocytes # (Auto) 1.3, Monocytes # (Auto) 0.2, Eosinophils # (Auto) 0.0, Basophils # (Auto) 0.0, Immature Granulocyte # (Auto) 0.0, Sodium Level 141, Potassium Level 4.3, Chl oride Level 113, Carbon Dioxide Level 21, Anion Gap 7, Blood Urea Nitrogen 9, Creatinine 0.73, Estimat Glomerular Filtration Rate 91, BUN/Creatinine Ratio 12, Glucose Level 104, Calcium Level 8.4, Corrected Calcium 9.0, Magnesium Level 2.2, Total Bilirubin 0.2, Aspartate Amino Transf (AST/SGOT) 16, Alanine Aminotransferase (ALT/SGPT) 19, Alkaline Phosphatase 83, Total Protein 6.1, Albumin 3.3 01/29/23 11:39: Glucometer 188 01/29/23 16:18: Glucometer 148 01/29/23 19:49: Glucometer 126 01/30/23 05:11: White Blood Count 6.3, Red Blood Count 3.99, Hemoglobin 11.3, Hematocrit 36, Mean Corpuscular Volume 90, Mean Corpuscular Hemoglobin 28, Mean Corpuscular Hemoglobin Concent 32, Red Cell Distribution Width 14.2, Platelet Count 324, Mean Platelet Volume 8.7, Immature Granulocyte % (Auto) 1, Neutrophils (%) (Aut o) 48, Lymphocytes (%) (Auto) 46, Monocytes (%) (Auto) 5, Eosinophils (%) (Auto) 1, Basophils (%) (Auto) 0, Neutrophils # (Auto) 3.0, Lymphocytes # (Auto) 2.9, Monocytes # (Auto) 0.3, Eosinophils # (Auto) 0.0, Basophils # (Auto) 0.0, Immature Granulocyte # (Auto) 0.0, Sodium Level 139, Potassium Level 3.8, Chloride Level 111, Carbon Dioxide Level 21, Anion Gap 7, Blood Urea Nitrogen 11, Creatinine 0.77, Estimat Glomerular Filtration Rate 85, BUN/Creatinine Ratio 14, Glucose Level 81, Calcium Level 8.3, Corrected Calcium 9.0, Magnesium Level 2.0, Total Bilirubin 0.2, Aspartate Amino Transf (AST/SGOT) 13, Alanine Aminotransferase (ALT/SGPT) 17, Alkaline Phosphatase 77, Total Protein 5.7, Albumin 3.1 01/30/23 11:04: Glucometer 121 Discharge Home Medications: Active Scripts Active Probiotic (Bacillus Coagulans) 1 Billion Cell Tab.chew 1 Each PO TID Doxycycline Hyclate 100 Mg Tablet 100 Mg PO BID Amox Tr-K Clv 875-125 mg Tab (Amoxicillin/Potassium Clav) 875 Mg-125 Mg Tablet 1 Each PO BID Prednisone 10 Mg Tab.ds.pk 40 Mg PO DAILY 4 pills once daily for 2 days then 3 pills once daily for 2 days then 2 pills once daily for 2 days then 1 pill daily for 2 days Montelukast Sodium 10 Mg Tablet 10 Mg PO HS Children's Aspirin (Aspirin) 81 Mg Tab.chew 81 Mg PO DAILY Iprat-Albut 0.5-3(2.5) mg/3 ml (Ipratropium/Albuterol Sulfate) 0.5 Mg-3 Mg (2.5 Mg Base)/3 Ml Ampul.neb 3 Ml INH TID Reported Melatonin 5 Mg Tablet 5 Mg PO HS PRN Calcium (Calcium Carbonate) 500 Mg Calcium (1250 Mg) Tab.chew 500 Mg PO BID Vitamin D3 (Cholecalciferol (Vitamin D3)) 125 Mcg (5000 Unit) Capsule 125 Mcg PO DAILY Zoledronic Acid 4 Mg Vial 3 Mg IV EVERY 6 WEEKS Keytruda (Pembrolizumab) 100 Mg/4 Ml (25 Mg/Ml) Vial 200 Mg IV EVERY 3 WEEKS Pantoprazole Sodium 40 Mg Tablet.dr 40 Mg PO 1300 Tramadol HCl 50 Mg Tablet 100 Mg PO DAILY TAKES 2 (50MG) TABS Folic Acid 1 Mg Tablet 1 Mg PO 1300 Pravastatin Sodium 20 Mg Tablet 20 Mg PO HS Furosemide 20 Mg Tablet 20 Mg PO DAILY Metoprolol Tartrate 100 Mg Tablet 100 Mg PO 1300 Alprazolam 0.5 Mg Tablet 0.5 Mg PO 0700,1300 Instructions to patient/family Please see electronic discharge instructions given to patient. MARCOS IBRAHIM DO Jan 30, 2023 11:21
--- NOTE | 2023-01-30 11:21 | Physical Therapy Daily Note ---
PT Daily Note-Current Subjective Patient agrees to PT. Pain Section J - Health Conditions 1. Rarely or not at all 2. Occasionally 3. Frequently 4. Almost constantly 8. Unable to answer Pain Effect on Sleep: 1 Pain Interference with Therapy: 1 Pain Interference w/Day-to-Day: 1 Mental Status Patient Orientation: Normal For Age Transfers SCALE: Activities may be completed with or without assistive devices. 8-[id number] completes the activity by him/herself with no assistance from a helper. 5-Set-up or Clean-up Assistance-helper sets up or cleans up; patient completes activity. [place] assists only prior to or following the activity. 4-Supervision or Touching Assistance-helper provides verbal cues and/or touching/steadying and/or contact guard assistance as patient completes activity. Assistance may be provided throughout the activity or intermittently. 3-Partial/Moderate Assistance-helper does LESS THAN HALF the effort. [place] lifts, holds or supports trunk or limbs, but provides less than half the effort. 2-Substantial/Maximal Assistance-helper does MORE THAN HALF the effort. [place] lifts or holds trunk or limbs and provides more than half the effort. 8-Qgpbfynoj-[id number] does ALL the effort. Patient does none of the effort to complete the activity. Or, the assistance of 2 or more helpers is required for the patient to complete the activity. If activity was not attempted, code reason: 7-Patient Refused. 9-Not Applicable-not attempted and the patient did not perform the activity before the current illness, exacerbation or injury. 10-Not Attempted due to Environmental Limitations-(lack of equipment, weather restraints, etc.). 88-Not Attempted due to Medical Conditions or Safety Concerns. Sit to Stand (QC): 6 Gait Training Distance: >500' Walk 10 feet (QC): 6 Walk 50 ft with 2 Turns(QC): 6 Walk 150 ft (QC): 6 Gait Assistive Device: FWW slow, steady, safe and functional Assessment Patient requires time to complete all functional tasks. Patient is currently at independent PLOF with all gross motor skills and no longer requires skilled PT intervention at this time. PT to dismiss patient from services. PT Long-Term Goals Long-Term Goals PT Long-Term Goals Time Frame: Feb 15, 2023 Roll Left & Right (QC): 6 Sit to Lying (QC): 6 Lying-Sitting on Side/Bed(QC): 6 Sit to Stand (QC): 4 Chair/Nqt-ol-Ltaam Xfer(QC): 4 Walk 10 feet (QC): 4 Walk 50ft with 2 Turns (QC): 4 PT Plan Treatment/Plan Treatment Plan: Discontinue PT Treatment Plan: Bed Mobility, Education, Functional Activity [place], Functional Strength, Gait, Safety, Therapeutic Exercise, Transfers Treatment Duration: Feb 15, 2023 Frequency: 6 times per week Estimated Hrs Per Day: .25 hour per day Time Time In: 1002 Time Out: 1027 DATE: Jan 30, 2023 Total Billed Treatment Time: 25 Total Billed Treatment 1 visit FA x 2 25 min ADONIS HANSEN PT Jan 30, 2023 11:20
--- NOTE | 2023-01-30 14:14 | Occupational Ther Daily Note ---
OT Current Status-Daily Note Subjective Up sitting jamie cross apple sauce w/ feet tucked under bottom in recliner, agreeable to OT Pain Numeric Pain Scale: 0-No Pain Mental Status/Objective Patient Orientation: Person, Place, Time, Situation no attachments, 02 discontinued ADL-Treatment VC for breath support only during tasks. Therapy Code Descriptions/Definitions Functional [place] Measure: 0=Not Assessed/NA 4=Minimal Assistance 1=Total Assistance 5=Supervision or Setup 2=Maximal Assistance 6=Modified [place] 3=Moderate Assistance 7=Complete IndependenceSCALE: Activities may be completed with or without assistive devices. 9-Fupkbeaaiz-bsvealj completes the activity by him/herself with no assistance from a helper. 5-Set-up or Clean-up Assistance-helper sets up or cleans up; patient completes activity. [place] assists only prior to or following the activity. 4-Supervision or Touching Assistance-helper provides verbal cues and/or touching/steadying and/or contact guard assistance as patient completes activity. Assistance may be provided throughout the activity or intermittently. 3-Partial/Moderate Assistance-helper does LESS THAN HALF the effort. [place] lifts, holds or supports trunk or limbs, but provides less than half the effort. 2-Substantial/Maximal Assistance-helper does MORE THAN HALF the effort. [place] lifts or holds trunk or limbs and provides more than half the effort. 3-Ommiarksi-pjlkha does ALL the effort. Patient does none of the effort to complete the activity. Or, the assistance of 2 or more helpers is required for the patient to complete the activity. If activity was not attempted, code reason: 7-Patient Refused. 9-Not Applicable-not attempted and the patient did not perform the activity before the current illness, exacerbation or injury. 10-Not Attempted due to Environmental Limitations-(lack of equipment, weather restraints, etc.). 88-Not Attempted due to Medical Conditions or Safety Concerns. Eating (QC): 6 Oral Hygiene (QC): 6 Shower/Bathe Self (QC): 7 Upper Body Dressing (QC): 6 Lower Body Dressing (QC): 6 On/Off Footwear: 6 Toileting Hygiene (QC): 6 Toilet Transfer (QC): 6 Education OT Patient Education: Energy conservation, Modified ADL techniques, Progress toward Goal/Update tx plan, Reviewed precautions, Rehab process, Safety issues Teaching Recipient: Patient Teaching Methods: Demonstration Response to Teaching: Return Demonstration OT [employer] Goals [facility] Goals Eating (QC): 6 Oral Hygiene (QC): 6 Toileting Hygiene (QC): 6 Shower/Bathe Self (QC): 6 Upper Body Dressing (QC): 6 Lower Body Dressing (QC): 5 On/Off Footwear (QC): 6 1=Demonstrate adherence to instructed precautions during ADL tasks. 2=Patient will verbalize/demonstrate understanding of assistive de vices/modifications for ADL. 3=Patient will improve strength/tolerance for activity to enable patient to perform ADL's. OT Education/Plan Problem List/Assessment Assessment: No Skilled OT Needs ID'd Discharge Recommendations Plan/Recommendations: Discharge/Goals Met Treatment Plan/Plan of Care Patient would benefit from OT for education, treatment and training to promote independence in ADL's, mobility, safety and/or upper extremity function for ADL's. Plan of Care: ADL Retraining, Functional Mobility, Group Exercise/Act as Ind, UE Funct Exercise/Act Treatment Duration: Feb 01, 2023 Frequency: 3 times per week (3-5 times per week) Estimated Hrs Per Day: .25 hour per day Agreement: Yes Rehab Potential: Guarded Time Start Time: 10:05 Stop Time: 10:25 DATE: Jan 30, 2023 Total Time Billed (hr/min): 20 Billed Treatment Time ADL 20 min ALEXI KIRKPATRICK OT Jan 30, 2023 14:14
[2023-01-30 14:52] VITALS: BP 157/77
== END 2023-01-30 13:05 | disposition home or self-care (01) | DRG 189 ==
LOC: EDUNIT# 13:28 → ER 13:30 → ICU 14:44 → 4TH 01-26 12:54 → ICU 01-27 11:45 → 4TH 01-28 15:14
PROVIDERS: ADMIT Internal Medicine; ATTEND Internal Medicine
PROC: 5A09357 Assistance with Respiratory Ventilation, Less than 24 Consecutive Hours, Continuous Positive Airway Pressure (ICD-10-PCS; principal; 2023-01-25)
DX: J96.01 Acute respiratory failure with hypoxia (principal); J18.9 Pneumonia, unspecified organism; C34.90 Malignant neoplasm of unspecified part of unspecified bronchus or lung; E87.1 Hypo-osmolality and hyponatremia; J96.02 Acute respiratory failure with hypercapnia; F17.210 Nicotine dependence, cigarettes, uncomplicated; E03.9 Hypothyroidism, unspecified; I10 Essential (primary) hypertension; E78.5 Hyperlipidemia, unspecified; E78.00 Pure hypercholesterolemia, unspecified; I73.9 Peripheral vascular disease, unspecified; Z92.21 Personal history of antineoplastic chemotherapy; J43.9 Emphysema, unspecified; F41.9 Anxiety disorder, unspecified; Z20.822 Contact with and (suspected) exposure to COVID-19; Z86.73 Personal history of transient ischemic attack (TIA), and cerebral infarction without residual deficits
CPT/HCPCS: 36415; 36600; 71045; 71275; 80053; 82805; 82947; 83036; 83605; 83735; 83880; 84100; 84484; 85025; 85379; 85610; 85730; 87040; 87081; 87636; 93005; 93306; 94640; 94664; 94760

== ENCOUNTER → 2023-06-13 | Outpatient (CLI) | payer BC ==
[~2023-06-13] MED LIST changes: +AMOX1TAB12 PO; +ASPI81TA64 PO; +BACI1TAB24 PO; +DOXY100T2 PO; +IPRA3AMP31 INH; +MONT-40 PO; +PRED10TA22 PO
--- NOTE | 2023-06-13 16:00 | Diagnostic Imaging Report ---
INDICATION: Carcinoma. Patient was administered 25.2 mCi technetium 99 MDP intravenously and whole-body imaging was performed after a three-hour delay. Correlation is made with prior bone scan from 12/12/2022. Thoracolumbar scoliotic curvature is again noted. The uptake in the mid thoracic spine appears stable. Uptake right maxilla is stable. No new foci trace accumulation is identified. There is physiologic activity within both kidneys with excretion to urinary bladder. IMPRESSION: Stable whole-body bone scan when compared with examination from 12/12/2022. Dictated by: Dictated on workstation # [id number]
== END ==
LOC: CARD 08:08
PROVIDERS: ATTEND Nurse Practitioner Adult Health
DX: Z51.12 Encounter for antineoplastic immunotherapy (principal); C34.12 Malignant neoplasm of upper lobe, left bronchus or lung; Z79.51 Long term (current) use of inhaled steroids
CPT/HCPCS: 78306; A9503